=== PATIENT | female | born 1940 | race Caucasian/White ===

== ENCOUNTER → 2017-04-19 08:27 | Outpatient (CLI) | payer MEDICARE, OTHER, SELFPAY ==
--- NOTE | 2017-04-19 08:38 | US_ITS ---
US abdomen complete HISTORY: Weight loss mid abdominal mass ITS.REASON: EPIGASTRIC PAIN ORDERING PHYSICIAN: Trey Hurtado MD PATIENT AGE: 76 years COMPARISON: None FINDINGS: PANCREAS:Unremarkable. No obvious mass or abnormal fluid collection. No ductal dilatation LIVER:There is a 12 x 8 mm cyst in the right hepatic lobe. There is appropriate direction of blood flow within the portal vein is not enlarged.. Homogeneous echogenicity. No intrahepatic biliary ductal dilatation evident RIGHT KIDNEY:Unremarkable. Normal size and echogenicity. No hydronephrosis LEFT KIDNEY:Unremarkable. No hydronephrosis. Normal size and echogenicity. GALLBLADDER:Previous cholecystectomy. No ductal dilatation. AORTA:There is mild dilatation of the mid abdominal aorta measuring up to 3 cm. SPLEEN:Unremarkable. Normal size and echogenicity ASCITES:None demonstrated. Patient reports palpable mass in the upper midabdomen. This shows extensive shadowing measuring 2.6 cm transverse. Etiology of this is indeterminate. A fibrotic or calcific mass is considered. Suggest CT scan for further evaluation. IMPRESSION: 1. Palpable abdominal mass corresponds to an area of extensive shadowing and is incompletely evaluated by ultrasound. Suggest CT for further evaluation. 2. Mild dilatation of the abdominal aorta measuring up to 3 cm. 3. 12 x 8 mm cyst of the right hepatic lobe 4. Status post cholecystectomy
[2017-04-19 10:14] LABS: Basophils % 0.6 % (0.1-2.0); Eosinophils # 0.1 K/mm3 (0.0-0.4); Eosinophils % 1.1 % (0.1-12.0); Hematocrit 36.6 % (37.0-47.0); Hemoglobin 11.1 g/dL (12.2-16.2); Lymphocytes # 1.5 K/mm3 (0.7-4.5); Lymphocytes % 22.3 K/mm3 (10-50); Mean Corpuscular HGB Conc 30.3 g/dL (31.8-35.4); Mean Corpuscular Hemoglobin 29.1 pg (27.0-31.2); Mean Corpuscular Volume 96.2 fl (81-99); Mean Platelet Volume 7.2 fl (7.4-10.4); Monocytes # 0.5 K/mm3 (0.1-1.0); Monocytes % 7.2 % (1.7-9.3); Neutrophils # 4.6 K/mm3 (1.8-7.8); Neutrophils % 68.9 % (37.0-80.0); Platelet Count 433 K/mm3 (142-424); Red Cell Distribution Width 17.7 % (11.5-17.5); White Blood Count 6.6 K/mm3 (4.8-10.8)
[2017-04-19 12:31] LABS: Alanine Aminotransferase 14 U/L (12-78); Albumin Level 2.5 gm/dL (3.4-5.0); Albumin/Globulin Ratio 0.5 (1.1-1.8); Alkaline Phosphatase 186 U/L (46-116); Aspartate Amino Transferase 11 U/L (15-37); Bilirubin,Total 0.1 mg/dL (0.2-1.0); Blood Urea Nitrogen 21 mg/dL (7-18); Carbon Dioxide 23 mmol/L (21.0-32.0); Chloride 108 mmol/L (98-107); Creatinine,Serum 0.68 mg/dL (0.55-1.02); Estimated Glomerular Filt Rate 84 ml/min (>60); GFR (African American) 102 ML/MIN (>60); Globulin 5.4 gm/dl (1.3-3.2); Glucose 112 mg/dL (74-106); Sodium 142 mmol/L (136-145); Thyroid Stimulating Hormone 0.48 uIU/ml (0.358-3.740); Total Protein,Serum 7.9 gm/dL (6.4-8.2)
== END ==
PROVIDERS: Family Provider Internal Medicine Adolescent Medicine; PCP Internal Medicine Adolescent Medicine; Visit Provider Internal Medicine Adolescent Medicine
DX: R19.06 Epigastric swelling, mass or lump (principal); R63.4 Abnormal weight loss
CPT/HCPCS: 36415; 76700; 80053; 84443; 85025

== ENCOUNTER → 2017-07-23 11:43 | Outpatient (REF) | payer MEDICARE, MEDICAID, SELFPAY ==
[2017-07-23 13:35] LABS: Basophils % 0.6 % (0.1-2.0); Eosinophils # 0.2 K/mm3 (0.0-0.4); Eosinophils % 3.7 % (0.1-12.0); Hematocrit 35.3 % (37.0-47.0); Hemoglobin 10.5 g/dL (12.2-16.2); Lymphocytes # 0.7 K/mm3 (0.7-4.5); Lymphocytes % 17.3 K/mm3 (10-50); Mean Corpuscular HGB Conc 29.7 g/dL (31.8-35.4); Mean Corpuscular Hemoglobin 29.2 pg (27.0-31.2); Mean Corpuscular Volume 98.3 fl (81-99); Mean Platelet Volume 7.2 fl (7.4-10.4); Monocytes # 0.4 K/mm3 (0.1-1.0); Monocytes % 9.4 % (1.7-9.3); Neutrophils # 2.8 K/mm3 (1.8-7.8); Neutrophils % 69.1 % (37.0-80.0); Platelet Count 392 K/mm3 (142-424); Red Blood Count 3.59 M/mm3 (4.20-5.40); White Blood Count 4.1 K/mm3 (4.8-10.8)
[2017-07-23 14:24] LABS: Alanine Aminotransferase 14 U/L (12-78); Albumin Level 2.2 gm/dL (3.4-5.0); Albumin/Globulin Ratio 0.5 (1.1-1.8); Alkaline Phosphatase 173 U/L (46-116); Anion Gap 13.8 mEq/L (5-15); Aspartate Amino Transferase 19 U/L (15-37); Bilirubin,Total 0.2 mg/dL (0.2-1.0); Blood Urea Nitrogen 17 mg/dL (7-18); Calcium 7.8 mg/dL (8.5-10.1); Carbon Dioxide 25 mmol/L (21.0-32.0); Chloride 106 mmol/L (98-107); Creatinine,Serum 0.67 mg/dL (0.55-1.02); Estimated Glomerular Filt Rate 85 ml/min (>60); GFR (African American) 103 ML/MIN (>60); Globulin 4.6 gm/dl (1.3-3.2); Glucose 129 mg/dL (74-106); Potassium 3.8 mmoL/L (3.5-5.1); Sodium 141 mmol/L (136-145); Total Protein,Serum 6.8 gm/dL (6.4-8.2)
[2017-07-23 14:32] LABS: D-Dimer 2170 ng/mL (0-400)
== END ==
LOC: LAB.CARL 11:43
PROVIDERS: Visit Provider Nurse Practitioner Family
DX: R06.00 Dyspnea, unspecified (principal); J44.1 Chronic obstructive pulmonary disease with (acute) exacerbation
CPT/HCPCS: 80053; 85025; 85378

== ENCOUNTER → 2017-11-27 10:23 | Outpatient (REF) | payer MEDICARE, MEDICAID, SELFPAY ==
[2017-11-27 13:35] LABS: Basophils % 0.5 % (0.1-2.0); Eosinophils # 0.1 K/mm3 (0.0-0.4); Eosinophils % 2.1 % (0.1-12.0); Hematocrit 32.8 % (37.0-47.0); Hemoglobin 10.1 g/dL (12.2-16.2); Lymphocytes # 1.2 K/mm3 (0.7-4.5); Lymphocytes % 23.3 K/mm3 (10-50); Mean Corpuscular HGB Conc 30.9 g/dL (31.8-35.4); Mean Corpuscular Hemoglobin 30.3 pg (27.0-31.2); Mean Corpuscular Volume 98.1 fl (81-99); Mean Platelet Volume 7.6 fl (7.4-10.4); Monocytes # 0.2 K/mm3 (0.1-1.0); Monocytes % 4.4 % (1.7-9.3); Neutrophils # 3.6 K/mm3 (1.8-7.8); Neutrophils % 69.7 % (37.0-80.0); Platelet Count 294 K/mm3 (142-424); Red Blood Count 3.34 M/mm3 (4.20-5.40); Red Cell Distribution Width 18.5 % (11.5-17.5); White Blood Count 5.1 K/mm3 (4.8-10.8)
[2017-11-27 14:17] LABS: Alanine Aminotransferase 9 U/L (12-78); Albumin/Globulin Ratio 0.4 (1.1-1.8); Alkaline Phosphatase 155 U/L (46-116); Anion Gap 15.1 mEq/L (5-15); Aspartate Amino Transferase 14 U/L (15-37); Bilirubin,Total 0.2 mg/dL (0.2-1.0); Blood Urea Nitrogen 21 mg/dL (7-18); Calcium 7.8 mg/dL (8.5-10.1); Carbamazepine (Tegretol) 5.7 ug/ml (4.0-12.0); Carbon Dioxide 26 mmol/L (21.0-32.0); Chloride 104 mmol/L (98-107); Creatinine,Serum 0.75 mg/dL (0.55-1.02); Estimated Glomerular Filt Rate 75 ml/min (>60); GFR (African American) 90 ML/MIN (>60); Globulin 4.6 gm/dl (1.3-3.2); Glucose 94 mg/dL (74-106); Potassium 3.1 mmoL/L (3.5-5.1); Sodium 142 mmol/L (136-145); Total Protein,Serum 6.6 gm/dL (6.4-8.2)
== END ==
LOC: LAB.CARL 10:23
PROVIDERS: Visit Provider Internal Medicine Adolescent Medicine
DX: D64.9 Anemia, unspecified (principal)
CPT/HCPCS: 80053; 80156; 85025

== ENCOUNTER → 2018-11-26 17:36 | Outpatient (CLI) | payer MEDICARE, MEDICAID, SELFPAY ==
[2018-11-26 17:45] LABS: Basophils % 0.9 % (0.1-2.0); Eosinophils # 0.2 K/mm3 (0.0-0.4); Eosinophils % 3.5 % (0.1-12.0); Hematocrit 34.1 % (37.0-47.0); Hemoglobin 10.7 g/dL (12.2-16.2); Lymphocytes # 1.4 K/mm3 (0.7-4.5); Lymphocytes % 30.8 % (10-50); Mean Corpuscular HGB Conc 31.5 g/dL (31.8-35.4); Mean Corpuscular Hemoglobin 29.4 pg (27.0-31.2); Mean Corpuscular Volume 93.4 fl (81-99); Mean Platelet Volume 8.3 fl (7.4-10.4); Monocytes # 0.6 K/mm3 (0.1-1.0); Monocytes % 13.3 % (1.7-9.3); Neutrophils # 2.3 K/mm3 (1.8-7.8); Neutrophils % 51.4 % (37.0-80.0); Platelet Count 340 K/mm3 (142-424); Red Blood Count 3.65 M/mm3 (4.20-5.40); Red Cell Distribution Width 16.2 % (11.5-17.5); White Blood Count 4.4 K/mm3 (4.8-10.8)
== END ==
PROVIDERS: Visit Provider Internal Medicine Adolescent Medicine
DX: D64.9 Anemia, unspecified (principal)
CPT/HCPCS: 85025

== ENCOUNTER 2020-01-24 14:53 | Inpatient (IN) | payer MEDICARE, MEDICAID, SELFPAY ==
[2020-01-24] VITALS (8 sets, daily range): BP systolic 127–196; BP diastolic 88–94; PULSE 70–109; RESP 3–28; TEMP 37.6–38; O2SAT 93–98; BMI 38.0; BMI 32.8
--- NOTE | 2020-01-24 14:56 | HMH.EDGENADL ---
ED Disposition Clinical Impression: Acute and chronic respiratory failure with hypoxia, COVID-19, Pneumonia Disposition: Admitted As Inpatient Condition on Discharge: Critical - Critical Care Critical Care Time: Yes Attestation: On , the high probability of a clinically significant, sudden or life threatening deterioration of the following system(s) required my full and direct attention, intervention and personal management. The time I documented below is in addition to time spent performing reported procedures but includes the following listed in this critical care notation. Total Critical Care Time: 41 Vital system(s) involved:: Respiratory Failure My critical care processes included: Assessment & monitoring of V/S, Initial and Re-exams, Data Review/Interpretation, Coordinating Care, Medication Orders and management, Documentation Medical Decision Making - Medical Records Medical records reviewed: Yes: I reviewed the patient's medical records. - Jasmeet Inquiry Pt receiving controlled substance: No Vital Signs: 01/24/20 14:56 Temperature 100.4 F H Temperature Source Rectal Pulse Rate [Radial] 94 H Respiratory Rate 28 H Blood Pressure [Right Arm] 196/91 H Blood Pressure Mean [Right Arm] 126 Blood Pressure Source [Right Arm] Automatic Cuff Blood Pressure Position [Right Arm] Sitting 02 Sat by Pulse Oximetry 93 L Oxygen Delivery Method Non-Rebreather Oxygen Flow Rate (LPM) 10 - Lab Data Lab Results 01/24/20 14:50: WBC 6.4, RBC 4.63, Hgb 12.9, Hct 42.3, MCV 91.3, MCH 27.8, MCHC 30.5 L, RDW 17.6 H, Plt Count 310, MPV 7.8, Neut % (Auto) 77.4, Lymph % (Auto) 13.9, [place] % (Auto) 7.8, Eos % (Auto) 0.1, Baso % (Auto) 0.9, Neut # (Auto) 5.0, Lymph # (Auto) 0.9, [place] # (Auto) 0.5, Eos # (Auto) 0.0, Baso # (Auto) 0.1 01/24/20 14:50: Sodium 143, Potassium 4.7, Chloride 111 H, Carbon Dioxide 21 L, Anion Gap 15.7 H, BUN 38 H, Creatinine 1.40 H, Estimated Creat Clear 57, Estimated GFR 36 L, Est GFR ( Amer) 44 L, Glucose 216 H, Calcium 8.2 L, Total Bilirubin 0.3, AST 42 H, ALT 22, Alkaline Phosphatase 289 H, Troponin I 0.09 H, Total Protein 8.1, Albumin 3.8, Globulin 4.3 H, Albumin/Globulin Ratio 0.9 L 01/24/20 14:50: Lactate 2.9 H 01/24/20 14:50: Urine Color Yellow, Urine Appearance Sl cloudy, Urine pH 6.0, Ur Specific [place] 1.020, Urine Protein 1+, Urine Glucose (UA) Negative, Urine Ketones Negative, Urine Blood 3+, Urine Nitrate Negative, Urine Bilirubin Negative, Urine Urobilinogen 0.2, Ur Leukocyte Esterase 2+ A, Urine RBC 50-100, Urine WBC 50-100, Ur Squamous Epith Cells 5-10, Amorphous Sediment 1+, Urine Bacteria None, RBC Casts Occasional 01/24/20 15:08: Specimen Source Right radial, O2 % 70%, ABG pH 7.37, ABG pCO2 36.2, ABG pO2 110.2 H, ABG HCO3 20.4 L, ABG Total CO2 21.5 L, ABG O2 Saturation 98, ABG Base Excess -4.9 L, Zohaib Test Patient unable, Vent Rate 20, Tidal Volume bipap20/10 01/24/20 15:09: Chlamy pneumoniae PCR Not detected, Adenovirus (PCR) Not detected, B. pertussis DNA (PCR) Not detected, Coronavirus OC43 (PCR) Not detected, Coronavirus HKU1 (PCR) Not detected, Coronavirus 229E (PCR) Not detected, SARS-CoV-2 (PCR) Detected A, Coronavirus NL63 (PCR) Not detected, Human Metapneumovir PCR Not detected, Influenza A (H1) PCR Not detected, Influ A (H1N1/09) PCR Not detected, Influenza A (H3) PCR Not detected, Influenza Type A (PCR) Not detected, Influenza Type B (PCR) Not detected, M. pneumoniae (PCR) Not detected, Parainfluenza 1 (PCR) Not detected, Parainfluenza 2 (PCR) Not detected, Parainfluenza 3 (PCR) Not detected, Parainfluenza 4 (PCR) Not detected, RSV (PCR) Not detected, Entero/Rhino (PCR) Not detected Result diagrams: 01/24/20 14:50 12/19/20 14:50 Orders (Tests/Meds): ED MEDICATIONS Generic Name Dose Route Start Last Admin Trade Name Freq PRN Reason Stop Dose Admin Acetaminophen 650 mg 01/24/20 15:12 Acetaminophen 650mg Suppository RC 02/23/20 15:11 Q6HP PRN Mild pain,fever,headache
--- NOTE | 2020-01-24 14:57 | XR_ITS ---
PROCEDURE: XR CHEST PORTABLE CLINICAL HISTORY: dyspnea Covid19 positive COMPARISON: CR CXR2 XR chest AP from 07/23/2017 FINDINGS: The cardiomediastinal silhouette and pulmonary vascularity are within normal limits. There is evidence of old granulomatous disease with calcified granulomas hilar lymph nodes. There is patchy density in the right lower lobe consistent with an area of infiltrate. Upper lobes are clear . Degenerative changes of the shoulders. IMPRESSION: Patchy right lower lobe pneumonia There are chronic changes in the left lower lobe. Dictated by: Zohaib Spain MD 01/24/2020 15:50 Zohaib Spain MD in [place] 01/24/2020 15:50
[2020-01-24 15:10] LABS: Adenovirus,PCR Not Detected (NotDetected); Bordetella Pertussis Not Detected (NotDetected); Chlamydophila Pneumoniae, PCR Not Detected (NotDetected); Coronavirus 229E Not Detected (NotDetected); Coronavirus NL63 Not Detected (NotDetected); Coronavirus OC43 Not Detected (NotDetected); Coronovirus HKU1,PCR Not Detected (NotDetected); Human Metapneumovirus Not Detected (NotDetected); Influenza A, PCR Not Detected (NotDetected); Influenza AH1, 2009 Not Detected (NotDetected); Influenza AH1, PCR Not Detected (NotDetected); Influenza AH3,PCR Not Detected (NotDetected); Influenza B, PCR Not Detected (NotDetected); Mycoplasma Pneumoniae, PCR Not Detected (NotDetected); Parainfluenza 1, PCR Not Detected (NotDetected); Parainfluenza 2, PCR Not Detected (NotDetected); Parainfluenza 3, PCR Not Detected (NotDetected); Parainfluenza 4, PCR Not Detected (NotDetected); Respiratory Syncytial Virus Not Detected (NotDetected); Rhinovirus/Enterovirus Not Detected (NotDetected)
[2020-01-24 15:11] LABS: Basophils # 0.1 K/mm3 (0-0.2); Basophils % 0.9 % (0.1-2.0); Eosinophils % 0.1 % (0.1-12.0); Hematocrit 42.3 % (37.0-47.0); Hemoglobin 12.9 g/dL (12.2-16.2); Lymphocytes # 0.9 K/mm3 (0.7-4.5); Lymphocytes % 13.9 % (10-50); Mean Corpuscular HGB Conc 30.5 g/dL (31.8-35.4); Mean Corpuscular Hemoglobin 27.8 pg (27.0-31.2); Mean Corpuscular Volume 91.3 fl (81-99); Mean Platelet Volume 7.8 fl (7.4-10.4); Monocytes # 0.5 K/mm3 (0.1-1.0); Monocytes % 7.8 % (1.7-9.3); Neutrophils % 77.4 % (37.0-80.0); Platelet Count 310 K/mm3 (142-424); Red Blood Count 4.63 M/mm3 (4.20-5.40); Red Cell Distribution Width 17.6 % (11.5-17.5); White Blood Count 6.4 K/mm3 (4.8-10.8)
[2020-01-24 15:17] LABS: Chloride 111 mmol/L (98-107); Potassium 4.7 mmoL/L (3.5-5.1); Sodium 143 mmol/L (136-145)
[2020-01-24 15:20] LABS: Alanine Aminotransferase 22 U/L (12-78); Albumin Level 3.8 g/dl (3.5-5.0); Alkaline Phosphatase 289 U/L (38-126); Anion Gap 15.7 mEq/L (5-15); Aspartate Amino Transferase 42 U/L (14-36); Bilirubin,Total 0.3 mg/dl (0.2-1.3); Blood Urea Nitrogen 38 mg/dl (7-17); Calcium 8.2 mg/dl (8.4-10.2); Carbon Dioxide 21 mmol/L (22.0-30.0); Creatinine Clearance Estimated 57 mL/min (50-200); Estimated Glomerular Filt Rate 36 ml/min (>60); GFR (African American) 44 ML/MIN (>60); Glucose 216 mg/dl (74-100); Microscopic, Urine URINE MICROSCOPIC (MICROSCOPIC); Total Protein,Serum 8.1 g/dl (6.3-8.2)
[2020-01-24 15:21] LABS: Appearance,Urine SL CLOUDY (Clear); Bilirubin,Urine Negative (Negative); Blood, Urine 3+ (Negative); Color,Urine YELLOW (Yellow); Glucose,Urine (UA) Negative (Negative); Ketones,Urine Negative (Negative); Leukocyte Esterase,Urine 2+ (Negative); Nitrate,Urine Negative (Negative); Protein,Urine 1+ (Negative); Urobilinogen,Urine 0.2 EU/dl (0.2)
[2020-01-24 15:24] LABS: Lactic Acid 2.9 mmol/L (0.7-2.1)
[2020-01-24 15:26] LABS: Amorphous Sediment,Urine 1+ /lpf; RBC,Urine 50-100 #/hpf (0-3); Red Blood Cell Casts,Urine Occasional #/lpf (0); WBC,Urine 50-100 #/hpf (0-3)
[2020-01-24 15:32] LABS: Troponin I 0.09 ng/ml (0.00-0.034)
--- NOTE | 2020-01-24 15:40 | PC.NURSE ---
received call from Roseanne Soriano RN that Dr. Zapata has ordered a 500mL NS sepsis bolus NOW and then to run NS @ 100mL/hr as MIVF.
[2020-01-24 15:42] LABS: Albumin/Globulin Ratio 0.9 (1.1-1.8); Globulin 4.3 g/dL (1.3-3.2)
--- NOTE | 2020-01-24 15:46 | PC.NURSE ---
pt taken to icu per Miguel Angel Still and Dr Webster
--- NOTE | 2020-01-24 15:49 | PC.NURSE ---
dr mathew spoke with cherry gomez's daughter [phone] regarding DNR status. states she would like intubation if needed
[2020-01-24 16:07] LABS: ABG Base Excess -4.9 mmol/L (-2.4-2.3); ABG HCO3 20.4 mmhg (22.0-26.0); ABG Oxygen Saturation 98 % (90-100); ABG PCO2 36.2 mmhg (35.0-45.0); ABG PH 7.37 mmol/L (7.35-7.45); ABG PO2 110.2 mmhg (80-100); ABG TCO2 21.5 mmhg (23-27)
--- NOTE | 2020-01-24 16:08 | PC.NURSE ---
notified of Lactate acid and meeting criteria for sepsis. States to give a 500ml bolus and no other fluids needed at this time.
--- NOTE | 2020-01-24 16:11 | PC.NURSE ---
Spoke with Malick Rhodes RN in the COVID unit related to sepsis risk. Notified of 500ml bolus.
[2020-01-24 16:14] LABS: Allen's Test Patient Unable; Oxygen 70% %; Pressure Support 10; Source Right Radial; Vent Rate 20
--- NOTE | 2020-01-24 16:27 | PC.NURSE ---
Dr Webster speaking with Dr Bloom
[2020-01-24 16:32] LABS: Coronavirus 19, PCR Detected (NotDetected)
--- NOTE | 2020-01-24 17:06 | PC.NURSE ---
Medication orders do not reflect what Roseanne Soriano RN informed me over the phone. Called ED (Miguel Angel Still RN) and informed her. She reports that Dr. Hinojosa wants NS 500mL bolus and then to run NS @ 100mL/hr. Dr. Hinojosa will fix orders.
[2020-01-24 18:35] LABS: Reflex Lactic Add Lactic Reflex
[2020-01-24 18:44] LABS: Lactic Acid Follow Up (RFLX 1) 1.4 mmol/L (0.7-2.1)
[2020-01-24 18:56] LABS: Troponin I 0.09 ng/ml (0.00-0.034)
--- NOTE | 2020-01-24 19:54 | PC.NURSE ---
Pt has done well on bipap since being admitted at approx 1600. Pt is alert x 1 to self. NAD at this time and remains 98%. Meds per apr. Lungs bilat rhonchi. VSS. Abd soft and non tender. Lai hands are contracted. NSR on tele.
[2020-01-24 21:35] LABS: Troponin I 0.08 ng/ml (0.00-0.034)
[2020-01-25] VITALS (13 sets, daily range): BP systolic 107–172; BP diastolic 50–69; PULSE 50–78; RESP 20–28; TEMP 36.9–37.8; O2SAT 95–99; BMI 34.2; BMI 34.4
--- NOTE | 2020-01-25 03:29 | PC.NURSE ---
pt able to state name and birthdate. wheezes noted in lungs. pt remain on BIPAP with O2 sats 95-98%. pt denies any pain. pt has been turned Q2 and oral care administered. f/c draining yellow urine. pt has rested quietly this shift
[2020-01-25 05:16] LABS: Basophils % 0.7 % (0.1-2.0); Hematocrit 36.7 % (37.0-47.0); Lymphocytes # 1.3 K/mm3 (0.7-4.5); Lymphocytes % 26.3 % (10-50); Mean Corpuscular HGB Conc 31.2 g/dL (31.8-35.4); Mean Corpuscular Hemoglobin 28.1 pg (27.0-31.2); Mean Corpuscular Volume 90.1 fl (81-99); Mean Platelet Volume 7.9 fl (7.4-10.4); Monocytes # 0.4 K/mm3 (0.1-1.0); Monocytes % 9.1 % (1.7-9.3); Neutrophils # 3.1 K/mm3 (1.8-7.8); Neutrophils % 63.9 % (37.0-80.0); Platelet Count 256 K/mm3 (142-424); Red Blood Count 4.08 M/mm3 (4.20-5.40); Red Cell Distribution Width 17.7 % (11.5-17.5); White Blood Count 4.8 K/mm3 (4.8-10.8)
[2020-01-25 05:17] LABS: Hemoglobin 11.5 g/dL (12.2-16.2)
[2020-01-25 05:27] LABS: Chloride 114 mmol/L (98-107); Potassium 4.8 mmoL/L (3.5-5.1); Sodium 144 mmol/L (136-145)
[2020-01-25 05:29] LABS: Blood Urea Nitrogen 34 mg/dl (7-17); Creatinine Clearance Estimated 55 mL/min (50-200); Estimated Glomerular Filt Rate 48 ml/min (>60); GFR (African American) 58 ML/MIN (>60)
[2020-01-25 05:30] LABS: Alanine Aminotransferase 14 U/L (12-78); Albumin Level 3.2 g/dl (3.5-5.0); Albumin/Globulin Ratio 0.9 (1.1-1.8); Alkaline Phosphatase 236 U/L (38-126); Anion Gap 10.8 mEq/L (5-15); Aspartate Amino Transferase 35 U/L (14-36); Bilirubin,Total 0.2 mg/dl (0.2-1.3); Calcium 8.2 mg/dl (8.4-10.2); Carbon Dioxide 24 mmol/L (22.0-30.0); Globulin 3.7 g/dL (1.3-3.2); Total Protein,Serum 6.9 g/dl (6.3-8.2)
[2020-01-25 05:33] LABS: Glucose 106 mg/dl (74-100)
--- NOTE | 2020-01-25 08:09 | DIET.NUTRFU ---
Addendum entered by Aylin Schmidt 01/25/20 09:16: Per Jaison Butler pt does require full assistance feeding and has hx becoming SOB while eating. Protein supplementation changed to protein powder in food TID. She is on thin liquids there. Original Note: Initial nutritional assessment, IP/consult completed. Pt is on soft mechanical diet at [facility]. Diet given with protein shakes TID. Pt at risk inadequate energy/protein intake. Will monitor and alter nutritional care as indicated.
--- NOTE | 2020-01-25 08:16 | HMH.PHACONS ---
- Pharmacy Consult Date: 01/25/20 Time: 08:17 Referring provider: DR. SORIANO Reason for Consult:: VANCOMYCIN DOSING Allergies and ADEs:: Allergies Allergy/AdvReac Type Severity Reaction Status Date / Time No Known Allergies Allergy Unverified 01/25/20 08:09 Home Medications:: Home Medications Medication Instructions Recorded Confirmed Type Acetaminophen [Tylenol 500mg 500 mg PO BID 01/24/20 01/24/20 History tablet] Ascorbic Acid [Vitamin C] 500 mg PO DAILY 01/24/20 01/24/20 History Aspirin [Aspirin 81mg EC Tab] 81 mg PO DAILY 01/24/20 01/24/20 History Azithromycin [Zithromax 250mg 250 mg PO DIRECTED 01/24/20 01/24/20 History tab] Cefdinir [Omnicef 300mg Capsule] 300 mg PO BID 01/24/20 01/24/20 History Celecoxib [CeleBREX 100mg Capsule] 100 mg PO BID 01/24/20 01/24/20 History Cholecalciferol (Vitamin D3) 2 tab PO DAILY 01/24/20 01/24/20 History [Vitamin D3 1,000 Unit Cap] Eslicarbazepine Acetate [Aptiom] 600 mg PO DAILY 01/24/20 01/24/20 History Fluticasone/Vilanterol [Breo 1 inh IH DAILY 01/24/20 01/24/20 History Ellipta 100-25 Mcg INH] Furosemide [Furosemide 40MG tAB*] 40 mg PO DAILY 01/24/20 01/24/20 History Ipratropium/Albuterol Sulfate 3 ml IH Q4H 01/24/20 01/24/20 History [Duoneb 3mL neb] Omeprazole Magnesium [Prilosec Otc 20 mg PO DAILY 01/24/20 01/24/20 History 20mg Tab] Tramadol HCl [Tramadol 50mg 50 mg PO Q6HP PRN 01/24/20 01/24/20 History Tab] Zinc Gluconate [Zinc] 50 mg PO BID 01/24/20 01/24/20 History dexAMETHasone [Dexamethasone] 4 mg PO BID 01/24/20 01/24/20 History Height: 1.57 m Weight: 85 kg Laboratory Results:: Laboratory Results - last 24 hr 01/24/20 14:50: WBC 6.4, RBC 4.63, Hgb 12.9, Hct 42.3, MCV 91.3, MCH 27.8, MCHC 30.5 L, RDW 17.6 H, Plt Count 310, MPV 7.8, Neut % (Auto) 77.4, Lymph % (Auto) 13.9, [place] % (Auto) 7.8, Eos % (Auto) 0.1, Baso % (Auto) 0.9, Neut # (Auto) 5.0, Lymph # (Auto) 0.9, [place] # (Auto) 0.5, Eos # (Auto) 0.0, Baso # (Auto) 0.1 01/24/20 14:50: Sodium 143, Potassium 4.7, Chloride 111 H, Carbon Dioxide 21 L, Anion Gap 15.7 H, BUN 38 H, Creatinine 1.40 H, Estimated Creat Clear 57, Estimated GFR 36 L, Est GFR ( Amer) 44 L, Glucose 216 H, Calcium 8.2 L, Total Bilirubin 0.3, AST 42 H, ALT 22, Alkaline Phosphatase 289 H, Troponin I 0.09 H, Total Protein 8.1, Albumin 3.8, Globulin 4.3 H, Albumin/Globulin Ratio 0.9 L 01/24/20 14:50: Lactate 2.9 H 01/24/20 14:50: Urine Color Yellow, Urine Appearance Sl cloudy, Urine pH 6.0, Ur Specific [place] 1.020, Urine Protein 1+, Urine Glucose (UA) Negative, Urine Ketones Negative, Urine Blood 3+, Urine Nitrate Negative, Urine Bilirubin Negative, Urine Urobilinogen 0.2, Ur Leukocyte Esterase 2+ A, Urine RBC 50-100, Urine WBC 50-100, Ur Squamous Epith Cells 5-10, Amorphous Sediment 1+, Urine Bacteria None, RBC Casts Occasional 01/24/20 15:08: Specimen Source Right radial, O2 % 70%, ABG pH 7.37, ABG pCO2 36.2, ABG pO2 110.2 H, ABG HCO3 20.4 L, ABG Total CO2 21.5 L, ABG O2 Saturation 98, ABG Base Excess -4.9 L, Zohaib Test Patient unable, Vent Rate 20, Tidal Volume bipap20/10 01/24/20 15:09: Chlamy pneumoniae PCR Not detected, Adenovirus (PCR) Not detected, B. pertussis DNA (PCR) Not detected, Coronavirus OC43 (PCR) Not detected, Coronavirus HKU1 (PCR) Not detected, Coronavirus 229E (PCR) Not detected, SARS-CoV-2 (PCR) Detected A, Coronavirus NL63 (PCR) Not detected, Human Metapneumovir PCR Not detected, Influenza A (H1) PCR Not detected, Influ A (H1N1/) PCR Not detected, Influenza A (H3) PCR Not detected, Influenza Type A (PCR) Not detected, Influenza Type B (PCR) Not detected, M. pneumoniae (PCR) Not detected, Parainfluenza 1 (PCR) Not detected, Parainfluenza 2 (PCR) Not detected, Parainfluenza 3 (PCR) Not detected, Parainfluenza 4 (PCR) Not detected, RSV (PCR) Not detected, Entero/Rhino (PCR) Not detected 01/24/20 18:30: Troponin I 0.09 H 01/24/20 18:30: Lactate 1.4 01/24/20 21:00: Troponin I 0.08 H
--- NOTE | 2020-01-25 08:28 | HMH.HP ---
*Admission Date: 01/24/20 *Chief complaint: Acute on chronic respiratory failure secondary to COVID-19 virus *History of present illness: Patient is an 79-year-old female presenting with shortness of air with Covid positive status. On arrival, patient does have acute respiratory distress. On nonrebreather at 10 L her saturations are in the mid 90s she does have tachypnea, accessory muscle use. I am concerned that she may need noninvasive positive pressure ventilation or even intubation. No negative pressure rooms available in the emergency department so arrangements for patient to be taken to the ICU while still under ER care made. Patient taken to room 263 and placed on BiPAP. X-ray was obtained on her arrival she was hypertensive to ensure no overt pulmonary edema. No overt currently edema but there does appear to be a right lung infiltrate that could be a superimposed bacterial infection. Sepsis bundle initiated immediately on arrival as infectious source is leading suspicion. Vancomycin and cefepime given for hospital acquired pneumonia. 2 sets of blood cultures obtained prior to this with lactic acid with reflex pending. She is an 79-year-old female I believe 30 cc/kg bolus of crystalloid solution would be more harmful than beneficial. A 500 cc KG bolus given initially. Fluid status/perfusion status will be monitored closely. Other lab work will also be obtained. I did reach out to family, daughter Jenn, and discussed patient's care in detail. Currently, patient is a full code and daughter would like patient to be resuscitated accordingly. She is the guardian. After several minutes on BiPAP patient has had drastic improvement on recheck. ABG demonstrates no hypercapnia or hypoxia. She is resting comfortably in exam bed with resolution of tachycardia and more normotensive at this time. Covid cocktail has been ordered. Per emergency department physician. Patient is a patient at local assisted. Diagnosed with COVID-19 several days ago, not a candidate for antibody therapy infusion because of increasing oxygen requirement, treated with supportive care at the assisted but became more tenuous and was transferred to ER as noted above. Events of yesterday noted. Patient now in special care unit on BiPAP. Much more stable through the night. [facility] History I have reviewed the patient's past medical history: Yes Medical History: Reports:: Congestive Heart Failure (Systolic and diastolic dysfunction), Chronic Obstructive Pulmonary Disease (COPD), Home Oxygen, Hyperlipidemia, Hypertension, Renal Disease, Renal Insufficiency (Stage III chronic kidney disease) Denies:: Diabetes Mellitus Type 1, Diabetes Mellitus Type 2 *Have you ever received a pneumonia vaccine?: Yes *Have you received a flu vaccine this season?: Yes Other Medical History: Reports: Anemia, Arthritis (Rheumatoid arthritis. Currently not active, significant joint damage) - *Social History Last grade of school completed: High school graduate Smoking Status: Former smoker Alcohol Intake: never *Occupational Status:: retired Housing: assisted Household Members: other *Travel in the last 8 weeks: None Family Hx:: Non-contributory Review of Systems - Review of Systems Review of systems:: pertinent systems reviewed and negative unless documented below Meds Home Medications Medication Instructions Recorded Confirmed Type Acetaminophen [Tylenol 500mg 500 mg PO BID 01/24/20 01/24/20 History tablet] Ascorbic Acid [Vitamin C] 500 mg PO DAILY 01/24/20 01/24/20 History Aspirin [Aspirin 81mg EC Tab] 81 mg PO DAILY 01/24/20 01/24/20 History Azithromycin [Zithromax 250mg 250 mg PO DIRECTED 01/24/20 01/24/20 History tab] Cefdinir [Omnicef 300mg Capsule] 300 mg PO BID 01/24/20 01/24/20 History Celecoxib [CeleBREX 100mg Capsule] 100 mg PO BID 01/24/20 01/24/20 History Cholecalciferol (Vitamin D3) 2 tab PO DAILY 01/24/20 01/24/20 History [Vitamin D3
--- NOTE | 2020-01-25 11:05 | HMH.PHAVTE ---
[facility] Pharmacy VTE Monitoring - Patient Demographics Admission date: 01/25/20 Report Date: 01/25/20 Time: 11:05 Allergies/Adverse Reactions: Patient Allergies No Known Allergies Allergy (Unverified 01/25/20 08:09) Height: 1.57 m Weight: 85 kg Patient Problems: Current Active Problems Acute exacerbation of chronic obstructive airways disease (Acute) Acute and chronic respiratory failure with hypoxia (Acute) COVID-19 (Acute) Pneumonia (Acute) - VTE Risk Labs: VTE Related Lab Results Hgb 11.5 g/dL (12.2-16.2) L D 01/25/20 04:36 Hct 36.7 % (37.0-47.0) L 01/25/20 04:36 Plt Count 256 K/mm3 (142-424) 01/25/20 04:36 BUN 34 mg/dl (7-17) H 01/25/20 04:36 Creatinine 1.10 mg/dl (0.52-1.04) H D 01/25/20 04:36 Estimated Creat Clear 55 mL/min (50-200) 01/25/20 04:36 Was VTE Risk Assessment Performed: Yes VTE Score: 8 VTE Risk Level: Moderate Risk - Prophylaxis Types of VTE Prophylaxis: Pharmacological Location of Applied Device: Not Applicable Pharmacologic Type: Enoxaparin (LOVENOX STARTED.)
--- NOTE | 2020-01-25 11:05 | HMH.PHAINT ---
MED REC-COMPARED MED REC WITH RETIREMENT MAR. CORRECTIONS MADE. CONTACTED DR. SORIANO ABOUT ANTI SEIZURE MED APTIOM. CONVERTING TO EQUIVALENT DOSE OF OXCARBAZEPINE.
--- NOTE | 2020-01-25 13:59 | PC.NURSE ---
ATTEMPTED TO REMOVE BIPAP FROM PT DURING LUNCH SO THAT PT COULD EAT AND TAKE MEDICATIONS, PT DESATED RAPIDLY INTO MID 80'S WHILE ON 5LNC, BIPAP WAS THEN REAPPLIED, PT BEGAN TO REFUSE BIPAP, SHE WAS EDUCATED ON THE BENEFITS OF BIPAP FOR O2 SUPPORT, SHE CONTINUED TO BECOME MORE AGITATED, MD ARNETT WAS CONTACTED FOR RECOMMENDATIONS, NO NEW ORDERS OBTAINED, PT EVENTUALLY CALMED DOWN WITH ASSISTANCE FROM STAFF AT BEDSIDE. VSS AT THIS TIME, BIPAP AT 50% FIO2, WILL CONTINUE TO MONITOR.
--- NOTE | 2020-01-25 14:03 | PC.NURSE ---
1045 OXCARBAZEPINE AND 1300 ASCORBIC ACID HELD R/T TO PT INABILITY TO TOLERATE REMOVAL OF BIPAP.
--- NOTE | 2020-01-25 16:30 | PC.NURSE ---
SHE IS ABLE TO STATE HER NAME AND BIRTHDAY, SHE IS ABLE TO MAKE NEEDS KNOWN TO STAFF, HAS SOME EPISODES OF CONFUSION T/O THE DAY, CONTRACTURES NOTED TO BUE FROM THE WRIST DOWN, SHE HAS SLEPT AT INTERVALS THIS SHIFT, HER VEGA CATH IS DRAINING CLEAR YELLOW URINE, SHE HAS HAD MINIMAL ORAL INTAKE THIS SHIFT R/T TO HER INABILITY TO TOLERATE REMOVAL OF THE BIPAP, HER FIO2 WAS TITRATED TO 50% THIS AM BY RT AND SHE HAS MANTAINED O2 SATS >93%. RT ATTEMPTED TO PLACE PT ON NC BUT SHE WAS UNABLE TO MAINTAIN O2 >88%. PT HAS NOT C/O PAIN THIS SHIFT, PT DID REQUIRE COACHING WHEN BIPAP WAS REPLACED: SHE WAS REFUSING AT FIRST BUT WAS EDUCATED ON BENEFITS, SHE STATES NO NEEDS AT THIS TIME, WILL CONTINUE TO MONITOR.
--- NOTE | 2020-01-25 23:48 | PC.NURSE ---
Pt found having urine leaking surrounding segal cath. Partial bath and total linen changed at this time. Segal was assessed and found to be in good position, balloon still intact and draining urine. Segal cath care completed at this time as well.
[2020-01-26] VITALS (12 sets, daily range): BP systolic 108–142; BP diastolic 59–86; PULSE 50–100; RESP 16–33; TEMP 36.6–38.3; O2SAT 91–100; BMI 34.2
--- NOTE | 2020-01-26 06:31 | PC.NURSE ---
Pt is A&O to person and has been turned q2 this shift, tolerated well. Pt denies any pain or SOA. Pt has called out several times saying Help me and repeats this until she is satisfied, without giving directions to what her needs are. Rhonchi and diminished lungs sounds on auscultation. Tolerated the bipap well, SaO2 >94% on the bipap Pt had 1 small, soft BM this shift. Segal cath in place draining clear, straw urine and a total output of 550ml and 1 episode of incontinence over the segal. Foot pillows in place to bilat heels. LR infusing at 125ml/hr to PIV. Oral care given 3x this shift. Water offered but pt refused, requesting Pepsi and drank 1 can this shift. NSR & Sinus Morgan on tele.
--- NOTE | 2020-01-26 07:01 | XR_ITS ---
PROCEDURE: XR CHEST PORTABLE CLINICAL HISTORY: f/u exam Follow-up pneumonia, Covid19 COMPARISON: CR CXR2 XR chest AP from 07/23/2017 CR XR CHEST PORTABLE from 01/24/2020 FINDINGS: The cardiomediastinal silhouette and pulmonary vascularity are within normal limits. There is bilateral lower lobe pneumonia right worse than left. The pneumonia is worse than when compared to the previous exam on both sides. Upper lobes are clear. No obvious effusion . Severe degenerative changes are present in the shoulders IMPRESSION: Worsening bilateral lower lobe pneumonia right more extensive than left Dictated by: Zohaib Spain MD 01/26/2020 07:52 Zohaib Spain MD in [place] 01/26/2020 07:52
--- NOTE | 2020-01-26 08:00 | CA_ITS ---
APPROVED REPORT EXAM: Limited 2D Echocardiogram Inserting Machine Operator: Luzma Johnston RVT Ht: 5 ft 1 in Wt: 186lbs BSA: 1.83 BP: 127/86 mmHg Indications: SOA,COVID,PNEUMONIA,RESP FAILURE,CHG,CKD,EX SMOKER,COPD TDS-NO MEASUREMENTS OR DOPPLERS COULD BE OBTAINED PT VERY SOA, TACHY AND ANXIOUS Left Ventricle Technically difficult study because of the patient factors and poor acoustic windows. Left atrium is mildly enlarged, left ventricle is normal size, mild concentric left ventricular hypertrophy, visually estimated ejection fraction 55% with no regional wall motion abnormality, diastolic parameters are inconclusive. Right Ventricle Right atrium and right ventricle are mildly enlarged with normal contractility. Aortic Valve Aortic valve is minimally thickened and fibrosed, there is no aortic stenosis or aortic insufficiency. Mitral Valve Mitral valve is grossly normal, there is mild mitral regurgitation. Tricuspid Valve Tricuspid valve is grossly normal, there is mild tricuspid regurgitation, tricuspid regurgitation jet velocity is inadequate for calculation of the right ventricular systolic pressure. Pulmonic Valve Pulmonic valve is not well visualized. Great Vessels Aortic root is normal size. Pericardium Trivial pericardial effusion and anterior echo-free space seen. Conclusion 1. Technically difficult study because of the patient factors and poor acoustic windows. 2. Mild biatrial enlargement, normal left ventricular size, mild concentric left ventricular hypertrophy, visually estimated ejection fraction 55% with no regional wall motion abnormality, diastolic parameters are inconclusive. 3. Mildly enlarged right ventricle with normal contractility. 4. Trivial pericardial effusion and anterior echo-free space seen. Electronically signed by : Saulo Briceño, 01/27/2020 06:06:57
--- NOTE | 2020-01-26 08:16 | HMH.ACPN2 ---
Internal Medicine - PN: Subj *Date: 01/26/20 *Time: 08:16 Interval history: ICU progress note: Patient remains on BiPAP, remains conversant, alert, has eaten somewhat but is difficult to feed because she becomes tachycardic when taken off the BiPAP support. Exam Vital signs and Labs for Last 24 Hours: Temp Pulse Resp BP Pulse Ox 99.1 F 57 L 24 108/59 L 96 01/26/20 04:00 01/26/20 04:00 01/26/20 04:00 01/26/20 04:00 01/26/20 04:00 I & O for Last 24 hours: Intake & Output 01/23/20 01/24/20 01/25/20 01/26/20 11:59 11:59 11:59 11:59 Intake Total 1974 / 2214 1160 / 1160 Output Total 400 / 400 1150 / 1150 Balance 1574 / 1814 Weight 187 lb 6.287 oz 186 lb Microbiology Reports for the Last 24 Hours: Microbiology 01/24/20 14:50 Urine,Catheterized Urine Culture - Preliminary NO GROWTH AFTER 24 HOURS Narrative: Patient is alert. Oriented x2. Lungs have rhonchi but fairly symmetric air entry. Heart rate regular in the upper 60s, sinus rhythm on BiPAP settings. O2 saturations 98%. No extremity edema or clubbing. 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 Abdomen soft. Globally weak but moves all extremities. No detectable cranial nerve deficits. No rash or vasculitis noted Assessment and Plan (1) Acute and chronic respiratory failure with hypoxia Status: Acute Category: Medical Code(s): J96.21 - Acute and chronic respiratory failure with hypoxia (2) COVID-19 Status: Acute Category: Medical Code(s): U07.1 - COVID-19 (3) Pneumonia Status: Acute Category: Medical Code(s): J18.9 - Pneumonia, unspecified organism (4) Acute exacerbation of chronic obstructive airways disease Status: Acute Category: Medical Code(s): J44.1 - Chronic obstructive pulmonary disease with (acute) exacerbation - Assessment and plan all Dx Assessment and Plan for all problems:: Significant oxygen impairment remains. Continue BiPAP. We will try to enhance nutrition as best we can with protein shakes and protein powder added to food. Continue current broad-spectrum antibiotic therapy. Urine culture is negative, blood cultures pending. Chest x-ray this morning looks somewhat improved. Nebs as needed. Remains on DVT and stress ulcer prophylaxis. Please note 1 hour critical care time including record review.
--- NOTE | 2020-01-26 09:39 | SW/DCPLANNER ---
Addendum entered by Kaylene Escalante 02/05/20 10:51: SET UPDATES ON THIS PATIENT TO [facility]... STILL NO DISCHARGE DATE YET....PATIENT APPEARS TO BE IMPROVING... Addendum entered by Kaylene Escalante 02/03/20 07:00: PATIENT REMAINS IN THE COVID UNIT AND CONVERSATION HAS BEEN WITH DAUGHTER REGARDING NOURISHMENT... DAUGHTER WANTS TUBE FEEDINGS FOR HER MOTHER...DR SORIANO DID HAVE CONVERSATION WITH DAUGHTER AND WAS GOING TO PUT IN A SURGERY CONSULT.. WAITING TO SEE WHAT HAPPENS... Addendum entered by Krupa Thurston 01/29/20 09:39: Updated patient information has been faxed to Catalina at [facility]. Catalina has stated that patient can discharge back to [facility] whenever she is medically stable for discharge. Addendum entered by Krupa Thurston 01/28/20 10:33: I have updated Catalina with [facility] regarding this patient. Original Note: MS GALLEGOS IS A RESIDENT OF [facility] IN [place] AND IS ON A MEDCAID BEDHOLD...SHE ADMITTED WITH A DIAGNOSIS OF COVID..SHE IS CURRENTLY IN OUR COVID UNIT AND IS ON BIPAP.. ONCE SHE IS MEDICALLY STABLE SHE WILL RETURN BACK TO HER [facility] BED, DISPOSITION UNCERTAIN...
--- NOTE | 2020-01-26 10:29 | PC.NURSE ---
Addendum entered by Diana Amador RN 01/26/20 11:31: Ativan ordered was 0.25mg Original Note: Patient became very agitated while taking medications this morning. She took her medications with applesauce crushed, as per her normal, and drank an orange juice. Patient began to vomit. Used yaunkeur to suction patient. Respirations reached 33 per minute, heart rate sustained a max heart rate of 115 bpm. Patient remained in this condition for several minutes. Once nausea had passed patient was placed back on the bipap. was notified. Order given for zofran and 0.5mg of ativan IV tid prn for anxiety. Patient is now resting comfortably with respirations of 22.
--- NOTE | 2020-01-26 12:02 | DIET.NUTRFU ---
Pt with minimal PO intake dt becoming SOB/tachycardiac when off BiPAP. Of note pt has hx at [facility] of becoming SOB while eating as well. She has had minimal oral fluid intake as well, fluid needs are being met through IVF. TID protein shakes added to diet order in addition to TID protein fortification in meals. This amount of protein is appropriate given pt's level of stress and unlikeliness to consume 100%. Weight gain of 6# since admit.
--- NOTE | 2020-01-26 17:33 | PC.NURSE ---
Addendum entered by Diana Amador RN 01/26/20 18:24: Oral care completed q2 hours prn for patient comfort. 2 iv's were discontinued. New 20g IV started in her left forearm. Original Note: Patient is resting comfortably in bed. Neurologically patient is oriented to name only. Will answer some questions with short answers but is unable to carry conversations. Pupils are equal. Cardiac alcantar patient has ranged from sinus tachycardia to sinus bradycardia and normal sinus throughout the day. While resting her heartrate ranges in the 50's. When agitated earlier in the shift patients heartrate was in the 110's. Respiratory alcantar patient is currently resting on the bipap. She has done well with the nasal cannula today and has been on 5l for several hours throughout the day. She will use the IS with steady instructions if the nurse holds the IS in front of her. Urine output is adequate. Skin issues include a stage 2 on her coccyx. New mepelix placed. Q2 hour turns. GI- patient did vomit this morning after taking her am medicines. IV zofran given prophylactically this afternoon prior to medication and lunch to prevent nausea with the bipap. Per md orders we will allow patient to rest on the bipap tonight and will reassess the oxygenation in am. Will continue to monitor.
[2020-01-27] VITALS (13 sets, daily range): BP systolic 117–176; BP diastolic 68–88; PULSE 59–116; RESP 19–32; TEMP 36.1–37.8; O2SAT 85–98; BMI 34.2
--- NOTE | 2020-01-27 05:01 | PC.NURSE ---
Pt has been pleasant and somewhat cooperative this shift. Pt has mostly wanted to be left alone and doesn't like to be turned/repositioned or given oral care. Pt is alert to person only. Pt has been using the BiPap for the entire shift thus far, with O2 sats. >90%. Lung sounds reveal inspiratory and expiratory rhonchi. Generalized, non-pitting edema noted to BUE. Reddened area noted to coccyx/buttocks and covered with Allevyn dressing. No BM this shift. F/C patent and draining clear, yellow urine at bedside to gravity. 20 G peripheral IV in the LT AC is patent and infusing LR @ 125 ML/HR. VSS. Call light within reach. Will continue to monitor.
[2020-01-27 05:34] LABS: Basophils # 0.1 K/mm3 (0-0.2); Eosinophils % 0.1 % (0.1-12.0); Hematocrit 36.9 % (37.0-47.0); Hemoglobin 10.7 g/dL (12.2-16.2); Lymphocytes # 2.5 K/mm3 (0.7-4.5); Lymphocytes % 41.1 % (10-50); Mean Corpuscular HGB Conc 29.1 g/dL (31.8-35.4); Mean Corpuscular Hemoglobin 26.8 pg (27.0-31.2); Mean Platelet Volume 7.8 fl (7.4-10.4); Monocytes # 0.6 K/mm3 (0.1-1.0); Monocytes % 10.3 % (1.7-9.3); Neutrophils # 2.9 K/mm3 (1.8-7.8); Neutrophils % 47.4 % (37.0-80.0); Platelet Count 254 K/mm3 (142-424); Red Blood Count 4.01 M/mm3 (4.20-5.40); Red Cell Distribution Width 17.4 % (11.5-17.5)
[2020-01-27 05:38] LABS: Chloride 116 mmol/L (98-107); Sodium 145 mmol/L (136-145)
[2020-01-27 05:40] LABS: Blood Urea Nitrogen 29 mg/dl (7-17); Creatinine Clearance Estimated 60 mL/min (50-200); Estimated Glomerular Filt Rate 60 ml/min (>60); GFR (African American) 73 ML/MIN (>60)
[2020-01-27 05:41] LABS: Alanine Aminotransferase 21 U/L (12-78); Albumin Level 3.1 g/dl (3.5-5.0); Albumin/Globulin Ratio 0.9 (1.1-1.8); Alkaline Phosphatase 202 U/L (38-126); Aspartate Amino Transferase 47 U/L (14-36); Bilirubin,Total 0.3 mg/dl (0.2-1.3); Carbon Dioxide 25 mmol/L (22.0-30.0); Globulin 3.6 g/dL (1.3-3.2); Glucose 97 mg/dl (74-100); Total Protein,Serum 6.7 g/dl (6.3-8.2)
[2020-01-27 05:42] LABS: Calcium 8.2 mg/dl (8.4-10.2)
--- NOTE | 2020-01-27 07:03 | XR_ITS ---
PROCEDURE: XR CHEST PORTABLE CLINICAL HISTORY: f/u icu exam Pneumonia follow-up COMPARISON: CR CXR2 XR chest AP from 07/23/2017 CR XR CHEST PORTABLE from 01/24/2020 CR XR CHEST PORTABLE from 01/26/2020 FINDINGS: Unremarkable heart size. Persistent consolidation is present in the right lower lobe consistent with pneumonia probably unchanged. Patchy atelectasis or infiltrate also noted in the left lower lobe unchanged. No acute bony abnormalities. IMPRESSION: No change right lower lobe pneumonia and left lower lobe pneumonia or atelectatic change Dictated by: Zohaib Spain MD 01/27/2020 07:07 Zohaib Spain MD in OV 01/27/2020 07:07
--- NOTE | 2020-01-27 08:08 | HMH.ACPN2 ---
Internal Medicine - PN: Subj *Date: 01/27/20 *Time: 09:02 Interval history: ICU progress note: Patient remains on BiPAP overnight. Tolerated nasal cannula oxygen yesterday for several hours. Remains conversant, alert. Doing better with p.o. intake, tolerating small amounts. Reviewed labs this morning, improvement in kidney dysfunction and electrolytes. Denies chest pain, nausea, confusion, abdominal pain. Exam Vital signs and Labs for Last 24 Hours: Temp Pulse Resp BP Pulse Ox 99.6 F 59 L 20 153/81 H 94 L 01/27/20 07:55 01/27/20 07:55 01/27/20 07:55 01/27/20 07:55 01/27/20 07:55 Laboratory Results - last 24 hr 01/27/20 04:30: Sodium 145, Potassium 4.0, Chloride 116 H, Carbon Dioxide 25, Anion Gap 8.0, BUN 29 H, Creatinine 0.90, Estimated Creat Clear 60, Estimated GFR 60, Est GFR ( Amer) 73 D, Glucose 97, Calcium 8.2 L, Total Bilirubin 0.3, AST 47 H D, ALT 21 D, Alkaline Phosphatase 202 H, Total Protein 6.7, Albumin 3.1 L, Globulin 3.6 H, Albumin/Globulin Ratio 0.9 L 01/27/20 04:30: Vancomycin Trough 9.0 01/27/20 04:30: WBC 6.0, RBC 4.01 L, Hgb 10.7 L, Hct 36.9 L, MCV 92.0, MCH 26.8 L, MCHC 29.1 L, RDW 17.4, Plt Count 254, MPV 7.8, Neut % (Auto) 47.4, Lymph % (Auto) 41.1, [place] % (Auto) 10.3 H, Eos % (Auto) 0.1, Baso % (Auto) 1.0, Neut # (Auto) 2.9, Lymph # (Auto) 2.5, [place] # (Auto) 0.6, Eos # (Auto) 0.0, Baso # (Auto) 0.1 I & O for Last 24 hours: Intake & Output 01/24/20 01/25/20 01/26/20 01/27/20 23:59 23:59 23:59 23:59 Intake Total 3134 / 3134 360 / 360 1233 / 1233 Output Total 100 / 100 1150 / 1150 800 / 800 250 / 250 Balance -100 / -100 1983 / 1983 -440 / -440 983 / 983 Weight 81.448 kg 85 kg 84.368 kg 84.482 kg Microbiology Reports for the Last 24 Hours: Microbiology 01/24/20 14:50 Urine,Catheterized Urine Culture - Final NO GROWTH AFTER 48 HOURS 01/24/20 14:50 Blood Blood Culture - Preliminary NO GROWTH AFTER 48 HOURS 01/24/20 14:50 Blood Blood Culture - Preliminary NO GROWTH AFTER 48 HOURS - Constitutional mild distress, obese - *Routine HEENT Exam Head: Present: normocephalic Eye: Present: EOMI, PERRL ENT: Present: mucous membranes moist - *Routine Neck Exam Present: supple. Absent: lymphadenopathy - *Routine Respiratory Exam Present: decreased breath sounds, crackles, distant breath sounds - *Routine Cardiovascular Exam Present: RRR (Bilateral bases) - *Routine Abdominal Exam Present: soft, normoactive bowel sounds. Absent: tenderness Assessment and Plan (1) Acute and chronic respiratory failure with hypoxia Status: Acute Category: Medical Code(s): J96.21 - Acute and chronic respiratory failure with hypoxia (2) COVID-19 Status: Acute Category: Medical Code(s): U07.1 - COVID-19 (3) Pneumonia Status: Acute Category: Medical Code(s): J18.9 - Pneumonia, unspecified organism (4) Acute exacerbation of chronic obstructive airways disease Status: Acute Category: Medical Code(s): J44.1 - Chronic obstructive pulmonary disease with (acute) exacerbation (5) Acute kidney injury Status: Acute Category: Medical Code(s): N17.9 - Acute kidney failure, unspecified Presented with creatinine greater than 1.4. Improving during admission with fluid resuscitation. Continue to monitor daily. Creatinine is normalized today, caution with nephrotoxic's. (6) Obesity (BMI 30.0-34.9) Status: Chronic Category: Medical Code(s): E66.9 - Obesity, unspecified Complicates all aspects of her care (7) Functional quadriplegia Status: Chronic Category: Medical Code(s): R53.2 - Functional quadriplegia Secondary to RA - Assessment and plan all Dx Assessment and Plan for all problems:: Significant oxygen impairment remains. Continue BiPAP. We will try to enhance nutrition as best we can with protein shakes and protein powder adde
--- NOTE | 2020-01-27 09:10 | HMH.PHACONS ---
- Pharmacy Consult Date: 01/27/20 Time: 09:10 Referring provider: DR. SORIANO Reason for Consult:: VANCOMYCIN TROUGH LEVEL Allergies and ADEs:: Allergies Allergy/AdvReac Type Severity Reaction Status Date / Time No Known Allergies Allergy Unverified 01/25/20 08:09 Home Medications:: Home Medications Medication Instructions Recorded Confirmed Type Acetaminophen [Tylenol 500mg 500 mg PO BID 01/24/20 01/24/20 History tablet] Ascorbic Acid [Vitamin C] 500 mg PO DAILY 01/24/20 01/24/20 History Aspirin [Aspirin 81mg EC Tab] 81 mg PO DAILY 01/24/20 01/24/20 History Azithromycin [Zithromax 250mg 250 mg PO DIRECTED 01/24/20 01/24/20 History tab] Cefdinir [Omnicef 300mg Capsule] 300 mg PO BID 01/24/20 01/24/20 History Celecoxib [CeleBREX 100mg Capsule] 100 mg PO BID 01/24/20 01/24/20 History Cholecalciferol (Vitamin D3) 2 tab PO DAILY 01/24/20 01/24/20 History [Vitamin D3 1,000 Unit Cap] Eslicarbazepine Acetate [Aptiom] 600 mg PO DAILY 01/24/20 01/24/20 History Fluticasone/Vilanterol [Breo 1 inh IH DAILY 01/24/20 01/24/20 History Ellipta 100-25 Mcg INH] Furosemide [Furosemide 40MG tAB*] 40 mg PO DAILY 01/24/20 01/24/20 History Ipratropium/Albuterol Sulfate 3 ml IH Q4H 01/24/20 01/24/20 History [Duoneb 3mL neb] Omeprazole Magnesium [Prilosec Otc 20 mg PO HS 01/24/20 01/25/20 History 20mg Tab] Tramadol HCl [Tramadol 50mg 50 mg PO Q6HP PRN 01/24/20 01/24/20 History Tab] Zinc Gluconate [Zinc] 50 mg PO BID 01/24/20 01/24/20 History dexAMETHasone [Dexamethasone] 4 mg PO BID 01/24/20 01/24/20 History Acetaminophen 500 mg PO Q6HP PRN 01/25/20 01/25/20 History Albuterol Sulfate [Albuterol 2 puffs IH QID 01/25/20 01/25/20 History Sulfate Hfa] Fluoxetine HCl 10 mg PO Q48H 01/25/20 01/25/20 History Height: 1.57 m Weight: 84.482 kg Laboratory Results:: Laboratory Results - last 24 hr 01/27/20 04:30: Sodium 145, Potassium 4.0, Chloride 116 H, Carbon Dioxide 25, Anion Gap 8.0, BUN 29 H, Creatinine 0.90, Estimated Creat Clear 60, Estimated GFR 60, Est GFR ( Amer) 73 D, Glucose 97, Calcium 8.2 L, Total Bilirubin 0.3, AST 47 H D, ALT 21 D, Alkaline Phosphatase 202 H, Total Protein 6.7, Albumin 3.1 L, Globulin 3.6 H, Albumin/Globulin Ratio 0.9 L 01/27/20 04:30: Vancomycin Trough 9.0 01/27/20 04:30: WBC 6.0, RBC 4.01 L, Hgb 10.7 L, Hct 36.9 L, MCV 92.0, MCH 26.8 L, MCHC 29.1 L, RDW 17.4, Plt Count 254, MPV 7.8, Neut % (Auto) 47.4, Lymph % (Auto) 41.1, [place] % (Auto) 10.3 H, Eos % (Auto) 0.1, Baso % (Auto) 1.0, Neut # (Auto) 2.9, Lymph # (Auto) 2.5, [place] # (Auto) 0.6, Eos # (Auto) 0.0, Baso # (Auto) 0.1 Medical History: Reports:: Congestive Heart Failure (Systolic and diastolic dysfunction), Chronic Obstructive Pulmonary Disease (COPD), Home Oxygen, Hyperlipidemia, Hypertension, Renal Disease, Renal Insufficiency (Stage III chronic kidney disease) Denies:: Diabetes Mellitus Type 1, Diabetes Mellitus Type 2 Assessment and Plan (1) Acute and chronic respiratory failure with hypoxia Status: Acute Category: Medical Code(s): J96.21 - Acute and chronic respiratory failure with hypoxia (2) COVID-19 Status: Acute Category: Medical Code(s): U07.1 - COVID-19 (3) Pneumonia Status: Acute Category: Medical Code(s): J18.9 - Pneumonia, unspecified organism (4) Acute exacerbation of chronic obstructive airways disease Status: Acute Category: Medical Code(s): J44.1 - Chronic obstructive pulmonary disease with (acute) exacerbation (5) Acute kidney injury Status: Acute Category: Medical Code(s): N17.9 - Acute kidney failure, unspecified (6) Obesity (BMI 30.0-34.9) Status: Chronic Category: Medical Code(s): E66.9 - Obesity, unspecified (7) Functional quadriplegia Status: Chronic Category: Medical Code(s): R53.2 - Functional quadriplegia - Assessment and plan all Dx Assessment and Plan for all problems:: BASED ON PATIENT FACTORS AND VANCOMYCIN
--- NOTE | 2020-01-27 10:10 | PC.NURSE ---
MAURICE collected Sputum on Patient. Sample carried to lab, handed specimen handed to
--- NOTE | 2020-01-27 10:15 | PC.NURSE ---
RT placed pt on bipap due to pt desat
[2020-01-27 11:53] LABS: ABG HCO3 21.2 mmhg (22.0-26.0); ABG Oxygen Saturation 92 % (90-100); ABG PCO2 42.7 mmhg (35.0-45.0); ABG PH 7.31 mmol/L (7.35-7.45); ABG PO2 64.8 mmhg (80-100); ABG TCO2 22.5 mmhg (23-27)
[2020-01-27 11:54] LABS: Allen's Test Patient Unable; Oxygen 100 %; Source Left Radial
--- NOTE | 2020-01-27 12:42 | P.PN_ITS ---
Internal Medicine - PN: Subj *Date: 01/27/20 *Time: 12:42 Exam Vital signs and Labs for Last 24 Hours: Temp Pulse Resp BP Pulse Ox 100.1 F H 116 H 22 138/68 85 L 01/27/20 11:43 01/27/20 11:43 01/27/20 11:43 01/27/20 11:43 01/27/20 11:43 Laboratory Results - last 24 hr 01/27/20 04:30: Sodium 145, Potassium 4.0, Chloride 116 H, Carbon Dioxide 25, Anion Gap 8.0, BUN 29 H, Creatinine 0.90, Estimated Creat Clear 60, Estimated GFR 60, Est GFR ( Amer) 73 D, Glucose 97, Calcium 8.2 L, Total Bilirubin 0.3, AST 47 H D, ALT 21 D, Alkaline Phosphatase 202 H, Total Protein 6.7, Albumin 3.1 L, Globulin 3.6 H, Albumin/Globulin Ratio 0.9 L 01/27/20 04:30: Vancomycin Trough 9.0 01/27/20 04:30: WBC 6.0, RBC 4.01 L, Hgb 10.7 L, Hct 36.9 L, MCV 92.0, MCH 26.8 L, MCHC 29.1 L, RDW 17.4, Plt Count 254, MPV 7.8, Neut % (Auto) 47.4, Lymph % (Auto) 41.1, [place] % (Auto) 10.3 H, Eos % (Auto) 0.1, Baso % (Auto) 1.0, Neut # (Auto) 2.9, Lymph # (Auto) 2.5, [place] # (Auto) 0.6, Eos # (Auto) 0.0, Baso # (Auto) 0.1 01/27/20 11:45: Specimen Source Left radial, O2 % 100, ABG pH 7.31 L, ABG pCO2 42.7, ABG pO2 64.8 L, ABG HCO3 21.2 L, ABG Total CO2 22.5 L, ABG O2 Saturation 92, ABG Base Excess -5.0 L, Zohaib Test Patient unable I & O for Last 24 hours: Intake & Output 01/24/20 01/25/20 01/26/20 01/27/20 23:59 23:59 23:59 23:59 Intake Total 3134 / 3134 360 / 360 1473 / 1473 Output Total 100 / 100 1150 / 1150 800 / 800 250 / 250 Balance -100 / -100 1983 -440 / -440 1223 / 1223 Weight 81.448 kg 85 kg 84.368 kg 84.482 kg Microbiology Reports for the Last 24 Hours: Microbiology 01/27/20 10:10 Sputum - Expectorated Sputum Gram Stain - Final 01/24/20 14:50 Urine,Catheterized Urine Culture - Final NO GROWTH AFTER 48 HOURS 01/24/20 14:50 Blood Blood Culture - Preliminary NO GROWTH AFTER 48 HOURS 01/24/20 14:50 Blood Blood Culture - Preliminary NO GROWTH AFTER 48 HOURS Assessment and Plan (1) Acute and chronic respiratory failure with hypoxia Status: Acute Category: Medical Code(s): J96.21 - Acute and chronic respiratory failure with hypoxia (2) COVID-19 Status: Acute Category: Medical Code(s): U07.1 - COVID-19 (3) Pneumonia Status: Acute Category: Medical Code(s): J18.9 - Pneumonia, unspecified organism (4) Acute exacerbation of chronic obstructive airways disease Status: Acute Category: Medical Code(s): J44.1 - Chronic obstructive pulmonary disease with (acute) exacerbation (5) Acute kidney injury Status: Acute Category: Medical Code(s): N17.9 - Acute kidney failure, unspecified (6) Obesity (BMI 30.0-34.9) Status: Chronic Category: Medical Code(s): E66.9 - Obesity, unspecified (7) Functional quadriplegia Status: Chronic Category: Medical Code(s): R53.2 - Functional quadriplegia The patient's infection will respond to the chosen ABx?: Yes Is the patient receiving the right drug, dose, and route?: Yes Could a more targeted ABx be ordered?: No (AWAITING CULTURES)
--- NOTE | 2020-01-27 13:16 | PC.NURSE ---
DR. ANTHONY WAS CALLED BY NIKUNJ STOKES, RN TO COME EXAMINE PATIENT. THIS RN WAS GIVEN A MESSAGE FROM RICARDO BERMUDEZ THAT MICHAEL HAD PHONED FROM MD OFFICE, PER DR. ANTHONY, PLACE PATIENT ON BIPAP AND IF PATIENT BEGINS TO DESAT, CALL A RAPID. NO OTHER CONCERNS AT THIS TIME.
--- NOTE | 2020-01-27 16:02 | PC.NURSE ---
PATIENT HAD 1,000ML OUTPUT FROM [facility]. PATIENT IS LETHARGIC, THIS RN NOTIFIED MD, ABG ORDERED. UNABLE TO ADMINISTER PO MEDICATIONS AT THIS TIME. ABG RESULTS REPORTED TO MD. NO NEW ORDERS. LUNG SOUNDS: DIMINISHED THROUGHOUT, PULSES EQUAL, NON PITTING +1 EDEMA NOTE ON BLE. NO NEW CONCERNS AT THIS TIME.
[2020-01-27 16:09] LABS: ABG Base Excess -4.1 mmol/L (-2.4-2.3); ABG HCO3 21.5 mmhg (22.0-26.0); ABG Oxygen Saturation 97 % (90-100); ABG PCO2 39.5 mmhg (35.0-45.0); ABG PH 7.35 mmol/L (7.35-7.45); ABG TCO2 22.7 mmhg (23-27); Oxygen 100 %; Source Left Radial
[2020-01-27 16:10] LABS: Allen's Test Patient Unable
--- NOTE | 2020-01-27 20:09 | PC.NURSE ---
She is alert to self. Pocketing noted of night meds. Meds were then crushed and given. She continues in seizure precautions and contact and airborne precautions. She is a total assist with turning and repositioning. Oral care provided. Redness noted to right side of nose and DSG is in place on the bridge of her nose and coccyx. Mouth is reddened and dry. Oral care provided. F/c patent and drainage yellow, cloudy urine.
[2020-01-28] VITALS (17 sets, daily range): BP systolic 130–200; BP diastolic 70–100; PULSE 58–115; RESP 20–26; TEMP 36.3–38.1; O2SAT 93–97; BMI 34.2
--- NOTE | 2020-01-28 04:03 | PC.NURSE ---
Increasing work of breathing noted and her face is reddened. HOB elevated. Respiratory paged and she is being given a PRN breathing tx and placed farrah on bipap. She had previously been weaned to 50% venti and her O2 sats remained in mid to higher 90s until now. Her sats are between 88-90%. Large thick, white sputum suctioned orally.
[2020-01-28 05:24] LABS: Chloride 116 mmol/L (98-107)
[2020-01-28 05:25] LABS: Potassium 3.7 mmoL/L (3.5-5.1); Sodium 147 mmol/L (136-145)
[2020-01-28 05:27] LABS: Alanine Aminotransferase 31 U/L (12-78); Alkaline Phosphatase 217 U/L (38-126); Aspartate Amino Transferase 52 U/L (14-36); Bilirubin,Total 0.4 mg/dl (0.2-1.3); Blood Urea Nitrogen 28 mg/dl (7-17); Creatinine Clearance Estimated 60 mL/min (50-200); Estimated Glomerular Filt Rate 53 ml/min (>60); GFR (African American) 65 ML/MIN (>60)
[2020-01-28 05:28] LABS: Albumin Level 3.2 g/dl (3.5-5.0); Albumin/Globulin Ratio 0.8 (1.1-1.8); Anion Gap 11.7 mEq/L (5-15); Calcium 8.3 mg/dl (8.4-10.2); Carbon Dioxide 23 mmol/L (22.0-30.0); Globulin 3.8 g/dL (1.3-3.2); Glucose 145 mg/dl (74-100); Magnesium 1.8 mg/dl (1.6-2.3)
[2020-01-28 05:50] LABS: Basophils % 0.7 % (0.1-2.0); Eosinophils % 0.1 % (0.1-12.0); Hematocrit 36.5 % (37.0-47.0); Hemoglobin 11.4 g/dL (12.2-16.2); Lymphocytes # 2.2 K/mm3 (0.7-4.5); Lymphocytes % 38.3 % (10-50); Mean Corpuscular HGB Conc 31.2 g/dL (31.8-35.4); Mean Corpuscular Hemoglobin 28.3 pg (27.0-31.2); Mean Corpuscular Volume 90.9 fl (81-99); Mean Platelet Volume 8.9 fl (7.4-10.4); Monocytes # 0.6 K/mm3 (0.1-1.0); Monocytes % 11.1 % (1.7-9.3); Neutrophils # 2.8 K/mm3 (1.8-7.8); Neutrophils % 49.9 % (37.0-80.0); Platelet Count 321 K/mm3 (142-424); Red Blood Count 4.01 M/mm3 (4.20-5.40); Red Cell Distribution Width 17.9 % (11.5-17.5); White Blood Count 5.7 K/mm3 (4.8-10.8)
--- NOTE | 2020-01-28 08:34 | HMH.ACPN2 ---
Internal Medicine - PN: Subj *Date: 01/28/20 *Time: 08:34 Interval history: Overnight patient had some problems pocketing some food, now n.p.o. with speech therapy consult pending. Remains on BiPAP in the intensive care unit. Exam Vital signs and Labs for Last 24 Hours: Temp Pulse Resp BP Pulse Ox 98.8 F 65 26 H 185/70 H 97 01/28/20 04:00 01/28/20 06:27 01/28/20 04:00 01/28/20 04:00 01/28/20 04:00 Laboratory Results - last 24 hr 01/27/20 11:45: Specimen Source Left radial, O2 % 100, ABG pH 7.31 L, ABG pCO2 42.7, ABG pO2 64.8 L, ABG HCO3 21.2 L, ABG Total CO2 22.5 L, ABG O2 Saturation 92, ABG Base Excess -5.0 L, Zohaib Test Patient unable 01/27/20 15:59: Specimen Source Left radial, O2 % 100, ABG pH 7.35, ABG pCO2 39.5, ABG pO2 93.0, ABG HCO3 21.5 L, ABG Total CO2 22.7 L, ABG O2 Saturation 97, ABG Base Excess -4.1 L, Zohaib Test Patient unable 01/28/20 04:30: Sodium 147 H, Potassium 3.7, Chloride 116 H, Carbon Dioxide 23, Anion Gap 11.7, BUN 28 H, Creatinine 1.00, Estimated Creat Clear 60, Estimated GFR 53 L, Est GFR ( Amer) 65, Glucose 145 H D, Calcium 8.3 L, Total Bilirubin 0.4, AST 52 H, ALT 31 D, Alkaline Phosphatase 217 H, Total Protein 7.0, Albumin 3.2 L, Globulin 3.8 H, Albumin/Globulin Ratio 0.8 L 01/28/20 04:30: WBC 5.7, RBC 4.01 L, Hgb 11.4 L, Hct 36.5 L, MCV 90.9, MCH 28.3, MCHC 31.2 L, RDW 17.9 H, Plt Count 321 D, MPV 8.9, Neut % (Auto) 49.9, Lymph % (Auto) 38.3, [place] % (Auto) 11.1 H, Eos % (Auto) 0.1, Baso % (Auto) 0.7, Neut # (Auto) 2.8, Lymph # (Auto) 2.2, [place] # (Auto) 0.6, Eos # (Auto) 0.0, Baso # (Auto) 0.0 01/28/20 04:30: Magnesium 1.8 I & O for Last 24 hours: Intake & Output 01/25/20 01/26/20 01/27/20 01/28/20 11:59 11:59 11:59 11:59 Intake Total 1974 / 2214 1220 / 1220 1773 / 1773 180 / 180 Output Total 400 / 400 1150 / 1150 750 / 750 1900 / 1900 Balance 1574 / 1814 70 / 70 1023 / 1023 -1720 / -1720 Weight 187 lb 6.287 oz 186 lb 186 lb 4 oz 186 lb 5 oz Microbiology Reports for the Last 24 Hours: Microbiology 01/27/20 10:10 Sputum - Expectorated Sputum Gram Stain - Final Narrative: Blood pressure elevation noted. Awakens fairly easily, is responsive to commands and verbal stimuli, able to answer questions. Some tremors in her hands. At baseline for her previous preadmission status. Lots of rhonchi and crackles in both lung bustos but fairly good air excursion. Heart rate regular. Abdomen soft. No changes in extremity exam. ENT exam is unchanged Assessment and Plan (1) Acute and chronic respiratory failure with hypoxia Status: Acute Category: Medical Code(s): J96.21 - Acute and chronic respiratory failure with hypoxia (2) COVID-19 Status: Acute Category: Medical Code(s): U07.1 - COVID-19 (3) Pneumonia Status: Acute Category: Medical Code(s): J18.9 - Pneumonia, unspecified organism (4) Acute exacerbation of chronic obstructive airways disease Status: Acute Category: Medical Code(s): J44.1 - Chronic obstructive pulmonary disease with (acute) exacerbation (5) Acute kidney injury Status: Acute Category: Medical Code(s): N17.9 - Acute kidney failure, unspecified (6) Obesity (BMI 30.0-34.9) Status: Chronic Category: Medical Code(s): E66.9 - Obesity, unspecified (7) Functional quadriplegia Status: Chronic Category: Medical Code(s): R53.2 - Functional quadriplegia - Assessment and plan all Dx Assessment and Plan for all problems:: Continue BiPAP support. Amlodipine for high blood pressure. If unable to swallow we will do intravenous labetalol. Echocardiogram reviewed, chest x-ray reviewed. Labs reviewed showing stability/improvement in kidney issues. Continue oxygen and BiPAP support. 1 hour critical care time including record and image review
--- NOTE | 2020-01-28 09:09 | PC.NURSE ---
attempted patient po medications crushed in applesauce. patient coughed when given the medications, and spit them out . lots of mucus in mouth requiring suctioning, oral care provided. would not swallow applesauce.
--- NOTE | 2020-01-28 10:56 | PC.NURSE ---
speech here to assess patient swallowing. removed patient from bipap to 50% venti mask and is sating 93-94% will monitor
--- NOTE | 2020-01-28 11:13 | PC.NURSE ---
recheck of bp was just over a systolic of 160 whic is down from previous check.... will do another recheck and if systolic remains high will give a dose of labetalol
--- NOTE | 2020-01-28 11:32 | HMH.SLDYSPHA ---
Speech & Language Evaluation Speech/Language Dysphagia Evaluation Start: 01/28/20 11:16 Freq: ONCE Status: Active Protocol: Document 01/28/20 11:16 JOON (Rec: 01/28/20 11:32 JOON [id number]) Dysphagia Assess/Goals/Plan Assessment Date of Evaluation: 01/28/20 Evaluation Type Initial Certification Assessment/Problems Dysphagia Does Patient Qualify for Service No Qualify/Failure Comment Patient cannot withstand therapy at this time due to decrease respiratory status. Recommendations PHYSICIAN CERTIFICATION: The specified therapy services are required, authorized, and reviewed every 30 days. Diet Recommendations Pureed Liquid Type Recommendations [place] Consistency SL Swallow Guidelines Assist w/all meals,High aspiration risk,Crush meds as allowed*,Liquids given* Crush Meds Crush all meds Dysphagia Swallow Precautions/Strategies Liquids from Straw,Small Bites and Sips,Alternate Liquids/ Solids Plan Pt/Guardian verbally ack understanding No: RN and CM notified of dx/prognosis/goals G -code Required No General Information General Current Food Consistancy NPO Dentition Edentulous Oxygen Status Venturi Mask Facial Symmetry Symmetrical Patient Orientation Person Ability to Follow Directions Fair Communication Ability Mild Impairment Dysphagia:Food Presentation Evaluation Food Type Pureed,Liquid,Pudding Normal/Thin Liquid Response Coughing after swallow,Wet voice Dysphagia Evaluation Mechanical Soft Pushed out of mouth Food Behavior Response Dysphagia Evaluation Summary Ms. Brown was given the following consistencies: thins via straw, nectar via straw, pudding, pureed, and mechanical soft. Ms. Brown experienced wet vocal quality and cough after swallow with thin liquids. She pushed out mechanical soft consistency and refused to attempt to try it. At this time, it is recommended that she be placed on pureed diet with nectar thick liquids. She will be monitored for possible diet upgrades as respiratory status and alertness/
--- NOTE | 2020-01-28 12:21 | PC.NURSE ---
RN aware of elevated respirations, BP and temp.
--- NOTE | 2020-01-28 14:36 | DIET.NUTRFU ---
Pt with poor intakes (0-25%) and pocketing food. Diet altered to puree consistency with nectar thick liquids per speech. Protein supplementation altered to include 2 protein fortified foods plus Breeze energy/protein supplements all meals. Breeze offers same protein/energy with less sodium and may be more palatable as nectar thick than shakes. No Na restriction at this time dt low intakes, continuing to monitor and alter as indicated. 7# weight gain since admit.
--- NOTE | 2020-01-28 18:47 | PC.NURSE ---
Addendum entered by Alphonso Brooks RN 01/28/20 19:04: remains Original Note: Since taking care at 1300 approx pt has been alert to self. Fluids infusing per mar without problems. CB in reach. NAD, remains on bipap at this time, have had to adjust several times.Pt is total care. Dsg remians cdi on coccyx and bridge of nose. Logan in place, pt did spit out vit c when attempted to give po in chocolate pudding earlier this shift. Remains safe with seizure pads in place. Last bp 130/90 manually.
[2020-01-29] VITALS (23 sets, daily range): BP systolic 102–191; BP diastolic 52–97; PULSE 52–95; RESP 20–30; TEMP 36.7–37.6; O2SAT 90–95; BMI 34.4
--- NOTE | 2020-01-29 05:40 | PC.NURSE ---
Pt is A&O x1 to person and slept well most of the night. Pt has been turned q2 throughout the shift and tolerated well. Pt would not swallow meds that were crushed and put into pudding after several attempts. Upon auscultation lungs were diminished with crackles present in the lower lobes. Pt had expiratory wheezing for which a duoneb was administered, per APR, and improved wheezing. AT the start of shift pt was on bipap and switch over to venti mask at 15L. Sats have been 90-92 throughout shift, pt WOB was equal to that on bipap. Pt noted to have a persistent wet cough. Abd soft, nontender with bowel sounds in all 4 quadrants, +1 nonpitting edema noted to BLE. Logan cath has had adequate output. Pt was hypertensive at 0000 vitals and was administered labetalol per mar. VSS, call light in reach, no concerns at this time.
[2020-01-29 06:34] LABS: Chloride 119 mmol/L (98-107); Potassium 3.6 mmoL/L (3.5-5.1)
[2020-01-29 06:37] LABS: Anion Gap 12.6 mEq/L (5-15); Blood Urea Nitrogen 32 mg/dl (7-17); Calcium 8.3 mg/dl (8.4-10.2); Carbon Dioxide 22 mmol/L (22.0-30.0); Creatinine Clearance Estimated 60 mL/min (50-200); Estimated Glomerular Filt Rate 60 ml/min (>60); GFR (African American) 73 ML/MIN (>60); Glucose 104 mg/dl (74-100)
[2020-01-29 06:39] LABS: Sodium 150 mmol/L (136-145)
[2020-01-29 06:48] LABS: Basophils # 0.1 K/mm3 (0-0.2); Basophils % 0.8 % (0.1-2.0); Eosinophils % 0.3 % (0.1-12.0); Hematocrit 36.8 % (37.0-47.0); Hemoglobin 11.2 g/dL (12.2-16.2); Lymphocytes # 1.3 K/mm3 (0.7-4.5); Lymphocytes % 21.9 % (10-50); Mean Corpuscular HGB Conc 30.4 g/dL (31.8-35.4); Mean Corpuscular Hemoglobin 27.8 pg (27.0-31.2); Mean Corpuscular Volume 91.5 fl (81-99); Monocytes # 0.6 K/mm3 (0.1-1.0); Monocytes % 10.2 % (1.7-9.3); Neutrophils % 66.8 % (37.0-80.0); Platelet Count 328 K/mm3 (142-424); Red Blood Count 4.02 M/mm3 (4.20-5.40); Red Cell Distribution Width 17.8 % (11.5-17.5)
[2020-01-29 07:36] LABS: Vancomycin,Trough 16.6 ug/mL (5.0-10.0)
--- NOTE | 2020-01-29 07:52 | PC.NURSE ---
Critical Sodium of [address] Krishna, no new orders at this time.
--- NOTE | 2020-01-29 08:21 | HMH.ACPN2 ---
Internal Medicine - PN: Subj *Date: 01/29/20 *Time: 08:21 Interval history: Patient with elevated systolic blood pressure yesterday, labetalol was started because patient has been spitting out her pills because of some anxiety issues and disorientation. However, patient's oxygenation status has slightly improved, has been able to tolerate Ventimask overnight instead of BiPAP. This morning she is awake and recognizes me. Exam Vital signs and Labs for Last 24 Hours: Temp Pulse Resp BP Pulse Ox 99.0 F 69 30 H 177/97 H 93 L 01/29/20 04:00 01/29/20 04:00 01/29/20 04:00 01/29/20 04:40 01/29/20 04:00 Laboratory Results - last 24 hr 01/29/20 05:20: Vancomycin Trough 16.6 H 01/29/20 05:20: WBC 6.0, RBC 4.02 L, Hgb 11.2 L, Hct 36.8 L, MCV 91.5, MCH 27.8, MCHC 30.4 L, RDW 17.8 H, Plt Count 328, MPV 9.0, Neut % (Auto) 66.8, Lymph % (Auto) 21.9, [place] % (Auto) 10.2 H, Eos % (Auto) 0.3, Baso % (Auto) 0.8, Neut # (Auto) 4.0, Lymph # (Auto) 1.3, [place] # (Auto) 0.6, Eos # (Auto) 0.0, Baso # (Auto) 0.1 01/29/20 05:20: Sodium 150 H, Potassium 3.6, Chloride 119 H, Carbon Dioxide 22, Anion Gap 12.6, BUN 32 H, Creatinine 0.90, Estimated Creat Clear 60, Estimated GFR 60, Est GFR ( Amer) 73, Glucose 104 H, Calcium 8.3 L I & O for Last 24 hours: Intake & Output 01/26/20 01/27/20 01/28/20 01/29/20 11:59 11:59 11:59 11:59 Intake Total 1220 / 1220 1773 / 1773 180 / 180 0 / 0 Output Total 1150 / 1150 750 / 750 1900 / 1900 525 / 525 Balance 70 / 70 1023 / 1023 -1720 / -1720 -525 / -525 Weight 186 lb 186 lb 4 oz 186 lb 5 oz 187 lb 3.2 oz Microbiology Reports for the Last 24 Hours: Microbiology 01/27/20 10:10 Sputum - Expectorated Sputum Gram Stain - Final 01/27/20 10:10 Sputum - Expectorated Sputum Sputum Culture - Preliminary Narrative: Patient is sleeping. O2 saturations 94% on high flow oxygen mask. Oropharynx clear. No JVD, neck supple. Lungs have rhonchi bilaterally but symmetric air entry. Abdomen soft and nontender. Heart rate regular. Distal pulses well-perfused. Neurologic exam unchanged. No skin rash. No changes in deformity joints. Assessment and Plan (1) Acute and chronic respiratory failure with hypoxia Status: Acute Category: Medical Code(s): J96.21 - Acute and chronic respiratory failure with hypoxia (2) COVID-19 Status: Acute Category: Medical Code(s): U07.1 - COVID-19 (3) Pneumonia Status: Acute Category: Medical Code(s): J18.9 - Pneumonia, unspecified organism (4) Acute exacerbation of chronic obstructive airways disease Status: Acute Category: Medical Code(s): J44.1 - Chronic obstructive pulmonary disease with (acute) exacerbation (5) Acute kidney injury Status: Acute Category: Medical Code(s): N17.9 - Acute kidney failure, unspecified (6) Obesity (BMI 30.0-34.9) Status: Chronic Category: Medical Code(s): E66.9 - Obesity, unspecified (7) Functional quadriplegia Status: Chronic Category: Medical Code(s): R53.2 - Functional quadriplegia - Assessment and plan all Dx Assessment and Plan for all problems:: Slightly improved. Sodium levels increased. We will initiate low-dose IV fluids and follow this tomorrow. Recheck chest x-ray tomorrow morning. Continue oxygen support, hopefully she can wean down off of BiPAP support. Please note 1 hour critical care time
--- NOTE | 2020-01-29 08:30 | HMH.PHACONS ---
- Pharmacy Consult Date: 01/29/20 Time: 08:30 Referring provider: DR. SORIANO Reason for Consult:: VANCOMYCIN LEVEL Allergies and ADEs:: Allergies Allergy/AdvReac Type Severity Reaction Status Date / Time No Known Allergies Allergy Unverified 01/25/20 08:09 Home Medications:: Home Medications Medication Instructions Recorded Confirmed Type Acetaminophen [Tylenol 500mg 500 mg PO BID 01/24/20 01/24/20 History tablet] Ascorbic Acid [Vitamin C] 500 mg PO DAILY 01/24/20 01/24/20 History Aspirin [Aspirin 81mg EC Tab] 81 mg PO DAILY 01/24/20 01/24/20 History Azithromycin [Zithromax 250mg 250 mg PO DIRECTED 01/24/20 01/24/20 History tab] Cefdinir [Omnicef 300mg Capsule] 300 mg PO BID 01/24/20 01/24/20 History Celecoxib [CeleBREX 100mg Capsule] 100 mg PO BID 01/24/20 01/24/20 History Cholecalciferol (Vitamin D3) 2 tab PO DAILY 01/24/20 01/24/20 History [Vitamin D3 1,000 Unit Cap] Eslicarbazepine Acetate [Aptiom] 600 mg PO DAILY 01/24/20 01/24/20 History Fluticasone/Vilanterol [Breo 1 inh IH DAILY 01/24/20 01/24/20 History Ellipta 100-25 Mcg INH] Furosemide [Furosemide 40MG tAB*] 40 mg PO DAILY 01/24/20 01/24/20 History Ipratropium/Albuterol Sulfate 3 ml IH Q4H 01/24/20 01/24/20 History [Duoneb 3mL neb] Omeprazole Magnesium [Prilosec Otc 20 mg PO HS 01/24/20 01/25/20 History 20mg Tab] Tramadol HCl [Tramadol 50mg 50 mg PO Q6HP PRN 01/24/20 01/24/20 History Tab] Zinc Gluconate [Zinc] 50 mg PO BID 01/24/20 01/24/20 History dexAMETHasone [Dexamethasone] 4 mg PO BID 01/24/20 01/24/20 History Acetaminophen 500 mg PO Q6HP PRN 01/25/20 01/25/20 History Albuterol Sulfate [Albuterol 2 puffs IH QID 01/25/20 01/25/20 History Sulfate Hfa] Fluoxetine HCl 10 mg PO Q48H 01/25/20 01/25/20 History Height: 1.57 m Weight: 84.912 kg Laboratory Results:: Laboratory Results - last 24 hr 01/29/20 05:20: Vancomycin Trough 16.6 H 01/29/20 05:20: WBC 6.0, RBC 4.02 L, Hgb 11.2 L, Hct 36.8 L, MCV 91.5, MCH 27.8, MCHC 30.4 L, RDW 17.8 H, Plt Count 328, MPV 9.0, Neut % (Auto) 66.8, Lymph % (Auto) 21.9, [place] % (Auto) 10.2 H, Eos % (Auto) 0.3, Baso % (Auto) 0.8, Neut # (Auto) 4.0, Lymph # (Auto) 1.3, [place] # (Auto) 0.6, Eos # (Auto) 0.0, Baso # (Auto) 0.1 01/29/20 05:20: Sodium 150 H, Potassium 3.6, Chloride 119 H, Carbon Dioxide 22, Anion Gap 12.6, BUN 32 H, Creatinine 0.90, Estimated Creat Clear 60, Estimated GFR 60, Est GFR ( Amer) 73, Glucose 104 H, Calcium 8.3 L Medical History: Reports:: Congestive Heart Failure (Systolic and diastolic dysfunction), Chronic Obstructive Pulmonary Disease (COPD), Home Oxygen, Hyperlipidemia, Hypertension, Renal Disease, Renal Insufficiency (Stage III chronic kidney disease) Denies:: Diabetes Mellitus Type 1, Diabetes Mellitus Type 2 Assessment and Plan (1) Acute and chronic respiratory failure with hypoxia Status: Acute Category: Medical Code(s): J96.21 - Acute and chronic respiratory failure with hypoxia (2) COVID-19 Status: Acute Category: Medical Code(s): U07.1 - COVID-19 (3) Pneumonia Status: Acute Category: Medical Code(s): J18.9 - Pneumonia, unspecified organism (4) Acute exacerbation of chronic obstructive airways disease Status: Acute Category: Medical Code(s): J44.1 - Chronic obstructive pulmonary disease with (acute) exacerbation (5) Acute kidney injury Status: Acute Category: Medical Code(s): N17.9 - Acute kidney failure, unspecified (6) Obesity (BMI 30.0-34.9) Status: Chronic Category: Medical Code(s): E66.9 - Obesity, unspecified (7) Functional quadriplegia Status: Chronic Category: Medical Code(s): R53.2 - Functional quadriplegia - Assessment and plan all Dx Assessment and Plan for all problems:: PATIENT'S VANCOMYCIN TROUGH WAS 16.9 MCG/ML THIS AM. RECOMMEND CONTINUING WITH VANCOMYCIN 1750 MG Q24H AT THIS TIME. PHARMACY WILL FOLLOW DAILY AND ADJUST APPROPRIATE.
--- NOTE | 2020-01-29 15:27 | PC.NURSE ---
PATIENT BEGAN SCREAMING FROM HER ROOM, THIS RN AND SRNA WENT INTO ROOM. PATIENT WAS CONTINUING TO YELL, COME ON. THIS RN ASKED PATIENT WHAT SHE WAS TALKING ABOUT, PATIENT CONTINUED TO YELL COME ON. PATIENT'S BREATHING BECAME MORE LABORED AND PATIENT WAS BEGINNING TO SHAKE. THIS RN ADMINISTERED THE ORDERED 0.5ML OF ATIVAN IV. PATIENT CONTINUED WITH SYMPTOMS. THIS RN PHONED DR. SORIANO AND REPORTED BEHAVIOR. MD ORDERED 1MG IV ATIVAN 1X ONLY. PATIENT'S BLOOD PRESSURE MEASURED 190/90 MANUAL, THIS RN ADMINISTERED ORDER LABETALOL, RECHECKED BP EVERY HOUR, BP HAS BEEN WNL. PATIENT WAS ABLE TO DRINK SOME OF HER MORNING SHAKE WITH HER PILLS CRUSHED. PATIENT REFUSED HER AFTERNOON MEAL AND SHAKE. PATIENT HAS HAD 1200 ML OF CLEAR STRAW COLOR URINE OUT SINCE ADMINISTRATION OF LASIX. NO OTHER CONCERNS AT THIS TIME.
--- NOTE | 2020-01-29 17:18 | PC.NURSE ---
PATIENT'S BP WAS 188/96. THIS RN ADMINISTERED ORDERED LABETALOL. PATIENT BEGAN YELLING OKAY AGAIN, THIS RN ATTEMPTED TO FEED PATIENT ALONG WITH HER CRUSHED MEDS. PATIENT WOULD NOT SWALLOW HER MEDICATIONS OR THE FOOD PROVIDED. THIS RN WILL CONTINUE TO MONITOR. NO OTHER CONCERNS AT THIS TIME.
[2020-01-30] VITALS (12 sets, daily range): BP systolic 98–170; BP diastolic 56–85; PULSE 50–77; RESP 20–25; TEMP 36.6–37.1; O2SAT 92–98; BMI 33.2
--- NOTE | 2020-01-30 01:39 | PC.NURSE ---
Pt placed on Bipap due to increased work of breathing and use of accessory muscles. Rate has increased since beginning of shift. MD notified. Settings are as follows :20/09, 60%, R 20.
--- NOTE | 2020-01-30 01:49 | PC.NURSE ---
Pts work of breathing getting worse so placed on Bipap S/T 16/8, RR20, and 60%.
--- NOTE | 2020-01-30 03:22 | PC.NURSE ---
Pt is currently resting. She remains on Bipap 60%. Respirations have improved. Less work of breathing noted. Respirations are 20. O2 sat 94%. Lungs noted to have rhonchi t/o. BP is stable. Has been hypertensive x1 this shift during episode when pt was anxious around 0. was notified at that time. One time order of Ativan 0.5 mg IV was ordered and administered. BP returned to baseline. BP is currently 136/80. HR 53. Pt has been afebrile. No other concerns at this time. Will continue to monitor.
--- NOTE | 2020-01-30 05:35 | PC.NURSE ---
Pt catheter was noted to have leaked. F/C adjusted and balloon deflated and reinflated. Pt's lower extremities adjusted along with a pillow placed between extremities. While adjusting catheter, a sufficient amount of urine was noted in tubing. Will continue to monitor.
[2020-01-30 05:49] LABS: Basophils % 0.5 % (0.1-2.0); Eosinophils # 0.1 K/mm3 (0.0-0.4); Eosinophils % 1.1 % (0.1-12.0); Hematocrit 36.2 % (37.0-47.0); Hemoglobin 11.1 g/dL (12.2-16.2); Lymphocytes # 1.5 K/mm3 (0.7-4.5); Lymphocytes % 20.9 % (10-50); Mean Corpuscular HGB Conc 30.7 g/dL (31.8-35.4); Mean Corpuscular Hemoglobin 27.4 pg (27.0-31.2); Mean Corpuscular Volume 89.1 fl (81-99); Monocytes # 0.5 K/mm3 (0.1-1.0); Monocytes % 6.7 % (1.7-9.3); Neutrophils # 4.9 K/mm3 (1.8-7.8); Neutrophils % 70.8 % (37.0-80.0); Platelet Count 377 K/mm3 (142-424); Red Blood Count 4.06 M/mm3 (4.20-5.40); Red Cell Distribution Width 18.1 % (11.5-17.5); White Blood Count 6.9 K/mm3 (4.8-10.8)
[2020-01-30 05:52] LABS: Chloride 119 mmol/L (98-107)
[2020-01-30 05:53] LABS: Potassium 3.3 mmoL/L (3.5-5.1)
[2020-01-30 05:56] LABS: Anion Gap 12.3 mEq/L (5-15); Blood Urea Nitrogen 34 mg/dl (7-17); Calcium 8.6 mg/dl (8.4-10.2); Carbon Dioxide 23 mmol/L (22.0-30.0); Creatinine Clearance Estimated 58 mL/min (50-200); Estimated Glomerular Filt Rate 53 ml/min (>60); GFR (African American) 65 ML/MIN (>60); Glucose 93 mg/dl (74-100)
[2020-01-30 06:02] LABS: Sodium 151 mmol/L (136-145)
--- NOTE | 2020-01-30 06:05 | PC.NURSE ---
IV in (L) hand #22 infiltrated. New IV placement in (L) thumb #22. Critical lab result sodium 151 reported to space systems operations superintendent MD. Awaiting new orders.
--- NOTE | 2020-01-30 08:23 | XR_ITS ---
PROCEDURE: XR CHEST PORTABLE CLINICAL HISTORY: f/u icu exam Follow-up pneumonia COMPARISON: CR XR CHEST PORTABLE from 01/24/2020 CR XR CHEST PORTABLE from 01/26/2020 CR XR CHEST PORTABLE from 01/27/2020 FINDINGS: Unremarkable cardiovascular structures. Multiple calcified granulomas calcified hilar lymph nodes are present. Right lower lobe pneumonia once again noted probably unchanged considering the difference in inspiration. Probable chronic change left lung base accentuated by poor inspiration. Severe degenerative changes are present in the shoulders. IMPRESSION: Overall probably no significant change in the right lower lobe pneumonia with chronic change in the left lung base versus developing pneumonia with poor inspiration Dictated by: Zohaib Spain MD 01/30/2020 08:09 Zohaib Spain MD in OV 01/30/2020 08:09
--- NOTE | 2020-01-30 08:50 | HMH.ACPN2 ---
Internal Medicine - PN: Subj *Date: 01/30/20 *Time: 08:50 Interval history: Overnight patient did fairly well except for one episode of agitation. Required going back on BiPAP, blood pressure and heart rate responded very nicely. She remains significantly anxious and has been refusing food and medicines from the nursing staff and is now been somewhat deliberately noncommunicative. Possible mood disorder exacerbation? Exam Vital signs and Labs for Last 24 Hours: Temp Pulse Resp BP Pulse Ox 97.8 F 65 25 H 144/74 H 95 01/30/20 08:00 01/30/20 08:00 01/30/20 08:00 01/30/20 08:00 01/30/20 08:00 Laboratory Results - last 24 hr 01/30/20 05:35: WBC 6.9, RBC 4.06 L, Hgb 11.1 L, Hct 36.2 L, MCV 89.1, MCH 27.4, MCHC 30.7 L, RDW 18.1 H, Plt Count 377, MPV 8.0, Neut % (Auto) 70.8, Lymph % (Auto) 20.9, [place] % (Auto) 6.7, Eos % (Auto) 1.1, Baso % (Auto) 0.5, Neut # (Auto) 4.9, Lymph # (Auto) 1.5, [place] # (Auto) 0.5, Eos # (Auto) 0.1, Baso # (Auto) 0.0 01/30/20 05:35: Sodium 151 H*, Potassium 3.3 L, Chloride 119 H, Carbon Dioxide 23, Anion Gap 12.3, BUN 34 H, Creatinine 1.00, Estimated Creat Clear 58, Estimated GFR 53 L, Est GFR ( Amer) 65, Glucose 93, Calcium 8.6 I & O for Last 24 hours: Intake & Output 01/27/20 01/28/20 01/29/20 01/30/20 11:59 11:59 11:59 11:59 Intake Total 1773 / 1773 180 / 180 0 / 0 340 / 340 Output Total 750 / 750 1900 / 1900 825 / 825 2074 / 207 Balance 1023 / 1023 -1720 / -1720 -825 / -825 -1735 / -1735 Weight 186 lb 4 oz 186 lb 5 oz 187 lb 3.2 oz 180 lb 9 oz Microbiology Reports for the Last 24 Hours: Microbiology 01/24/20 14:50 Blood Blood Culture - Final NO GROWTH AFTER 5 DAYS 01/24/20 14:50 Blood Blood Culture - Final NO GROWTH AFTER 5 DAYS 01/27/20 10:10 Sputum - Expectorated Sputum Gram Stain - Final 01/27/20 10:10 Sputum - Expectorated Sputum Sputum Culture - Preliminary Narrative: On BiPAP, vital signs normal. O2 saturation 96% on current settings with normal pulse rate and blood pressure. Oropharynx clear, edentulous. Lungs have fairly symmetric air entry, some rhonchorous sounds but no crackles. No abdominal tenderness or distention. Heart rate regular. Extremities warm and well-perfused. Neurologic exam compromised because of recent Ativan administration. Assessment and Plan (1) Acute and chronic respiratory failure with hypoxia Status: Acute Category: Medical Code(s): J96.21 - Acute and chronic respiratory failure with hypoxia (2) COVID-19 Status: Acute Category: Medical Code(s): U07.1 - COVID-19 (3) Pneumonia Status: Acute Category: Medical Code(s): J18.9 - Pneumonia, unspecified organism (4) Acute exacerbation of chronic obstructive airways disease Status: Acute Category: Medical Code(s): J44.1 - Chronic obstructive pulmonary disease with (acute) exacerbation (5) Acute kidney injury Status: Acute Category: Medical Code(s): N17.9 - Acute kidney failure, unspecified (6) Obesity (BMI 30.0-34.9) Status: Chronic Category: Medical Code(s): E66.9 - Obesity, unspecified (7) Functional quadriplegia Status: Chronic Category: Medical Code(s): R53.2 - Functional quadriplegia - Assessment and plan all Dx Assessment and Plan for all problems:: ICU care continues: Continue BiPAP support. BiPAP seems to be doing very well for ventilation and oxygenation. Chest x-ray this morning looks improved. Continue broad-spectrum antibiotics. Continue ICU stress ulcer and DVT prophylaxis. In regards to patient's refusal of food or fluids we will try atypical antipsychotic parenterally with low-dose Zyprexa twice daily and see if this helps her mood somewhat. She has a long history of mood disorder and anxiety. Please note 1 hour ICU care including record review, x-ray review, ventilation management.
--- NOTE | 2020-01-30 09:29 | PC.NURSE ---
INCREASED WORK OF BREATHING, PT PLACED BACK ON BIPAP AT 0810
--- NOTE | 2020-01-30 11:07 | P.PN_ITS ---
Internal Medicine - PN: Subj *Date: 01/30/20 *Time: 11:07 Exam Vital signs and Labs for Last 24 Hours: Temp Pulse Resp BP Pulse Ox 97.8 F 65 25 H 144/74 H 92 L 01/30/20 08:00 01/30/20 08:00 01/30/20 08:00 01/30/20 08:00 01/30/20 08:00 Laboratory Results - last 24 hr 01/30/20 05:35: WBC 6.9, RBC 4.06 L, Hgb 11.1 L, Hct 36.2 L, MCV 89.1, MCH 27.4, MCHC 30.7 L, RDW 18.1 H, Plt Count 377, MPV 8.0, Neut % (Auto) 70.8, Lymph % (Auto) 20.9, [place] % (Auto) 6.7, Eos % (Auto) 1.1, Baso % (Auto) 0.5, Neut # (Aut o) 4.9, Lymph # (Auto) 1.5, [place] # (Auto) 0.5, Eos # (Auto) 0.1, Baso # (Auto) 0.0 01/30/20 05:35: Sodium 151 H*, Potassium 3.3 L, Chloride 119 H, Carbon Dioxide 23, Anion Gap 12.3, BUN 34 H, Creatinine 1.00, Estimated Creat Clear 58, Estimated GFR 53 L, Est GFR ( Amer) 65, Glucose 93, Calcium 8.6 I & O for Last 24 hours: Intake & Output 01/27/20 01/28/20 01/29/20 01/30/20 23:59 23:59 23:59 23:59 Intake Total 1653 / 1653 0 / 0 340 / 340 0 / 0 Output Total 1450 / 1450 1100 / 1225 2150 / 2150 350 / 350 Balance 203 / 203 -1100 / -1225 -1810 / -1810 -350 / -350 Weight 84.482 kg 84.51 kg 84.912 kg 81.902 kg Microbiology Reports for the Last 24 Hours: Microbiology 01/27/20 10:10 Sputum - Expectorated Sputum Gram Stain - Final 01/27/20 10:10 Sputum - Expectorated Sputum Sputum Culture - Final Normal Respiratory Mar 01/24/20 14:50 Blood Blood Culture - Final NO GROWTH AFTER 5 DAYS 01/24/20 14:50 Blood Blood Culture - Final NO GROWTH AFTER 5 DAYS Assessment and Plan (1) Acute and chronic respiratory failure with hypoxia Status: Acute Category: Medical Code(s): J96.21 - Acute and chronic respiratory failure with hypoxia (2) COVID-19 Status: Acute Category: Medical Code(s): U07.1 - COVID-19 (3) Pneumonia Status: Acute Category: Medical Code(s): J18.9 - Pneumonia, unspecified organism (4) Acute exacerbation of chronic obstructive airways disease Status: Acute Category: Medical Code(s): J44.1 - Chronic obstructive pulmonary disease with (acute) exacerbation (5) Acute kidney injury Status: Acute Category: Medical Code(s): N17.9 - Acute kidney failure, unspecified (6) Obesity (BMI 30.0-34.9) Status: Chronic Category: Medical Code(s): E66.9 - Obesity, unspecified (7) Functional quadriplegia Status: Chronic Category: Medical Code(s): R53.2 - Functional quadriplegia The patient's infection will respond to the chosen ABx?: Yes Is the patient receiving the right drug, dose, and route?: Yes Could a more targeted ABx be ordered?: No
--- NOTE | 2020-01-30 18:11 | DIET.NUTRFU ---
Pt has refused all nutrition since Sunday, MD and care team aware. Psych medication regimen started today may benefit. 6# weight loss. Pt at risk malnutrition, encouragement appreciated. If pt continues to refuse PO intake 48 hours, nutritional support may be indicated. Continuing to monitor.
--- NOTE | 2020-01-30 18:24 | PC.NURSE ---
Patient is resting in bed. Patient has been slightly more agitated today. Does not answer any questions. Will not follow any commands. Patient was given her medication in applesauce but refused to swallow or drink. IV medication ordered for mood. Responds well to ativan as well. Respiratory: Patient has alternated during shift between the ventimask at 50% and the bipap. Current oxygen saturation is 99% on the bipap. Respiratory rate has been slightly elevated during shift. When agitated she will breathe 26 times per minute (maximum noted), while resting her rr averages roughly 22. Cardiac: Patients blood pressure elevates with agitation. Responds well to ativan which slows her respirations and lowers her blood pressure. Heartrate is currently 58 bpm, sb noted throughout shift. GI: Patient has refused all meals today. Will not swallow or show any interest in food or drinking. No bm today. : F/C in place. Urine output during shift was 225cc. Concentrated urine. Skin: No dti noted on patients coccyx. Mepilex in place. Stage 1 noted on patients face next to her nose. Mepilex applied to prevent further breakdown. Oral care provided q2 hours using oral care kit with chlorahexadine mouth rinse hooked to suction. Spoke with daughter today. Informed her that would like to speak with her tomorrow. IV in place, fluids running, 1/2 ns with 20 potassium at 50 ml per hour. Will continue to monitor patient.
--- NOTE | 2020-01-30 22:00 | PC.NURSE ---
Pt unable to swallow safely at this time d/t lethargy.
[2020-01-31] VITALS (12 sets, daily range): BP systolic 107–171; BP diastolic 54–95; PULSE 49–77; RESP 0–28; TEMP 36.7–37.1; O2SAT 96–100; BMI 33.2
--- NOTE | 2020-01-31 05:04 | PC.NURSE ---
Pt has been lethargic and unable to answer questions or follow commands. At the beginning of shift pt was difficult to arouse and only responded to pain. After repeated stimulation, pt opened eyes for several seconds but gave no other purposeful physical or verbal responses. Pt was on bipap throughout the night with sats in the mid 90s, lung sounds were diminished with rhonchi scattered throughout. Pt was not able to swallow meds crushed, and has not had any oral intake this shift. UOP has been adequate. Skin on coccyx reddened but blanchable. Pt has been turned q2 throughout shift. +1 nonpitting edema noted to BLE. Bowel sounds were positive x4. Small BM today. VSS, call light in reach. no concerns at this time.
--- NOTE | 2020-01-31 06:39 | PC.NURSE ---
Pt care has been supervised by Primary RN, Kandi Chacon.
[2020-01-31 07:26] LABS: Chloride 123 mmol/L (98-107)
[2020-01-31 07:29] LABS: Blood Urea Nitrogen 38 mg/dl (7-17); Carbon Dioxide 22 mmol/L (22.0-30.0); Creatinine Clearance Estimated 58 mL/min (50-200); Estimated Glomerular Filt Rate 53 ml/min (>60); GFR (African American) 65 ML/MIN (>60)
[2020-01-31 07:30] LABS: Calcium 8.7 mg/dl (8.4-10.2); Glucose 95 mg/dl (74-100); Sodium 154 mmol/L (136-145)
--- NOTE | 2020-01-31 09:50 | HMH.ACPN2 ---
Internal Medicine - PN: Subj *Date: 01/31/20 *Time: 09:50 Interval history: Patient was on BiPAP most of the night yesterday, and has an issue with refusing food and fluids and medication, when she is placed on mask. She has increasing heart rates and anxiety and blood pressure. Fairly well controlled with labetalol. Exam Vital signs and Labs for Last 24 Hours: Temp Pulse Resp BP Pulse Ox 98.8 F 67 18 169/85 H 99 01/31/20 08:00 01/31/20 08:00 01/31/20 08:00 01/31/20 08:00 01/31/20 08:00 Laboratory Results - last 24 hr 01/31/20 06:48: Sodium 154 H*, Potassium 4.0 D, Chloride 123 H, Carbon Dioxide 22, Anion Gap 13.0, BUN 38 H, Creatinine 1.00, Estimated Creat Clear 58, Estimated GFR 53 L, Est GFR ( Amer) 65, Glucose 95, Calcium 8.7 I & O for Last 24 hours: Intake & Output 01/28/20 01/29/20 01/30/20 01/31/20 11:59 11:59 11:59 11:59 Intake Total 180 / 180 0 / 0 340 / 340 0 / 0 Output Total 1900 / 1900 825 / 825 2075 / 2075 225 / 225 Balance -1720 / -1720 -825 / -825 -1735 / -1735 -225 / -225 Weight 186 lb 5 oz 187 lb 3.2 oz 180 lb 9 oz 180 lb 8 oz Microbiology Reports for the Last 24 Hours: Microbiology 01/27/20 10:10 Sputum - Expectorated Sputum Gram Stain - Final 01/27/20 10:10 Sputum - Expectorated Sputum Sputum Culture - Final Normal Respiratory Mar Narrative: Exam is really unchanged, symmetric air entry with rhonchi and crackles. Heart rate remains regular. Abdomen soft, distal perfusion is good. Arthritic changes as previous. Neurologic exam with disorientation, she does respond verbally to questions and minimally responsive to commands. No skin breakdown or rash. Assessment and Plan (1) Acute and chronic respiratory failure with hypoxia Status: Acute Category: Medical Code(s): J96.21 - Acute and chronic respiratory failure with hypoxia (2) COVID-19 Status: Acute Category: Medical Code(s): U07.1 - COVID-19 (3) Pneumonia Status: Acute Category: Medical Code(s): J18.9 - Pneumonia, unspecified organism (4) Acute exacerbation of chronic obstructive airways disease Status: Acute Category: Medical Code(s): J44.1 - Chronic obstructive pulmonary disease with (acute) exacerbation (5) Acute kidney injury Status: Acute Category: Medical Code(s): N17.9 - Acute kidney failure, unspecified (6) Obesity (BMI 30.0-34.9) Status: Chronic Category: Medical Code(s): E66.9 - Obesity, unspecified (7) Functional quadriplegia Status: Chronic Category: Medical Code(s): R53.2 - Functional quadriplegia - Assessment and plan all Dx Assessment and Plan for all problems:: Ongoing significant hypoxia issues complicated by her severe anxiety when she feels breathless. Continue BiPAP support. Nutrition is becoming an issue. I had a long discussion with her daughter this morning about her overall extremely poor prognosis and CODE STATUS. I will discuss again with her in 48 hours. I discussed with her the overwhelming likelihood of mortality if she does end up on a ventilator or if CPR has to be done. We will try to obtain better IV access today. Currently continue present management Hour critical care time including record review, x-ray review and family discussion
--- NOTE | 2020-01-31 15:53 | PC.NURSE ---
PT IS RESTING IN BED. NO COMPLAINTS OF DISCOMFORT BUT PT HAS HAS SOME PERIODS OF RESTLESSNESS T/O THE SHIFT. TURNED AND REPOSITIONED FREQUENTLY. ATTEMPTED TO GIVE PT AN ASORBIC ACID CRUSHED IN PUDDING THIS SHIFT BUT PT WAS UNABLE TO SWALLOW. PT WAS SUCTIONED AND ORAL CARE WAS PROVIDED. PT WILL RESPOND TO NAME BUT SPEECH IS VERY MUMBLED WHICH MAKES IT DIFFICULT TO COMMUNICATE. 1+ EDEMA NOTED TO BLE/BUE. IV ACCESS TO THE LEFT HAND STARTED TO LEAK THIS AFTERNOON. PCP WAS NOTIFIED ABOUT SOMEONE BEING AVAILABLE LATE TONIGHT OR IN THE MORNING TO ATTEMPT PICC INSERTION B/C PT HAS HAD SEVERAL DIFFERENT IV'S AND IT IS BECOMING MORE DIFFICULT TO GET LAB DRAWS. ED STAFF WAS NOTIFIED AND ABLE TO OBTAIN IV ACCESS TO THE LAC. LUNG SOUNDS HAVE SCATTERED RHONCHI. ABDOMEN SOFT WITH ACTIVE BOWEL SOUNDS. HEEL PROTECTORS IN PLACE. BLE ELEVATED ON A PILLOW. PT'S BP RESPONDED WELL TO THE IV LABETALOL (DOSE WAS DECREASED TO 10 MG) O2 SATURATION HAS MAINTAINED 92-96% ON BIPAP. PT IS STILL NOT EATING OR DRINKING. PCP STATED IF PICC WAS UNSUCCESSFUL THEN TO CONSULT GENERAL SURGERY FOR CENTRAL LINE PLACEMENT.
[2020-02-01] VITALS (19 sets, daily range): BP systolic 127–208; BP diastolic 54–103; PULSE 68–83; RESP 20–28; TEMP 36.4–37.5; O2SAT 91–100; BMI 33.7
--- NOTE | 2020-02-01 03:49 | PC.NURSE ---
Pt has slept most of this shift. Pt has had very brief moments of agitation, but would quickly reorient and fall back asleep. 2100 PO meds held due to pt not being alert enough to swallow. Pt was turned q2h this shift and oral care has been provided. Bipap remains in place. o2 sats have maintained mid to upper 90's this shift. Inspiratory and expiratory rhonchi heard t/o per auscultation. Pt has had no episodes of HTN this shift. Logan catheter remains patent and is draining cloudy, dark yellow urine with no odor. No other acute changes or complaints at this time. Will continue to monitor.
--- NOTE | 2020-02-01 05:39 | PC.NURSE ---
Had trouble getting access for AM labs. Lab called, but was backed up due to lab draws on floor. Sales Order Administrator in room at this time attempting lab draw.
--- NOTE | 2020-02-01 06:00 | XR_ITS ---
PROCEDURE: XR CHEST PORTABLE PICC PLAC Referring Doctor: Trey Hurtado Patient Age:79Y CLINICAL HISTORY: Confirm PICC line placement . Follow-up pneumonia COMPARISON: CR XR CHEST PORTABLE from 01/26/2020 CR XR CHEST PORTABLE from 01/27/2020 CR XR CHEST PORTABLE from 01/30/2020 FINDINGS: AP portable semi-erect chest performed today New PICC line is been placed.-It enters from the left arm transversing left subclavian vein with tip at the brachycephalic just at its its junction with SVC. This should be adequate position. The airspace disease at right infrahilar region right lung base is again noted and appears basically stable since 01/29-perhaps incremental better expansion today. . We again see some crowding markings with minimal atelectasis in scant airspace disease at the left lung base partially obscuring the dome left hemidiaphragm. I favor this most likely reflects atelectasis and chronic change with appearance similar to recent January chest films-however difficult to totally exclude a subtle associated infiltrate here at left lung base but tend 2 favor scarring and atelectasis Upper normal markings left infrahilar region also observed. The upper lung bustos appear clear and stable bilateral. The cardiomediastinal silhouette and pulmon is gregorio vascularity are within normal limits. Calcified hilar and mediastinal nodes reflect old granulomatous disease. No acute bony abnormalities IMPRESSION: PICC line enters from the left. Tip of the PICC line at the brachycephalic vein just at its junction with SVC. Overall adequate position Airspace disease right lung base again evident similar to yesterday's study with perhaps slight incremental improved aeration. (. Compared back to January 26 CXR there does appear to be more convincing improvement here.) Scant airspace disease at inferior left lung base most likely reflecting atelectasis and scarring the Dictated by: Mio Ramirze MD 02/01/2020 10:59 Mio Ramirez MD in [facility] 02/01/2020 10:59
[2020-02-01 06:10] LABS: Basophils # 0.1 K/mm3 (0-0.2); Eosinophils # 0.1 K/mm3 (0.0-0.4); Eosinophils % 1.8 % (0.1-12.0); Hematocrit 37.9 % (37.0-47.0); Hemoglobin 11.2 g/dL (12.2-16.2); Lymphocytes # 1.4 K/mm3 (0.7-4.5); Lymphocytes % 21.2 % (10-50); Mean Corpuscular HGB Conc 29.6 g/dL (31.8-35.4); Mean Corpuscular Hemoglobin 27.7 pg (27.0-31.2); Mean Corpuscular Volume 93.6 fl (81-99); Mean Platelet Volume 8.3 fl (7.4-10.4); Monocytes # 0.4 K/mm3 (0.1-1.0); Monocytes % 6.5 % (1.7-9.3); Neutrophils # 4.5 K/mm3 (1.8-7.8); Neutrophils % 69.6 % (37.0-80.0); Platelet Count 347 K/mm3 (142-424); Red Blood Count 4.04 M/mm3 (4.20-5.40); Red Cell Distribution Width 18.2 % (11.5-17.5); White Blood Count 6.5 K/mm3 (4.8-10.8)
[2020-02-01 06:22] LABS: Anion Gap 14.7 mEq/L (5-15); Blood Urea Nitrogen 36 mg/dl (7-17); Calcium 8.6 mg/dl (8.4-10.2); Carbon Dioxide 18 mmol/L (22.0-30.0); Creatinine Clearance Estimated 59 mL/min (50-200); Estimated Glomerular Filt Rate 53 ml/min (>60); GFR (African American) 65 ML/MIN (>60); Glucose 87 mg/dl (74-100); Potassium 3.7 mmoL/L (3.5-5.1)
[2020-02-01 06:29] LABS: Chloride 125 mmol/L (98-107); Sodium 154 mmol/L (136-145); Vancomycin,Trough 27.4 ug/mL (5.0-10.0)
--- NOTE | 2020-02-01 08:52 | HMH.ACPN2 ---
Internal Medicine - PN: Subj *Date: 02/01/20 *Time: 08:52 Interval history: Nursing staff has successfully replaced IV access which is much less tenuous than yesterday. Patient remains on BiPAP support, if the BiPAP mask is moved patient becomes very anxious, hypoxic and tachycardic along with elevated blood pressure. Exam Vital signs and Labs for Last 24 Hours: Temp Pulse Resp BP Pulse Ox 97.6 F 76 28 H 174/96 H 95 02/01/20 08:00 02/01/20 08:00 02/01/20 08:00 02/01/20 08:25 02/01/20 08:00 Laboratory Results - last 24 hr 02/01/20 06:00: WBC 6.5, RBC 4.04 L, Hgb 11.2 L, Hct 37.9, MCV 93.6, MCH 27.7, MCHC 29.6 L, RDW 18.2 H, Plt Count 347, MPV 8.3, Neut % (Auto) 69.6, Lymph % (Auto) 21.2, [place] % (Auto) 6.5, Eos % (Auto) 1.8, Baso % (Auto) 1.0, Neut # (Auto) 4.5, Lymph # (Auto) 1.4, [place] # (Auto) 0.4, Eos # (Auto) 0.1, Baso # (Auto) 0.1 02/01/20 06:00: Sodium 154 H*, Potassium 3.7, Chloride 125 H, Carbon Dioxide 18 L, Anion Gap 14.7, BUN 36 H, Creatinine 1.00, Estimated Creat Clear 59, Estimated GFR 53 L, Est GFR ( Amer) 65, Glucose 87, Calcium 8.6 02/01/20 06:00: Vancomycin Trough 27.4 H I & O for Last 24 hours: Intake & Output 01/29/20 01/30/20 01/31/20 02/01/20 11:59 11:59 11:59 11:59 Intake Total 0 / 0 340 / 340 0 / 0 851 / 851 Output Total 825 / 825 5 / 2075 225 / 225 825 / 825 Balance -825 / -825 -1735 / -1735 -225 / -225 Weight 187 lb 3.2 oz 180 lb 9 oz 180 lb 8 oz 183 lb 9 oz Narrative: Patient remains on BiPAP, today she is much less responsive verbally to conversation. Air movement however seems to be improved, and her oxygenation and vital signs on fairly significant BiPAP support with 100% FiO2 are stable. Abdomen soft and nontender. Logan catheter draining clear yellow urine. ENT exam otherwise clear. Neurologic exam unreliable because of her current obtundation. Assessment and Plan (1) Acute and chronic respiratory failure with hypoxia Status: Acute Category: Medical Code(s): J96.21 - Acute and chronic respiratory failure with hypoxia (2) COVID-19 Status: Acute Category: Medical Code(s): U07.1 - COVID-19 (3) Pneumonia Status: Acute Category: Medical Code(s): J18.9 - Pneumonia, unspecified organism (4) Acute exacerbation of chronic obstructive airways disease Status: Acute Category: Medical Code(s): J44.1 - Chronic obstructive pulmonary disease with (acute) exacerbation (5) Acute kidney injury Status: Acute Category: Medical Code(s): N17.9 - Acute kidney failure, unspecified (6) Obesity (BMI 30.0-34.9) Status: Chronic Category: Medical Code(s): E66.9 - Obesity, unspecified (7) Functional quadriplegia Status: Chronic Category: Medical Code(s): R53.2 - Functional quadriplegia - Assessment and plan all Dx Assessment and Plan for all problems:: Patient remains hypernatremic. It however has plateaued, we will continue low-dose infusions of half-normal saline. Follow labs tomorrow. Acute kidney injury has also improved. Respiratory status is unchanged and is poor. I had a long discussion with her [id number] is her healthcare surrogate yesterday. I plan to discuss the case again with her tomorrow. My conviction is that intubation for this patient would be futile, and that if things do not improve in the next 24 to 48 hours we should consider palliative care and converting her CODE STATUS. She has multiple health problems that put her at significant risk for mortality related to COVID-19, most impressive is her age and her significant immobility. Please note 1 hour of critical care time including record review.
--- NOTE | 2020-02-01 11:03 | HMH.PHACONS ---
- Pharmacy Consult Date: 02/01/20 Time: 11:03 Referring provider: DR. SORIANO Reason for Consult:: VANCOMYCIN TROUGH LEVEL Allergies and ADEs:: Allergies Allergy/AdvReac Type Severity Reaction Status Date / Time No Known Allergies Allergy Unverified 01/25/20 08:09 Home Medications:: Home Medications Medication Instructions Recorded Confirmed Type Acetaminophen [Tylenol 500mg 500 mg PO BID 01/24/20 01/24/20 History tablet] Ascorbic Acid [Vitamin C] 500 mg PO DAILY 01/24/20 01/24/20 History Aspirin [Aspirin 81mg EC Tab] 81 mg PO DAILY 01/24/20 01/24/20 History Azithromycin [Zithromax 250mg 250 mg PO DIRECTED 01/24/20 01/24/20 History tab] Cefdinir [Omnicef 300mg Capsule] 300 mg PO BID 01/24/20 01/24/20 History Celecoxib [CeleBREX 100mg Capsule] 100 mg PO BID 01/24/20 01/24/20 History Cholecalciferol (Vitamin D3) 2 tab PO DAILY 01/24/20 01/24/20 History [Vitamin D3 1,000 Unit Cap] Eslicarbazepine Acetate [Aptiom] 600 mg PO DAILY 01/24/20 01/24/20 History Fluticasone/Vilanterol [Breo 1 inh IH DAILY 01/24/20 01/24/20 History Ellipta 100-25 Mcg INH] Furosemide [Furosemide 40MG tAB*] 40 mg PO DAILY 01/24/20 01/24/20 History Ipratropium/Albuterol Sulfate 3 ml IH Q4H 01/24/20 01/24/20 History [Duoneb 3mL neb] Omeprazole Magnesium [Prilosec Otc 20 mg PO HS 01/24/20 01/25/20 History 20mg Tab] Tramadol HCl [Tramadol 50mg 50 mg PO Q6HP PRN 01/24/20 01/24/20 History Tab] Zinc Gluconate [Zinc] 50 mg PO BID 01/24/20 01/24/20 History dexAMETHasone [Dexamethasone] 4 mg PO BID 01/24/20 01/24/20 History Acetaminophen 500 mg PO Q6HP PRN 01/25/20 01/25/20 History Albuterol Sulfate [Albuterol 2 puffs IH QID 01/25/20 01/25/20 History Sulfate Hfa] Fluoxetine HCl 10 mg PO Q48H 01/25/20 01/25/20 History Height: 1.57 m Weight: 83.263 kg Laboratory Results:: Laboratory Results - last 24 hr 02/01/20 06:00: WBC 6.5, RBC 4.04 L, Hgb 11.2 L, Hct 37.9, MCV 93.6, MCH 27.7, MCHC 29.6 L, RDW 18.2 H, Plt Count 347, MPV 8.3, Neut % (Auto) 69.6, Lymph % (Auto) 21.2, [place] % (Auto) 6.5, Eos % (Auto) 1.8, Baso % (Auto) 1.0, Neut # (Auto) 4.5, Lymph # (Auto) 1.4, [place] # (Auto) 0.4, Eos # (Auto) 0.1, Baso # (Auto) 0.1 02/01/20 06:00: Sodium 154 H*, Potassium 3.7, Chloride 125 H, Carbon Dioxide 18 L, Anion Gap 14.7, BUN 36 H, Creatinine 1.00, Estimated Creat Clear 59, Estimated GFR 53 L, Est GFR ( Amer) 65, Glucose 87, Calcium 8.6 02/01/20 06:00: Vancomycin Trough 27.4 H Medical History: Reports:: Congestive Heart Failure (Systolic and diastolic dysfunction), Chronic Obstructive Pulmonary Disease (COPD), Home Oxygen, Hyperlipidemia, Hypertension, Renal Disease, Renal Insufficiency (Stage III chronic kidney disease) Denies:: Diabetes Mellitus Type 1, Diabetes Mellitus Type 2 Assessment and Plan (1) Acute and chronic respiratory failure with hypoxia Status: Acute Category: Medical Code(s): J96.21 - Acute and chronic respiratory failure with hypoxia (2) COVID-19 Status: Acute Category: Medical Code(s): U07.1 - COVID-19 (3) Pneumonia Status: Acute Category: Medical Code(s): J18.9 - Pneumonia, unspecified organism (4) Acute exacerbation of chronic obstructive airways disease Status: Acute Category: Medical Code(s): J44.1 - Chronic obstructive pulmonary disease with (acute) exacerbation (5) Acute kidney injury Status: Acute Category: Medical Code(s): N17.9 - Acute kidney failure, unspecified (6) Obesity (BMI 30.0-34.9) Status: Chronic Category: Medical Code(s): E66.9 - Obesity, unspecified (7) Functional quadriplegia Status: Chronic Category: Medical Code(s): R53.2 - Functional quadriplegia - Assessment and plan all Dx Assessment and Plan for all problems:: VANCOMYCIN TROUGH LEVEL WAS 27.4 THIS MORNING. VANCOMYCIN DOSE WAS HELD AND ORDER WAS CHANGED TO VANCOMYCIN 1500 MG IV Q36H. VANCOMYCIN WILL BE DISCONTINUED AFTER SPEAKING WITH .
--- NOTE | 2020-02-01 16:13 | PC.NURSE ---
PT IS RESTING IN BED. PT WAS REMOVED FROM BIPAP THIS AFTERNOON AND PUT ON A 50% VENTI MASK. PT MAINTAINED AN O2 SATURATION 94-97% WITH THE VENTI MASK. ORAL CARE HAS BEEN PROVIDED FREQUENTLY THIS SHIFT. PT IS STILL UNABLE TO EAT OR DRINK. AND HAS BEEN LESS RESPONSIVE THIS SHIFT. TURNED AND REPOSITIONED Q2H. PT NOW HAS PICC ACCESS TO THE [place]. PT STILL HAS A 20G IN THE LAC SL. LUNG SOUNDS DIMINISHED WITH SCATTERED RHONCHI/CRACKLES. ABDOMEN SOFT/NON TENDER WITH ACTIVE BOWEL SOUNDS. PT DID HAVE A BOWEL MOVEMENT THIS SHIFT. WILL CONTINUE TO MONITOR.
--- NOTE | 2020-02-01 20:41 | PC.NURSE ---
She is total care. Unable to state name or answer any questions. She continues in contact and airborne precautions. She also is a left limb alert r/t PICC in [facility]. Continues in seizure precautions. Oral care provided. Bunny boots in place on bilateral feet. Attempted to give her nighttime medications. She did not swallow and her mouth had to be suctioned and cleaned out. Intermittent, non-productive cough present.
[2020-02-02] VITALS (10 sets, daily range): BP systolic 125–181; BP diastolic 67–98; PULSE 60–95; RESP 20–28; TEMP 36.3–37.2; O2SAT 94–98; BMI 33.1
[2020-02-02 05:42] LABS: Basophils # 0.1 K/mm3 (0-0.2); Eosinophils # 0.2 K/mm3 (0.0-0.4); Eosinophils % 2.1 % (0.1-12.0); Hematocrit 35.4 % (37.0-47.0); Hemoglobin 10.6 g/dL (12.2-16.2); Lymphocytes # 1.6 K/mm3 (0.7-4.5); Lymphocytes % 22.4 % (10-50); Mean Corpuscular HGB Conc 30.1 g/dL (31.8-35.4); Mean Corpuscular Hemoglobin 27.6 pg (27.0-31.2); Mean Corpuscular Volume 91.7 fl (81-99); Mean Platelet Volume 8.2 fl (7.4-10.4); Monocytes # 0.5 K/mm3 (0.1-1.0); Neutrophils # 4.8 K/mm3 (1.8-7.8); Neutrophils % 67.5 % (37.0-80.0); Platelet Count 339 K/mm3 (142-424); Red Blood Count 3.86 M/mm3 (4.20-5.40); Red Cell Distribution Width 18.4 % (11.5-17.5)
[2020-02-02 06:09] LABS: Potassium 3.6 mmoL/L (3.5-5.1)
[2020-02-02 06:12] LABS: Anion Gap 11.6 mEq/L (5-15); Blood Urea Nitrogen 32 mg/dl (7-17); Calcium 8.5 mg/dl (8.4-10.2); Carbon Dioxide 20 mmol/L (22.0-30.0); Creatinine Clearance Estimated 58 mL/min (50-200); Estimated Glomerular Filt Rate 53 ml/min (>60); GFR (African American) 65 ML/MIN (>60); Glucose 90 mg/dl (74-100)
[2020-02-02 06:51] LABS: Chloride 126 mmol/L (98-107); Sodium 154 mmol/L (136-145)
--- NOTE | 2020-02-02 08:38 | P.PN_ITS ---
Internal Medicine - PN: Subj *Date: 02/02/20 *Time: 08:38 Interval history: High flow oxygen mask but has been able to be off BiPAP overnight since 2 PM yesterday. Diuresis seem to help yesterday. Chest x-ray yesterday for PICC line placement showed small but definite improvement in her lung pattern. Exam Vital signs and Labs for Last 24 Hours: Temp Pulse Resp BP Pulse Ox 98.2 F 79 24 163/91 H 97 02/02/20 08:00 02/02/20 08:00 02/02/20 08:00 02/02/20 08:00 02/02/20 08:00 Laboratory Results - last 24 hr 02/02/20 05:15: WBC 7.0, RBC 3.86 L, Hgb 10.6 L, Hct 35.4 L, MCV 91.7, MCH 27.6, MCHC 30.1 L, RDW 18.4 H, Plt Count 339, MPV 8.2, Neut % (Auto) 67.5, Lymph % (Auto) 22.4, [place] % (Auto) 7.0, Eos % (Auto) 2.1, Baso % (Auto) 1.0, Neut # (Auto) 4.8, Lymph # (Auto) 1.6, [place] # (Auto) 0.5, Eos # (Auto) 0.2, Baso # (Auto) 0.1 02/02/20 05:15: Sodium 154 H*, Potassium 3.6, Chloride 126 H, Carbon Dioxide 20 L, Anion Gap 11.6, BUN 32 H, Creatinine 1.00, Estimated Creat Clear 58, Estimated GFR 53 L, Est GFR ( Amer) 65, Glucose 90, Calcium 8.5 I & O for Last 24 hours: Intake & Output 01/30/20 01/31/20 02/01/20 02/02/20 11:59 11:59 11:59 11:59 Intake Total 340 / 340 0 / 0 851 / 851 2618 / 2618 Output Total 5 / 2075 225 / 225 825 / 825 1075 / 1075 Balance -1735 / -1735 -225 / -225 1543 / 1543 Weight 180 lb 9 oz 180 lb 8 oz 183 lb 9 oz 180 lb Narrative: Patient remains responsive, somewhat talkative but garbled speech. On oxygen mask with reasonable oxygenation. Oropharynx clear, no JVD. Lots of rhonchi and crackles throughout but fairly good and symmetric aeration. Heart rate regular. Abdomen soft. Extremities unchanged. Neurologic exam nonfocal. Assessment and Plan (1) Acute and chronic respiratory failure with hypoxia Status: Acute Category: Medical Code(s): J96.21 - Acute and chronic respiratory failure with hypoxia (2) COVID-19 Status: Acute Category: Medical Code(s): U07.1 - COVID-19 (3) Pneumonia Status: Acute Category: Medical Code(s): J18.9 - Pneumonia, unspecified organism (4) Acute exacerbation of chronic obstructive airways disease Status: Acute Category: Medical Code(s): J44.1 - Chronic obstructive pulmonary disease with (acute) exacerbation (5) Acute kidney injury Status: Acute Category: Medical Code(s): N17.9 - Acute kidney failure, unspecified (6) Obesity (BMI 30.0-34.9) Status: Chronic Category: Medical Code(s): E66.9 - Obesity, unspecified (7) Functional quadriplegia Status: Chronic Category: Medical Code(s): R53.2 - Functional quadriplegia - Assessment and plan all Dx Assessment and Plan for all problems:: Minimal improvement but patient still with significant comorbidities. We will reach out to family today to discuss wishes for tube feedings/CODE ST ATUS continuation. Vancomycin stopped after 9 days. Bacterial cultures all negative. Continue supportive care, ICU stress ulcer and DVT prophylaxis. Continue to wean oxygen as possible. Please note 1 hour critical care time
--- NOTE | 2020-02-02 16:35 | DIET.NUTRFU ---
Addendum entered by Aylin Schmidt 02/02/20 17:17: Pt to have NG tube placed per nursing. Recommend initiating continuous tube feeding regimen of Pulmocare 1.5 at 20ml/hr and increase by 10ml/hr q 8hrs as tolerated to goal rate of 56ml/hr. Pt is meeting fluid needs through IVF, recommend water flushes of 60-120ml for irrigation. This regimen provides 1848kcal, 77g protein, 115g fat, 130g carbohydrate, and 967ml free water. Refeeding syndrome is a possibility. Will monitor closely. Original Note: Pt on day 10 with severely minimal nutrition. She actually was able to eat 25% of breakfast this morning, other than that she has had 0-minimal intake with meds. However, she would not swallow her meds in pudding last night and had to be suctioned. She has been less responsive per nursing. Weight down 3# rt diuresis, back to weight at admit. She has had 2 BM t/o stay, last one past 24hr. Critical Na of 154 this am. BG WNL. Awaiting MD/family decision regarding nutritional support or palliative care, continuing to monitor.
--- NOTE | 2020-02-02 18:28 | HMH.GSCON ---
*Admission Date: 01/25/20 *Reason for consult:: possible PEG *History of present illness: 79yo F seen in consultation from the service of Dr. Hurtado for possible PEG. She has been diagnosed with COVID-19 and pneumonia. Her PO intake is negligible and her respiratory status is tenuous. Review of Systems - Review of Systems Review of systems:: unable to obtain [facility] History Medical History: Reports:: Congestive Heart Failure (Systolic and diastolic dysfunction), Chronic Obstructive Pulmonary Disease (COPD), Home Oxygen, Hyperlipidemia, Hypertension, Renal Disease, Renal Insufficiency (Stage III chronic kidney disease) Denies:: Diabetes Mellitus Type 1, Diabetes Mellitus Type 2 *Have you ever received a pneumonia vaccine?: Yes *Have you received a flu vaccine this season?: Yes Other Medical History: Reports: Anemia, Arthritis (Rheumatoid arthritis. Currently not active, significant joint damage) - *Social History Last grade of school completed: High school graduate Smoking Status: Former smoker Alcohol Intake: never *Occupational Status:: retired Housing: [facility] Household Members: other *Travel in the last 8 weeks: None Family Hx:: Non-contributory Meds Home Medications Medication Instructions Recorded Confirmed Type Acetaminophen [Tylenol 500mg 500 mg PO BID 01/24/20 01/24/20 History tablet] Ascorbic Acid [Vitamin C] 500 mg PO DAILY 01/24/20 01/24/20 History Aspirin [Aspirin 81mg EC Tab] 81 mg PO DAILY 01/24/20 01/24/20 History Azithromycin [Zithromax 250mg 250 mg PO DIRECTED 01/24/20 01/24/20 History tab] Cefdinir [Omnicef 300mg Capsule] 300 mg PO BID 01/24/20 01/24/20 History Celecoxib [CeleBREX 100mg Capsule] 100 mg PO BID 01/24/20 01/24/20 History Cholecalciferol (Vitamin D3) 2 tab PO DAILY 01/24/20 01/24/20 History [Vitamin D3 1,000 Unit Cap] Eslicarbazepine Acetate [Aptiom] 600 mg PO DAILY 01/24/20 01/24/20 History Fluticasone/Vilanterol [Breo 1 inh IH DAILY 01/24/20 01/24/20 History Ellipta 100-25 Mcg INH] Furosemide [Furosemide 40MG tAB*] 40 mg PO DAILY 01/24/20 01/24/20 History Ipratropium/Albuterol Sulfate 3 ml IH Q4H 01/24/20 01/24/20 History [Duoneb 3mL neb] Omeprazole Magnesium [Prilosec Otc 20 mg PO HS 01/24/20 01/25/20 History 20mg Tab] Tramadol HCl [Tramadol 50mg 50 mg PO Q6HP PRN 01/24/20 01/24/20 History Tab] Zinc Gluconate [Zinc] 50 mg PO BID 01/24/20 01/24/20 History dexAMETHasone [Dexamethasone] 4 mg PO BID 01/24/20 01/24/20 History Acetaminophen 500 mg PO Q6HP PRN 01/25/20 01/25/20 History Albuterol Sulfate [Albuterol 2 puffs IH QID 01/25/20 01/25/20 History Sulfate Hfa] Fluoxetine HCl 10 mg PO Q48H 01/25/20 01/25/20 History Allergies Allergy/AdvReac Type Severity Reaction Status Date / Time No Known Allergies Allergy Unverified 01/25/20 08:09 Exam Vital signs and Labs for Last 24 Hours: Temp Pulse Resp BP Pulse Ox 97.3 F L 72 24 125/67 98 02/02/20 15:54 02/02/20 17:10 02/02/20 15:54 02/02/20 15:54 02/02/20 17:10 Laboratory Results - last 24 hr 02/02/20 05:15: WBC 7.0, RBC 3.86 L, Hgb 10.6 L, Hct 35.4 L, MCV 91.7, MCH 27.6, MCHC 30.1 L, RDW 18.4 H, Plt Count 339, MPV 8.2, Neut % (Auto) 67.5, Lymph % (Auto) 22.4, [place] % (Auto) 7.0, Eos % (Auto) 2.1, Baso % (Auto) 1.0, Neut # (Auto) 4.8, Lymph # (Auto) 1.6, [place] # (Auto) 0.5, Eos # (Auto) 0.2, Baso # (Auto) 0.1 02/02/20 05:15: Sodium 154 H*, Potassium 3.6, Chloride 126 H, Carbon Dioxide 20 L, Anion Gap 11.6, BUN 32 H, Creatinine 1.00, Estimated Creat Clear 58, Estimated GFR 53 L, Est GFR ( Amer) 65, Glucose 90, Calcium 8.5 I & O for Last 24 hours: Intake & Output 01/31/20 02/01/20 02/02/20 02/03/20 11:59 11:59 11:59 11:59 Intake Total 0 / 0 851 / 851 2618 / 2618 0 / 0 Output Total 225 / 225 825 / 825 1075 / 1075 825 / 825 Balance -225 / -225 1543 / 1543 -825 / -825 Weight 180 lb 8 oz 183 lb 9 oz 180 lb - Constitutional Comments:
--- NOTE | 2020-02-02 18:49 | PC.NURSE ---
PT IS RESTING IN BED WITH BIPAP ON AT THIS TIME. PT WAS ON 50% VENTI MASK SINCE YESTERDAY AT 1400. O2 SATURATION MAINTAINED 92-96%. WHEN IT WAS DECIDED THAT PT WOULD NEED AN NG TUBE FOR NUTRITION PURPOSES PT'S DAUGHTER WAS NOTIFIED TO ASK IF SHE WOULD BE OKAY WITH IT AND SHE STATED SHE FELT IT WAS NECESSARY FOR HER MOTHER AT THIS TIME TO HAVE ONE SO SHE COULD GET SOME KIND OF NOURISHMENT. PT RECEIVED A DOSE OF ATIVAN BEFORE ATTEMPTING NG INSERTION. CIRCULATION WORKER WAS CALLED FOR FEEDING RECOMMENDATIONS. DURING INSERTION PT'S O2 SATURATION DROPPED TO THE 40'S, PT WAS BLUE IN COLOR AND WAS UNABLE TO RESPOND TO A STERNAL RUB. O2 SATURATION WAS NOT IMPROVING WITH 50% VENTI. RT WAS NOTIFIED AND ARRIVED TO PT'S ROOM STAT TO PUT PT BACK ON BIPAP AND WITHIN SECONDS O2 SATURATION INCREASED. PT IS NOW ON BIPAP 40% WITH AN O2 SATURATION AT 93%. BP 113/71. HR 59. NOTIFIED PCP AND EVENTS THAT HAPPENED WHILE INSERTING THE TUBE AND HE STATED TO NOTIFY PT'S DAUGHTER TO LET HER KNOW. PT HAS BEEN TURNED AND REPOSITIONED T/O THE SHIFT. HEELS ARE FLOATED ON PILLOWS. ORAL CARE PROVIDED FREQUENTLY. BATH AND BED CHANGE THIS SHIFT. PICC TO THE SAMARA DRESSING CHANGED THIS SHIFT. WILL CONTINUE TO MONITOR.
[2020-02-03] VITALS (13 sets, daily range): BP systolic 133–171; BP diastolic 52–100; PULSE 24–94; RESP 20–26; TEMP 35.7–37.3; O2SAT 90–97; BMI 34.9
--- NOTE | 2020-02-03 04:40 | PC.NURSE ---
pt has done well this shift. pt talkative but has garbled speech so its hard to understand. pt has been turned q2hr, and oral care given q2hr. pt received a bath this shift. pt cont. on bipap at 40%, o2 sat low to mid 90's. vss. will cont. to monitor.
[2020-02-03 05:26] LABS: Chloride 125 mmol/L (98-107)
[2020-02-03 05:27] LABS: Potassium 3.7 mmoL/L (3.5-5.1)
[2020-02-03 05:29] LABS: Blood Urea Nitrogen 27 mg/dl (7-17); Creatinine Clearance Estimated 61 mL/min (50-200); Estimated Glomerular Filt Rate 60 ml/min (>60); GFR (African American) 73 ML/MIN (>60)
[2020-02-03 05:30] LABS: Anion Gap 9.7 mEq/L (5-15); Calcium 8.4 mg/dl (8.4-10.2); Carbon Dioxide 20 mmol/L (22.0-30.0); Glucose 86 mg/dl (74-100)
[2020-02-03 05:35] LABS: Basophils # 0.1 K/mm3 (0-0.2); Eosinophils # 0.1 K/mm3 (0.0-0.4); Eosinophils % 1.6 % (0.1-12.0); Hematocrit 33.4 % (37.0-47.0); Hemoglobin 10.5 g/dL (12.2-16.2); Lymphocytes # 1.4 K/mm3 (0.7-4.5); Lymphocytes % 17.9 % (10-50); Mean Corpuscular HGB Conc 31.5 g/dL (31.8-35.4); Mean Corpuscular Hemoglobin 29.6 pg (27.0-31.2); Mean Platelet Volume 8.5 fl (7.4-10.4); Monocytes # 0.5 K/mm3 (0.1-1.0); Monocytes % 6.7 % (1.7-9.3); Neutrophils # 5.8 K/mm3 (1.8-7.8); Neutrophils % 72.9 % (37.0-80.0); Platelet Count 301 K/mm3 (142-424); Red Blood Count 3.56 M/mm3 (4.20-5.40); Red Cell Distribution Width 18.8 % (11.5-17.5)
[2020-02-03 05:45] LABS: Sodium 151 mmol/L (136-145)
--- NOTE | 2020-02-03 06:27 | PC.NURSE ---
critical sodium reported to dr. arrieta.
--- NOTE | 2020-02-03 07:17 | HMH.ACPN2 ---
Internal Medicine - PN: Subj *Date: 02/03/20 *Time: 09:15 Interval history: Patient remains hemodynamically stable, afebrile overnight. Tolerating Ventimask 50% overnight without complication. Saturations in the low 90s. Intolerant of attempted placement of NG tube. Has not been able to get any enteral nutrition. Remains hypernatremic this morning. Patient's condition remains serious in the setting of 50% oxygen requirement and intolerance of oral intake. Exam Vital signs and Labs for Last 24 Hours: Temp Pulse Resp BP Pulse Ox 98.8 F 89 24 141/81 H 91 L 02/03/20 03:30 02/03/20 03:30 02/03/20 03:30 02/03/20 03:30 02/03/20 03:30 Laboratory Results - last 24 hr 02/03/20 05:00: WBC 8.0, RBC 3.56 L, Hgb 10.5 L, Hct 33.4 L, MCV 94.0, MCH 29.6, MCHC 31.5 L, RDW 18.8 H, Plt Count 301, MPV 8.5, Neut % (Auto) 72.9, Lymph % (Auto) 17.9, [place] % (Auto) 6.7, Eos % (Auto) 1.6, Baso % (Auto) 1.0, Neut # (Auto) 5.8, Lymph # (Auto) 1.4, [place] # (Auto) 0.5, Eos # (Auto) 0.1, Baso # (Auto) 0.1 02/03/20 05:00: Sodium 151 H*, Potassium 3.7, Chloride 125 H, Carbon Dioxide 20 L, Anion Gap 9.7, BUN 27 H, Creatinine 0.90, Estimated Creat Clear 61, Estimated GFR 60, Est GFR ( Amer) 73, Glucose 86, Calcium 8.4 I & O for Last 24 hours: Intake & Output 01/31/20 02/01/20 02/02/20 02/03/20 23:59 23:59 23:59 23:59 Intake Total 851 / 851 2258 / 2258 360 / 360 2418 / 2418 Output Total 600 / 600 725 / 725 1400 / 1675 600 / 600 Balance 251 / 251 1533 / 1533 -1040 / -1315 1818 / 1818 Weight 81.873 kg 83.263 kg 81.647 kg 85.956 kg Narrative: Patient remains responsive, somewhat talkative but garbled speech. On oxygen mask with reasonable oxygenation. Oropharynx clear, no JVD. Lots of rhonchi and crackles throughout but fairly good and symmetric aeration. Heart rate regular. Abdomen soft. Extremities unchanged. Neurologic exam nonfocal. Assessment and Plan (1) Acute and chronic respiratory failure with hypoxia Status: Acute Category: Medical Code(s): J96.21 - Acute and chronic respiratory failure with hypoxia (2) COVID-19 Status: Acute Category: Medical Code(s): U07.1 - COVID-19 (3) Pneumonia Status: Acute Category: Medical Code(s): J18.9 - Pneumonia, unspecified organism (4) Acute exacerbation of chronic obstructive airways disease Status: Acute Category: Medical Code(s): J44.1 - Chronic obstructive pulmonary disease with (acute) exacerbation (5) Acute kidney injury Status: Acute Category: Medical Code(s): N17.9 - Acute kidney failure, unspecified (6) Obesity (BMI 30.0-34.9) Status: Chronic Category: Medical Code(s): E66.9 - Obesity, unspecified (7) Functional quadriplegia Status: Chronic Category: Medical Code(s): R53.2 - Functional quadriplegia (8) Malnutrition Status: Acute Category: Medical Code(s): E46 - Unspecified protein-calorie malnutrition (9) Hypernatremia Status: Acute Category: Medical Code(s): E87.0 - Hyperosmolality and hypernatremia - Assessment and plan all Dx Assessment and Plan for all problems:: No improvement in past 24 hours. patient still with significant comorbidities. Unable to proceed with enteral nutrition as she was intolerant of NG tube. G-tube would be contraindicated given her comorbidities, severe debility, lack of evidence to show improvement in quality of life. We will reach out to family to discuss wishes for tube feedings/CODE STATUS continuation. Initiate D5 half-normal saline at a rate of 100 to address free water deficit and hypernatremia. Will monitor with repeat labs this afternoon. Continue supportive care, ICU stress ulcer and DVT prophylaxis. Continue to wean oxygen as possible. Please note 1 hour critical care time
--- NOTE | 2020-02-03 11:58 | PC.NURSE ---
spoke with pharmacy d5 1/2 ns is compatible with cefipime
--- NOTE | 2020-02-03 15:20 | XR_ITS ---
PROCEDURE: XR CHEST PORTABLE Referring Doctor: Marshall Roy Patient Age:79Y CLINICAL HISTORY: NG tube placement. Pneumonia. Respiratory difficulty COMPARISON: CR XR CHEST PORTABLE from 01/27/2020 CR XR CHEST PORTABLE from 01/30/2020 CR XR CHEST PORTABLE PICC PLAC from 02/01/2020 FINDINGS: The NG tube loops within the patient's neck and does not pass into the esophagus. I understand from our technologist Gustavo; that it was subsequently removed and will be again inserted with follow-up image to be be performed if it is again inserted PICC line enters from the left with tip at the junction of brachycephalic vein and SVC but satisfactory position but stable. . The patchy area of infiltrate at right lung base now obscures the right hemidiaphragm on today's study. This may be in part due to the less optimal inspiration today. Also suggestion of a subtle small patchy area of infiltrate towards right mid lung.. Minimal streaky infiltrate left infrahilar region towards left base of again evident.. There is suggestion of a subtle diffuse interstitial coarsening reflecting interstitial pneumonitis versus of mild vascular congestion. IMPRESSION: 1..NG tube loops at the patient's neck. Understand it was removed and will be reinserted 2..less optimal inspiration today accentuates the basilar infiltrates. 3..Right basilar infiltrate persist and obscures the right hemidiaphragm on today's study but question small additional patchy infiltrate right mid lung. Streaky infiltrate left infrahilar region slightly more evident. Suggestion of subtle background of additional diffuse interstitial infiltrate bilaterally particularly towards the lower lobes. Dictated by: Mio Ramirez MD 02/03/2020 16:16 Mio Ramirez MD in [facility] 02/03/2020 16:16
--- NOTE | 2020-02-03 17:23 | XR_ITS ---
PROCEDURE: XR CHEST PORTABLE Referring Doctor: Trey Hurtado Patient Age:79Y CLINICAL HISTORY: EVALUATE OG TUBE PLACEMENT Multiple previous chest films for comparison include CXR earlier today and and January 31 COMPARISON: No exams were available for comparison FINDINGS: AP portable CXR History states checking NG-tube placement but I do not see the NG tube on this exam. Please correlate clinically. PICC line enters from the left with tip at the junction of brachiocephalic vein and SVC.-satisfactory position We again see the infiltrate at the right lower lobe most pronounced at the right base partially obscuring the right hemidiaphragm-this is similar to previous exam... There is better inspiration today and with this I do not see the patchy infiltrate at the right mid lung question on previous study Left chest but minimal patchy infiltrate/atelectasis left base retrocardiac region. IMPRESSION: 1.. No NG tube evident but correlation clinically but PICC line remains stable position 2..Right lower lobe pneumonia persists similar to earlier studies. If anything slight better expansion right midlung on this study 3. Minimal atelectasis with questionable minimal infiltrate medial left base Dictated by: Mio Ramirez MD 02/03/2020 18:15 Mio Ramirez MD in [facility] 02/03/2020 18:15
--- NOTE | 2020-02-03 18:12 | PC.NURSE ---
pt has been on venti 50% with o2 sat around 95%. ng tube attempted twice this shift with no success per md request. daughter was notified that attempts were made and results. bp was elevated at one point and prn med given with effect. picc line patent and infusing per order. segal in place and draining clear yellow urine. vss at this time. call light reach. oral care given throughout shift. mucus plug removed from back of throat with respiratory. will continue to monitor.
[2020-02-03 19:40] LABS: Chloride 122 mmol/L (98-107); Potassium 3.6 mmoL/L (3.5-5.1); Sodium 149 mmol/L (136-145)
[2020-02-03 19:43] LABS: Anion Gap 8.6 mEq/L (5-15); Blood Urea Nitrogen 22 mg/dl (7-17); Carbon Dioxide 22 mmol/L (22.0-30.0); Creatinine Clearance Estimated 61 mL/min (50-200); Estimated Glomerular Filt Rate 60 ml/min (>60); GFR (African American) 73 ML/MIN (>60)
[2020-02-03 19:44] LABS: Calcium 8.1 mg/dl (8.4-10.2); Glucose 160 mg/dl (74-100)
[2020-02-04] VITALS (13 sets, daily range): BP systolic 126–174; BP diastolic 64–88; PULSE 62–82; RESP 22–26; TEMP 36.1–36.8; O2SAT 92–97; BMI 33.7
--- NOTE | 2020-02-04 04:06 | PC.NURSE ---
pt has been more alert this shift. still unable to understand words. pt has been on 50% venti mas t/o shift. pt has tolerated well with sats above 90%. pt was provided oral care q2hr and as needed. pt turned/repositioned q2hr. pt has had two bowel movements this shift. Logan catheter in place, patent, draining clear yellow urine. PICC to LUE is patent with good blood return. vss. will cont. to monitor.
--- NOTE | 2020-02-04 04:52 | PC.NURSE ---
Patient placed back on bipap at roughly 0445. Was resting well and began to desat while on the ventimask to the mid 80's. Placed on bipap at 40%, currently sating at 97%. Will continue to monitor.
[2020-02-04 06:30] LABS: Basophils # 0.1 K/mm3 (0-0.2); Basophils % 0.8 % (0.1-2.0); Eosinophils # 0.1 K/mm3 (0.0-0.4); Eosinophils % 1.9 % (0.1-12.0); Hemoglobin 9.7 g/dL (12.2-16.2); Lymphocytes # 1.4 K/mm3 (0.7-4.5); Lymphocytes % 23.5 % (10-50); Mean Corpuscular HGB Conc 29.4 g/dL (31.8-35.4); Mean Corpuscular Hemoglobin 27.5 pg (27.0-31.2); Mean Corpuscular Volume 93.6 fl (81-99); Mean Platelet Volume 8.4 fl (7.4-10.4); Monocytes # 0.4 K/mm3 (0.1-1.0); Monocytes % 6.1 % (1.7-9.3); Neutrophils # 4.1 K/mm3 (1.8-7.8); Neutrophils % 67.7 % (37.0-80.0); Platelet Count 273 K/mm3 (142-424); Red Blood Count 3.53 M/mm3 (4.20-5.40); Red Cell Distribution Width 18.4 % (11.5-17.5); White Blood Count 6.1 K/mm3 (4.8-10.8)
[2020-02-04 06:34] LABS: Chloride 121 mmol/L (98-107); Potassium 3.1 mmoL/L (3.5-5.1); Sodium 149 mmol/L (136-145)
[2020-02-04 06:36] LABS: Blood Urea Nitrogen 19 mg/dl (7-17); Creatinine Clearance Estimated 59 mL/min (50-200); Estimated Glomerular Filt Rate 69 ml/min (>60); GFR (African American) 84 ML/MIN (>60)
[2020-02-04 06:37] LABS: Alanine Aminotransferase 18 U/L (12-78); Albumin Level 2.8 g/dl (3.5-5.0); Albumin/Globulin Ratio 0.8 (1.1-1.8); Alkaline Phosphatase 146 U/L (38-126); Anion Gap 7.1 mEq/L (5-15); Aspartate Amino Transferase 26 U/L (14-36); Bilirubin,Total 0.5 mg/dl (0.2-1.3); Calcium 8.2 mg/dl (8.4-10.2); Carbon Dioxide 24 mmol/L (22.0-30.0); Globulin 3.3 g/dL (1.3-3.2); Glucose 111 mg/dl (74-100); Magnesium 1.7 mg/dl (1.6-2.3); Total Protein,Serum 6.1 g/dl (6.3-8.2)
--- NOTE | 2020-02-04 08:31 | HMH.ACPN2 ---
Internal Medicine - PN: Subj *Date: 02/04/20 *Time: 08:31 Interval history: Patient has improved over the past 24 hours, has been able to be on Venturi facemask instead of BiPAP and seems to be doing better with this. She is able to be more verbal and is much more talkative this morning. X-rays from yesterday reviewed and are improving. Exam Vital signs and Labs for Last 24 Hours: Temp Pulse Resp BP Pulse Ox 97.9 F 71 22 146/68 H 97 02/04/20 07:55 02/04/20 07:55 02/04/20 07:55 02/04/20 07:55 02/04/20 07:55 Laboratory Results - last 24 hr 02/03/20 19:00: Sodium 149 H, Potassium 3.6, Chloride 122 H, Carbon Dioxide 22, Anion Gap 8.6, BUN 22 H, Creatinine 0.90, Estimated Creat Clear 61, Estimated GFR 60, Est GFR ( Amer) 73, Glucose 160 H D, Calcium 8.1 L 02/04/20 06:00: WBC 6.1, RBC 3.53 L, Hgb 9.7 L, Hct 33.0 L, MCV 93.6, MCH 27.5, MCHC 29.4 L, RDW 18.4 H, Plt Count 273, MPV 8.4, Neut % (Auto) 67.7, Lymph % (Auto) 23.5, [place] % (Auto) 6.1, Eos % (Auto) 1.9, Baso % (Auto) 0.8, Neut # (Auto) 4.1, Lymph # (Auto) 1.4, [place] # (Auto) 0.4, Eos # (Auto) 0.1, Baso # (Auto) 0.1 02/04/20 06:00: Sodium 149 H, Potassium 3.1 L, Chloride 121 H, Carbon Dioxide 24, Anion Gap 7.1, BUN 19 H, Creatinine 0.80, Estimated Creat Clear 59, Estimated GFR 69, Est GFR ( Amer) 84, Glucose 111 H D, Calcium 8.2 L, Magnesium 1.7, Total Bilirubin 0.5, AST 26, ALT 18, Alkaline Phosphatase 146 H, Total Protein 6.1 L, Albumin 2.8 L, Globulin 3.3 H, Albumin/Globulin Ratio 0.8 L I & O for Last 24 hours: Intake & Output 02/01/20 02/02/20 02/03/20 02/04/20 11:59 11:59 11:59 11:59 Intake Total 851 / 851 2618 / 2618 2418 / 2418 1010 / 1010 Output Total 825 / 825 1075 / 1075 1425 / 1425 225 / 225 Balance 1543 / 1543 993 / 993 785 / 785 Weight 183 lb 9 oz 180 lb 189 lb 8 oz 183 lb 7 oz Narrative: Patient is alert, responsive, able to talk in 2-3 word sentences. No visible breathlessness. Lungs have better air movement. Lots of rhonchi but symmetric. Heart rate regular. Abdomen soft, perfusion is good. Neurologic exam nonfocal. Extremity changes from arthritis are noted. Assessment and Plan (1) Acute and chronic respiratory failure with hypoxia Status: Acute Category: Medical Code(s): J96.21 - Acute and chronic respiratory failure with hypoxia (2) COVID-19 Status: Acute Category: Medical Code(s): U07.1 - COVID-19 (3) Pneumonia Status: Acute Category: Medical Code(s): J18.9 - Pneumonia, unspecified organism (4) Acute exacerbation of chronic obstructive airways disease Status: Acute Category: Medical Code(s): J44.1 - Chronic obstructive pulmonary disease with (acute) exacerbation (5) Acute kidney injury Status: Acute Category: Medical Code(s): N17.9 - Acute kidney failure, unspecified (6) Obesity (BMI 30.0-34.9) Status: Chronic Category: Medical Code(s): E66.9 - Obesity, unspecified (7) Functional quadriplegia Status: Chronic Category: Medical Code(s): R53.2 - Functional quadriplegia (8) Malnutrition Status: Acute Category: Medical Code(s): E46 - Unspecified protein-calorie malnutrition - Assessment and plan all Dx Assessment and Plan for all problems:: Overall improving. Chest x-ray is improving, labs stable. Off antibiotics. Continue steroids, ICU support, DVT and stress ulcer prophylaxis, trial of oral feeding today cautiously. I encourage patient to try to get food and fluids and since NG/OG tube seems to not be an option at this point. Our critical care time including record and image review
--- NOTE | 2020-02-04 16:56 | DIET.NUTRFU ---
Pt continues with minimal intakes and unfortunately could not have NG placed successfully. Pt without diet order but is able to have pureed foods and nectar thick liquids. RN continued cueing/encouragement to best ability appreciated. Please continue to offer supplements, nourishments t/o shift. Dietary will send as requested.
--- NOTE | 2020-02-04 18:33 | PC.NURSE ---
PT IS RESTING IN BED. PT HAS BEEN MORE ALERT THIS SHIFT. PT ATTEMPTS TO ANSWER SIMPLE QUESTIONS BUT SPEECH IS VERY MUMBLED WHICH MAKES IT DIFFICULT TO UNDERSTAND. O2 SATURATION HAS MAINTAINED 95-99% ON 50% VENTI MASK T/O MOST OF THE SHIFT. WHEN SPEECH CAME TO EVALUATE PT AT 1645 SHE WAS SWITCHED OVER TO NC AT 4 L AND PT HAS MAINTAINED AN O2 SATURATION 92-96%. PT COOPERATED WITH SPEECH FAIRLY WELL AND SEVERAL ATTEMPTS WAS MADE BUT PT WAS UNABLE TO SWALLOW. PT POCKETED EVERY CONSISTENCY IN HER RT CHEEK EXCEPTION FOR THE CHOCOLATE PUDDING WHICH PT STATED SHE DID NOT LIKE AND SPIT OUT. PCP WAS NOTIFIED AND STATED TO INCREASE IVF RATE TO 150ML'S/HR. FAMILY TALKED ABOUT TPN AND PCP STATED THAT TPN WOULD NOT BE SAFE FOR PT. PT REQUIRED A PRN DOSE OF LABETALOL THIS SHIFT. TURNED AND REPOSITIONED IN BED. ORAL CARE PROVIDED FREQUENTLY. WILL CONTINUE TO MONITOR.
[2020-02-05] VITALS (9 sets, daily range): BP systolic 134–186; BP diastolic 62–91; PULSE 62–77; RESP 20–24; TEMP 35.9–37; O2SAT 90–96; BMI 35.2
[2020-02-05 05:32] LABS: Chloride 116 mmol/L (98-107); Sodium 145 mmol/L (136-145)
[2020-02-05 05:35] LABS: Blood Urea Nitrogen 15 mg/dl (7-17); Creatinine Clearance Estimated 59 mL/min (50-200); Estimated Glomerular Filt Rate 81 ml/min (>60); GFR (African American) 97 ML/MIN (>60)
[2020-02-05 05:36] LABS: Anion Gap 5.9 mEq/L (5-15); Calcium 7.5 mg/dl (8.4-10.2); Carbon Dioxide 26 mmol/L (22.0-30.0); Glucose 103 mg/dl (74-100)
[2020-02-05 05:41] LABS: Potassium 2.9 mmoL/L (3.5-5.1)
[2020-02-05 05:44] LABS: Basophils % 0.6 % (0.1-2.0); Eosinophils # 0.1 K/mm3 (0.0-0.4); Eosinophils % 1.5 % (0.1-12.0); Hematocrit 33.3 % (37.0-47.0); Hemoglobin 10.5 g/dL (12.2-16.2); Lymphocytes # 1.6 K/mm3 (0.7-4.5); Lymphocytes % 26.7 % (10-50); Mean Corpuscular HGB Conc 31.5 g/dL (31.8-35.4); Mean Corpuscular Hemoglobin 28.8 pg (27.0-31.2); Mean Corpuscular Volume 91.6 fl (81-99); Mean Platelet Volume 9.4 fl (7.4-10.4); Monocytes # 0.5 K/mm3 (0.1-1.0); Monocytes % 8.1 % (1.7-9.3); Neutrophils # 3.8 K/mm3 (1.8-7.8); Neutrophils % 63.1 % (37.0-80.0); Platelet Count 257 K/mm3 (142-424); Red Blood Count 3.64 M/mm3 (4.20-5.40); Red Cell Distribution Width 18.8 % (11.5-17.5); White Blood Count 6.1 K/mm3 (4.8-10.8)
--- NOTE | 2020-02-05 06:07 | PC.NURSE ---
Pt has rested well this shift. +1 pitting edema noted to bilat lower extremities.Scattered coarse crackles heard t/o all lung bases. No cough noted this shift, pt continues to tolerate 4L NC appropriately. Humidification added to o2 this shift. Oral care has been provided t/o this shift. Pt has been turned q2h this shift. Pt continues to not tolerate PO meds. No other acute changes or complaints at this time.
--- NOTE | 2020-02-05 08:49 | PC.NURSE ---
RN aware of elevated bp.
--- NOTE | 2020-02-05 11:32 | HMH.ACPN2 ---
Internal Medicine - PN: Subj *Date: 02/05/20 *Time: 11:32 Interval history: On the positive side her oxygen requirement continues to be stable/improved and she has been able to tolerate peers of nasal cannula which is vastly improved over the past couple of days. On the negative side nutrition has been a problem. She is pocketing all of her food on multiple trials and another NG trial today that I witnessed with really good and intense effort from the nursing staff was a failure with 1 intubation of her trachea and another coiling of the tube in her left nostril. The right nostril is simply impossible to pass a tube down. Exam Vital signs and Labs for Last 24 Hours: Temp Pulse Resp BP Pulse Ox 97.6 F 77 22 171/83 H 96 02/05/20 08:00 02/05/20 08:00 02/05/20 08:00 02/05/20 08:00 02/05/20 08:00 Laboratory Results - last 24 hr 02/05/20 04:21: WBC 6.1, RBC 3.64 L, Hgb 10.5 L, Hct 33.3 L, MCV 91.6, MCH 28.8, MCHC 31.5 L, RDW 18.8 H, Plt Count 257, MPV 9.4, Neut % (Auto) 63.1, Lymph % (Auto) 26.7, [place] % (Auto) 8.1, Eos % (Auto) 1.5, Baso % (Auto) 0.6, Neut # (Auto) 3.8, Lymph # (Auto) 1.6, [place] # (Auto) 0.5, Eos # (Auto) 0.1, Baso # (Auto) 0.0 02/05/20 04:21: Sodium 145, Potassium 2.9 L*, Chloride 116 H, Carbon Dioxide 26, Anion Gap 5.9, BUN 15, Creatinine 0.70, Estimated Creat Clear 59, Estimated GFR 81, Est GFR ( Amer) 97, Glucose 103 H, Calcium 7.5 L I & O for Last 24 hours: Intake & Output 02/02/20 02/03/20 02/04/20 02/05/20 11:59 11:59 11:59 11:59 Intake Total 2618 / 2618 2418 / 2418 1010 / 1010 3622 / 3622 Output Total 1075 / 1075 1425 / 1425 225 / 225 450 / 450 Balance 1543 / 1543 993 / 993 785 / 785 3172 / 3172 Weight 180 lb 189 lb 8 oz 183 lb 7 oz 191 lb 9 oz Narrative: Patient is much more alert, responsive, verbal, recognizes me. Is minimally cooperative to nursing interventions. Heart rate regular, blood pressure acceptable. Lungs with rhonchorous air movement but symmetric and well-expanded. Abdomen soft, no rash, neurologic exam is improving. No perfusion deficit of extremities, old arthritic changes noted. Assessment and Plan (1) Acute and chronic respiratory failure with hypoxia Status: Acute Category: Medical Code(s): J96.21 - Acute and chronic respiratory failure with hypoxia (2) COVID-19 Status: Acute Category: Medical Code(s): U07.1 - COVID-19 (3) Pneumonia Status: Acute Category: Medical Code(s): J18.9 - Pneumonia, unspecified organism (4) Acute exacerbation of chronic obstructive airways disease Status: Acute Category: Medical Code(s): J44.1 - Chronic obstructive pulmonary disease with (acute) exacerbation (5) Acute kidney injury Status: Acute Category: Medical Code(s): N17.9 - Acute kidney failure, unspecified (6) Obesity (BMI 30.0-34.9) Status: Chronic Category: Medical Code(s): E66.9 - Obesity, unspecified (7) Functional quadriplegia Status: Chronic Category: Medical Code(s): R53.2 - Functional quadriplegia (8) Malnutrition Status: Acute Category: Medical Code(s): E46 - Unspecified protein-calorie malnutrition - Assessment and plan all Dx Assessment and Plan for all problems:: Overall patient is improving. Nutrition is her main obstacle. If she is unable to swallow food tomorrow we will reconsult surgery for PEG tube placement as I think she would be able to tolerate anesthesia much better now that her lung status has improved. Continue supportive care in the intensive care unit environment with stress ulcer and DVT prophylaxis. Please note 1 hour critical care time and direct patient contact.
--- NOTE | 2020-02-05 17:44 | PC.NURSE ---
Took over care at 1400, pt has done well. Remains on 4 L NC- 95% at this time. Alert to self. Did have mod sz loose bm.. PICC to SAMARA with fluids infusing per mar. PICC dsg changed and site looks good. RR even-unlabored currently. Remains safe, seizure pads in place. VSS. Last pressure 139/70. Will cont to mx.
[2020-02-06] VITALS (14 sets, daily range): BP systolic 116–186; BP diastolic 67–94; PULSE 65–74; RESP 19–22; TEMP 36.3–36.8; O2SAT 92–94; BMI 34.6
--- NOTE | 2020-02-06 02:30 | PC.NURSE ---
No acute changes. Pt is alert to self and interacting with staff. She remains on 4L O2 NC with O2 sats in mid 90s. Has tolerated well. Rhonchi noted to lung bustos with scattered wheezing. F/C draining to bedside with cloudy, yellow urine. Pt had small incontinent BM this shift. Bed bath and linens changed. Pt turned and repositioned. VSS. Will continue to monitor.
--- NOTE | 2020-02-06 02:58 | PC.NURSE ---
O2 NC titrated to 3L.
--- NOTE | 2020-02-06 05:29 | PC.NURSE ---
Pt's BP was hypertensive this AM. Labetalol 10 mg IV administered. Current BP is 138/67, HR 60, SpO2 92% 3L O2 NC.
[2020-02-06 06:10] LABS: Basophils % 0.6 % (0.1-2.0); Eosinophils # 0.1 K/mm3 (0.0-0.4); Eosinophils % 1.8 % (0.1-12.0); Hematocrit 35.7 % (37.0-47.0); Hemoglobin 11.2 g/dL (12.2-16.2); Lymphocytes # 1.5 K/mm3 (0.7-4.5); Lymphocytes % 23.4 % (10-50); Mean Corpuscular HGB Conc 31.3 g/dL (31.8-35.4); Mean Corpuscular Hemoglobin 28.5 pg (27.0-31.2); Mean Platelet Volume 9.2 fl (7.4-10.4); Monocytes # 0.5 K/mm3 (0.1-1.0); Neutrophils # 4.1 K/mm3 (1.8-7.8); Neutrophils % 66.2 % (37.0-80.0); Platelet Count 250 K/mm3 (142-424); Red Blood Count 3.92 M/mm3 (4.20-5.40); Red Cell Distribution Width 19.2 % (11.5-17.5); White Blood Count 6.2 K/mm3 (4.8-10.8)
[2020-02-06 06:18] LABS: Chloride 116 mmol/L (98-107); Sodium 142 mmol/L (136-145)
[2020-02-06 06:19] LABS: Potassium 3.3 mmoL/L (3.5-5.1)
[2020-02-06 06:22] LABS: Anion Gap 4.3 mEq/L (5-15); Blood Urea Nitrogen 11 mg/dl (7-17); Calcium 7.3 mg/dl (8.4-10.2); Carbon Dioxide 25 mmol/L (22.0-30.0); Creatinine Clearance Estimated 60 mL/min (50-200); Estimated Glomerular Filt Rate 96 ml/min (>60); GFR (African American) 116 ML/MIN (>60); Glucose 112 mg/dl (74-100)
--- NOTE | 2020-02-06 10:37 | HMH.ACPN2 ---
Internal Medicine - PN: Subj *Date: 02/06/20 *Time: 10:37 Interval history: Weaned down to 3 L nasal cannula, O2 saturations 93%, blood pressure acceptable, pulse rate 68. Patient is talkative. Continues to have trouble swallowing food and pockets food. NG trial placement unsuccessful yesterday. Exam Vital signs and Labs for Last 24 Hours: Temp Pulse Resp BP Pulse Ox 98.3 F 66 22 137/83 94 L 02/06/20 07:41 02/06/20 07:41 02/06/20 07:41 02/06/20 07:41 02/06/20 07:41 Laboratory Results - last 24 hr 02/06/20 05:25: WBC 6.2, RBC 3.92 L, Hgb 11.2 L, Hct 35.7 L, MCV 91.0, MCH 28.5, MCHC 31.3 L, RDW 19.2 H, Plt Count 250, MPV 9.2, Neut % (Auto) 66.2, Lymph % (Auto) 23.4, [place] % (Auto) 8.0, Eos % (Auto) 1.8, Baso % (Auto) 0.6, Neut # (Auto) 4.1, Lymph # (Auto) 1.5, [place] # (Auto) 0.5, Eos # (Auto) 0.1, Baso # (Auto) 0.0 02/06/20 05:25: Sodium 142, Potassium 3.3 L, Chloride 116 H, Carbon Dioxide 25, Anion Gap 4.3 L, BUN 11 D, Creatinine 0.60, Estimated Creat Clear 60, Estimated GFR 96, Est GFR ( Amer) 116, Glucose 112 H, Calcium 7.3 L I & O for Last 24 hours: Intake & Output 02/03/20 02/04/20 02/05/20 02/06/20 11:59 11:59 11:59 11:59 Intake Total 2418 / 2418 1010 / 1010 3622 / 3622 1000 / 1000 Output Total 1425 / 1425 225 / 225 450 / 450 1100 / 1100 Balance 993 / 993 785 / 785 3172 / 3172 -100 / -100 Weight 189 lb 8 oz 183 lb 7 oz 191 lb 9 oz 188 lb 3 oz Narrative: Patient is pleasant and alert, lungs have good air movement, heart rate regular. Abdomen soft, extremities without perfusion problems. Reviewed labs and discussed case with nursing staff. Assessment and Plan (1) Acute and chronic respiratory failure with hypoxia Status: Acute Category: Medical Code(s): J96.21 - Acute and chronic respiratory failure with hypoxia (2) COVID-19 Status: Acute Category: Medical Code(s): U07.1 - COVID-19 (3) Pneumonia Status: Acute Category: Medical Code(s): J18.9 - Pneumonia, unspecified organism (4) Acute exacerbation of chronic obstructive airways disease Status: Acute Category: Medical Code(s): J44.1 - Chronic obstructive pulmonary disease with (acute) exacerbation (5) Acute kidney injury Status: Acute Category: Medical Code(s): N17.9 - Acute kidney failure, unspecified (6) Obesity (BMI 30.0-34.9) Status: Chronic Category: Medical Code(s): E66.9 - Obesity, unspecified (7) Functional quadriplegia Status: Chronic Category: Medical Code(s): R53.2 - Functional quadriplegia (8) Malnutrition Status: Acute Category: Medical Code(s): E46 - Unspecified protein-calorie malnutrition - Assessment and plan all Dx Assessment and Plan for all problems:: Improvement, hypernatremia is improved, continue D5 half-normal, increase rate slightly to try to give her some calories. Patient's big problem right now is nutritional support. Simply cannot swallow food as she pockets almost every consistency. We will try a sippy cup today to see if she will be able to drink something, as she is unable to use a straw. I do believe patient will require PEG tube placement in the next 48 hours and less she can start eating or drinking. We will get surgery back involved. Patient's oxygenation status is so much better that her risk of the procedure has gone down quite a bit. Risk of infecting surgical staff is also lower as patient has been in hospital since January 23 and her positive test was before that, technically she is outside the 10 to 14-day window of infectivity. Please note 1 hour critical care time.
--- NOTE | 2020-02-06 15:08 | PC.NURSE ---
PT IS RESTING IN BED. ALERT AND ORIENTED X1. PT HAS BEEN MAKING CONVERSATION EVER SINCE THIS MORNING AND BY THE AFTERNOON WAS EVEN ABLE TO FOLLOW SIMPLE COMMANDS. PT WAS ABLE TO EAT AN ENTIRE CONTAINER OF PUDDING AND WAS DRINKING ORANGE JUICE AND ENSURE THROUGH A STRAW. PT DOES REQUIRE ENCOURAGEMENT TO EAT AND DRINK. TURNED AND REPOSITIONED IN BED. ORAL CARE PROVIDED. LUNG SOUNDS HAVE SCATTERED RHONCHI. ABDOMEN SOFT/NON TENDER WITH ACTIVE BOWEL SOUNDS. PT HAD A LARGE LOOSE BOWEL MOVEMENT THIS MORNING. O2 SATURATION HAS MAINTAINED 92-95% ON 3 L NC. VSS. WILL CONTINUE TO MONITOR.
--- NOTE | 2020-02-06 16:03 | DIET.NUTRFU ---
Pt with mentation improvement today, able to eat some pudding and drink ensure and oj. D5 increased for nutrition as well. NG unsuccessful. Pureed, nectar thick liquids diet with ensure TID given. Continued minimal intakes predicted, pt may continue to have anything desired by request/RN offer. (Please observe dysphagia diet/aspiration precautions) Recommend speech evaluation for diet upgrade as mentation improves. Continued RN efforts encouragement/cueing, total assistance feeding greatly appreciated.
[2020-02-07] VITALS (9 sets, daily range): BP systolic 114–152; BP diastolic 62–79; PULSE 61–81; RESP 17–20; TEMP 36.4–37.2; O2SAT 3–95; BMI 34.5
--- NOTE | 2020-02-07 05:36 | PC.NURSE ---
Pt is A&O to person and slept well through the night. Pt has been on 3L NC throughout the shift and has tolerated well with sats in the 90s. Lung sounds are diminished throughout with scattered rhonchi. Pt has been able to make conversation but refused all medications. PO intake is poor and pt refused a snack. UOP has been adequate via segal. Bowel sounds positive x4, abd soft and nontender. Skin is dry and intact with no sign of breakdown. Pt has been turned q2 throughout the night. PICC is noted to LUE and is patent. VSS, call light in reach, no concerns at this time.
[2020-02-07 07:07] LABS: Anion Gap 6.1 mEq/L (5-15); Blood Urea Nitrogen 9 mg/dl (7-17); Calcium 7.4 mg/dl (8.4-10.2); Carbon Dioxide 24 mmol/L (22.0-30.0); Chloride 113 mmol/L (98-107); Creatinine Clearance Estimated 60 mL/min (50-200); Estimated Glomerular Filt Rate 81 ml/min (>60); GFR (African American) 97 ML/MIN (>60); Glucose 123 mg/dl (74-100); Potassium 4.1 mmoL/L (3.5-5.1); Sodium 139 mmol/L (136-145)
--- NOTE | 2020-02-07 07:18 | PC.NURSE ---
All care supervised by primary RN Kandi Chacon
[2020-02-07 07:39] LABS: Basophils % 0.5 % (0.1-2.0); Eosinophils # 0.1 K/mm3 (0.0-0.4); Eosinophils % 1.6 % (0.1-12.0); Hematocrit 34.2 % (37.0-47.0); Hemoglobin 10.8 g/dL (12.2-16.2); Lymphocytes # 1.5 K/mm3 (0.7-4.5); Lymphocytes % 26.2 % (10-50); Mean Corpuscular HGB Conc 31.5 g/dL (31.8-35.4); Mean Corpuscular Hemoglobin 28.2 pg (27.0-31.2); Mean Corpuscular Volume 89.2 fl (81-99); Monocytes # 0.6 K/mm3 (0.1-1.0); Monocytes % 10.3 % (1.7-9.3); Neutrophils # 3.6 K/mm3 (1.8-7.8); Neutrophils % 61.5 % (37.0-80.0); Platelet Count 201 K/mm3 (142-424); Red Blood Count 3.83 M/mm3 (4.20-5.40); Red Cell Distribution Width 19.3 % (11.5-17.5); White Blood Count 5.9 K/mm3 (4.8-10.8)
--- NOTE | 2020-02-07 08:31 | HMH.ACPN2 ---
Internal Medicine - PN: Subj *Date: 02/07/20 *Time: 14:42 Interval history: Patient continues to tolerate 3 L nasal cannula oxygen. Saturations in the low to mid 90s. Hemodynamically stable, remains afebrile. Is somewhat talkative and interactive this morning on exam. Continues to have trouble swallowing food however has eaten small amounts over the past 24 hours of pudding. We will continue to promote p.o. intake. Speech eval planned for tomorrow. 2 large bowel movements, continues to be incontinent. No nausea or vomiting. No chest pain or worsening shortness of breath. Exam Vital signs and Labs for Last 24 Hours: Temp Pulse Resp BP Pulse Ox 98.0 F 75 20 125/67 93 L 02/07/20 08:00 02/07/20 08:00 02/07/20 08:00 02/07/20 08:00 02/07/20 08:00 Laboratory Results - last 24 hr 02/07/20 06:00: WBC 5.9, RBC 3.83 L, Hgb 10.8 L, Hct 34.2 L, MCV 89.2, MCH 28.2, MCHC 31.5 L, RDW 19.3 H, Plt Count 201, MPV 9.0, Neut % (Auto) 61.5, Lymph % (Auto) 26.2, [place] % (Auto) 10.3 H, Eos % (Auto) 1.6, Baso % (Auto) 0.5, Neut # (Auto) 3.6, Lymph # (Auto) 1.5, [place] # (Auto) 0.6, Eos # (Auto) 0.1, Baso # (Auto) 0.0 02/07/20 06:00: Sodium 139, Potassium 4.1 D, Chloride 113 H, Carbon Dioxide 24, Anion Gap 6.1, BUN 9, Creatinine 0.70, Estimated Creat Clear 60, Estimated GFR 81, Est GFR ( Amer) 97, Glucose 123 H, Calcium 7.4 L I & O for Last 24 hours: Intake & Output 02/04/20 02/05/20 02/06/20 02/07/20 23:59 23:59 23:59 23:59 Intake Total 2407 / 2407 2215 / 2215 2451 / 2451 140 / 140 Output Total 1050 / 1050 1100 / 1325 225 / 225 Balance 2407 / 2407 1165 / 1165 1351 / 1126 -85 / -85 Weight 83.206 kg 86.891 kg 85.36 kg 85.2 kg Narrative: Alert, ornery Responds to verbal stimuli lungs have good air movement, rhonchi present, no wheeze heart rate regular Abdomen soft extremities without perfusion problems; chronic deformity from arthritis. Assessment and Plan (1) Acute and chronic respiratory failure with hypoxia Status: Acute Category: Medical Code(s): J96.21 - Acute and chronic respiratory failure with hypoxia (2) COVID-19 Status: Acute Category: Medical Code(s): U07.1 - COVID-19 (3) Pneumonia Status: Acute Category: Medical Code(s): J18.9 - Pneumonia, unspecified organism (4) Acute exacerbation of chronic obstructive airways disease Status: Acute Category: Medical Code(s): J44.1 - Chronic obstructive pulmonary disease with (acute) exacerbation (5) Acute kidney injury Status: Acute Category: Medical Code(s): N17.9 - Acute kidney failure, unspecified (6) Obesity (BMI 30.0-34.9) Status: Chronic Category: Medical Code(s): E66.9 - Obesity, unspecified (7) Functional quadriplegia Status: Chronic Category: Medical Code(s): R53.2 - Functional quadriplegia (8) Malnutrition Status: Acute Qualifiers: Malnutrition type: protein-calorie malnutrition Category: Medical Code(s): E46 - Unspecified protein-calorie malnutrition - Assessment and plan all Dx Assessment and Plan for all problems:: Improvement, hypernatremia is resolved. - continue D5-1/2 NS - continue to encourage PO intake. Pt eating small amounts, intake at this time limited by her refusal to eat or dislike, rather than inability, feel a G/PEG tube would be contraindicated in this setting - Patient's oxygenation status is so much better that her risk of the procedure has gone down quite a bit. - If needs PEG however, Risk of infecting surgical staff is also lower as patient has been in hospital since January 23 and her positive test was before that, technically she is outside the 10 to 14-day window of infectivity. - continue meds for chronic conditions. remains full code Please note 1 hour critical care time.
--- NOTE | 2020-02-07 10:09 | PC.NURSE ---
This SRNA, was in pt room with MAURICE Lara when RN tried to give pt medicines. Pt yelled No, I'm not taking that mulitple times. RN proceeded to encourage pt to at least try to take meds in pudding, pt refused again. Pt encouraged to take sips of a drink, pt refused.
--- NOTE | 2020-02-07 10:11 | PC.NURSE ---
THIS RN ATTEMPTED TO ADMINISTER MEDICATIONS 3X. PATIENT CONTINUOUSLY CLOSED HER MOUTH AND SHOOK HER HEAD STATING, I AM NOT TAKING THAT! THIS RN EXPLAINED TO PATIENT THAT IT IS IMPORTANT FOR HER TO EAT OR DRINK TO GET WELL AND GO HOME. PATIENT CONTINUED TO SCREAM AT THIS RN THAT SHE WAS NOT GOING TO TAKE IT. THIS RN INQUIRED TO WHAT PATIENT WOULD LIKE, PATIENT STATED, SWEET TEA . THIS RN ATTEMPTED TO GIVE PATIENT HER SWEET TEA AND PATIENT SPIT IT OUT AND STATED, I AM NOT TAKING THAT! THIS RN WILL CONTINUE TO ATTEMPT TO PROVIDE NUTRITION FOR PATIENT.
--- NOTE | 2020-02-07 18:56 | PC.NURSE ---
PATIENT IS A&O X2, LUNGS ARE DIMINSHED, PULSES EQUAL. EDEMA NOTED IN BLE. PATIENT HAS REFUSED ALL FOOD AND DRINK FROM THIS RN. PATIENT REFUSED ORAL MEDICATIONS. THIS RN EXPLAINED TO PATIENT THE IMPORTANCE OF NUTRITION AND THAT SHE MAY POSSIBLY HAVE TO HAVE A TUBE PLACED IN HER STOMACH FOR FEEDING, PATIENT STATED, I DON'T CARE. PATIENT HAS HAD 2 LARGE WATERY BOWEL MOVEMENTS. PATIENT DOES NOT NOTIFY STAFF WHEN SOILED. NO NEW CONCERNS AT THIS TIME.
[2020-02-08] VITALS (9 sets, daily range): BP systolic 102–153; BP diastolic 55–93; PULSE 59–102; RESP 16–23; TEMP 36.6–37.2; O2SAT 95–98; BMI 34.7
--- NOTE | 2020-02-08 05:13 | PC.NURSE ---
Pt is A&O to person and has slept well through the night. Pt repeatedly refused evening meds as well as any food or drink. SHe stated she did not want anything at this time but might eat something for lunch. Pt began shift on 3L NC and was taken down to 2.5L NC with sats around 97%. Lung sounds are diminished but clear overall. Pt is alert and able on conversation but believes she in still in [facility]. UOP has been adequate via segal. Pt has been turned q2 this shift, skin is W/D/I. Abd is soft and nontender, bowel sounds are positive x4. VSS, call light in reach, no concerns at this time.
[2020-02-08 06:08] LABS: Basophils % 0.8 % (0.1-2.0); Eosinophils # 0.1 K/mm3 (0.0-0.4); Eosinophils % 1.3 % (0.1-12.0); Hemoglobin 10.7 g/dL (12.2-16.2); Lymphocytes # 1.6 K/mm3 (0.7-4.5); Lymphocytes % 30.9 % (10-50); Mean Corpuscular HGB Conc 31.5 g/dL (31.8-35.4); Mean Platelet Volume 8.6 fl (7.4-10.4); Monocytes # 0.5 K/mm3 (0.1-1.0); Monocytes % 10.5 % (1.7-9.3); Neutrophils # 2.8 K/mm3 (1.8-7.8); Neutrophils % 56.5 % (37.0-80.0); Platelet Count 193 K/mm3 (142-424); Red Cell Distribution Width 19.9 % (11.5-17.5)
[2020-02-08 06:22] LABS: Alanine Aminotransferase 12 U/L (12-78); Albumin Level 2.6 g/dl (3.5-5.0); Albumin/Globulin Ratio 0.8 (1.1-1.8); Alkaline Phosphatase 150 U/L (38-126); Anion Gap 8.9 mEq/L (5-15); Aspartate Amino Transferase 17 U/L (14-36); Bilirubin,Total 0.4 mg/dl (0.2-1.3); Blood Urea Nitrogen 5 mg/dl (7-17); Calcium 7.2 mg/dl (8.4-10.2); Carbon Dioxide 23 mmol/L (22.0-30.0); Chloride 112 mmol/L (98-107); Creatinine Clearance Estimated 61 mL/min (50-200); Estimated Glomerular Filt Rate 96 ml/min (>60); GFR (African American) 116 ML/MIN (>60); Globulin 3.2 g/dL (1.3-3.2); Glucose 101 mg/dl (74-100); Magnesium 1.3 mg/dl (1.6-2.3); Potassium 4.9 mmoL/L (3.5-5.1); Sodium 139 mmol/L (136-145); Total Protein,Serum 5.8 g/dl (6.3-8.2)
--- NOTE | 2020-02-08 07:54 | HMH.ACPN2 ---
Internal Medicine - PN: Subj *Date: 02/08/20 *Time: 10:00 Interval history: Med hemodynamically stable overnight. Tolerating 2 to 3 L nasal cannula oxygen. Saturations in the low to mid 90s, remains afebrile. Is talkative and interactive on exam. Doing better with swallowing. Difficulty with swallowing at this point appears to be more behavioral than functional. Is refusing multiple different things that are being offered to her including puddings and Jell-O. Have tried to provide things that she states she will enjoy but then she refuses them after 1 or 2 spoonfuls. Taking her medications orally with the use of pudding. Does not appear to have choking after eating. Small amounts of p.o. fluid intake. We will continue to promote p.o. intake. Speech eval consult placed. Having bowel movements and urinating independently/incontinent. No nausea or vomiting. No chest pain or worsening shortness of breath. Exam Vital signs and Labs for Last 24 Hours: Temp Pulse Resp BP Pulse Ox 97.9 F 59 L 18 140/93 H 98 02/08/20 03:54 02/08/20 03:54 02/08/20 03:54 02/08/20 03:54 02/08/20 03:54 Laboratory Results - last 24 hr 02/08/20 05:40: WBC 5.0, RBC 3.70 L, Hgb 10.7 L, Hct 34.0 L, MCV 92.0, MCH 29.0, MCHC 31.5 L, RDW 19.9 H, Plt Count 193, MPV 8.6, Neut % (Auto) 56.5, Lymph % (Auto) 30.9, [place] % (Auto) 10.5 H, Eos % (Auto) 1.3, Baso % (Auto) 0.8, Neut # (Auto) 2.8, Lymph # (Auto) 1.6, [place] # (Auto) 0.5, Eos # (Auto) 0.1, Baso # (Auto) 0.0 02/08/20 05:40: Sodium 139, Potassium 4.9, Chloride 112 H, Carbon Dioxide 23, Anion Gap 8.9, BUN 5 L D, Creatinine 0.60, Estimated Creat Clear 61, Estimated GFR 96, Est GFR ( Amer) 116, Glucose 101 H, Calcium 7.2 L, Magnesium 1.3 L, Total Bilirubin 0.4, AST 17, ALT 12, Alkaline Phosphatase 150 H, Total Protein 5.8 L, Albumin 2.6 L, Globulin 3.2, Albumin/Globulin Ratio 0.8 L I & O for Last 24 hours: Intake & Output 02/05/20 02/06/20 02/07/20 02/08/20 23:59 23:59 23:59 23:59 Intake Total 2215 / 2215 2451 / 2451 140 / 140 Output Total 1050 / 1050 1100 / 1325 2025 / 2425 400 / 400 Balance 1165 / 1165 1351 / 1126 -1885 / -2285 -400 / -400 Weight 86.891 kg 85.36 kg 85.2 kg 85.5 kg Narrative: Alert, ornery Responds to verbal stimuli lungs have good air movement, rhonchi present, no wheeze heart rate regular Abdomen soft extremities without perfusion problems; chronic deformity from arthritis. Assessment and Plan (1) Acute and chronic respiratory failure with hypoxia Status: Acute Category: Medical Code(s): J96.21 - Acute and chronic respiratory failure with hypoxia (2) COVID-19 Status: Acute Category: Medical Code(s): U07.1 - COVID-19 (3) Pneumonia Status: Acute Category: Medical Code(s): J18.9 - Pneumonia, unspecified organism (4) Acute exacerbation of chronic obstructive airways disease Status: Acute Category: Medical Code(s): J44.1 - Chronic obstructive pulmonary disease with (acute) exacerbation (5) Acute kidney injury Status: Acute Category: Medical Code(s): N17.9 - Acute kidney failure, unspecified (6) Obesity (BMI 30.0-34.9) Status: Chronic Category: Medical Code(s): E66.9 - Obesity, unspecified (7) Functional quadriplegia Status: Chronic Category: Medical Code(s): R53.2 - Functional quadriplegia (8) Malnutrition Status: Acute Qualifiers: Malnutrition type: protein-calorie malnutrition Category: Medical Code(s): E46 - Unspecified protein-calorie malnutrition - Assessment and plan all Dx Assessment and Plan for all problems:: 79-year-old female, chronic debility, functional quadriplegia, clinically improving from her COVID-19 pneumonia. Showing gradual improvement with p.o. intake. - hypernatremia is resolved. - continue D5-1/2 NS, decreased rate as she continues to take oral intake. -Speech consult placed - Pt eating small amounts, intake at this time limited by her refusal to eat or di
--- NOTE | 2020-02-08 18:44 | PC.NURSE ---
PATIENT IS A&O X2, AUDIBLE WHEEZING HEARD, PULSES EQUAL. PATIENT ATE A CUP OF VANILLA PUDDING THIS AM, AFTER COMPLETING HER PUDDING, PATIENT BEGAN SCREAMING HELP ME, I CAN'T BREATHE. THIS RN ASSESSED PATIENT O2 WAS 90 ON 3L NC. PATIENT BECAME RED IN FACE AND BEGAN PANICKING. THIS RN ADMINISTERED ORDERED ATIVAN AND PAGED RT, RT CAME TO THE ROOM AND ADMINISTERED A BREATHING TREATMENT. PATIENT RELAXED. PATIENT REFUSED ALL MEALS, DRINKS AND MEDICATION DURING THE REST OF THIS RN SHIFT. NO OTHER CONCERNS AT THIS TIME.
[2020-02-09 03:36] VITALS: PULSE 77; RESP 19; TEMP 37.1; O2SAT 98
[2020-02-09 03:40] VITALS: BP 146/70
--- NOTE | 2020-02-09 04:04 | PC.NURSE ---
Pt is A&O to person and has carried on conversations this shift. Speech is clearer and pt is alert. Pt has slept well through the night. O2 sats have been in the mid to high 90s on 3L NC. Lung sounds are diminished with scattered crackles. Pt has refused all oral intake including medications. She states she doesn't want anything right now, but may eat something for lunch. UOP has been adequate via segal. Bowel sounds positive x4, abd soft and nontender. Pt has been turned q2h this shift. Skin is W/D/I. PICC in LUE is patent. VSS, call light in reach. No concerns at this time.
[2020-02-09 05:00] VITALS: BMI 34.6
[2020-02-09 06:23] LABS: Basophils # 0.1 K/mm3 (0-0.2); Basophils % 0.9 % (0.1-2.0); Eosinophils # 0.2 K/mm3 (0.0-0.4); Eosinophils % 3.5 % (0.1-12.0); Hematocrit 34.9 % (37.0-47.0); Hemoglobin 10.8 g/dL (12.2-16.2); Lymphocytes # 1.4 K/mm3 (0.7-4.5); Lymphocytes % 27.9 % (10-50); Mean Corpuscular HGB Conc 30.9 g/dL (31.8-35.4); Mean Corpuscular Hemoglobin 28.6 pg (27.0-31.2); Mean Corpuscular Volume 92.5 fl (81-99); Mean Platelet Volume 9.1 fl (7.4-10.4); Monocytes # 0.5 K/mm3 (0.1-1.0); Neutrophils # 2.9 K/mm3 (1.8-7.8); Neutrophils % 57.6 % (37.0-80.0); Platelet Count 184 K/mm3 (142-424); Red Blood Count 3.78 M/mm3 (4.20-5.40); Red Cell Distribution Width 19.8 % (11.5-17.5)
[2020-02-09 06:35] LABS: Alanine Aminotransferase 13 U/L (12-78); Albumin Level 2.7 g/dl (3.5-5.0); Albumin/Globulin Ratio 0.8 (1.1-1.8); Alkaline Phosphatase 156 U/L (38-126); Anion Gap 7.9 mEq/L (5-15); Aspartate Amino Transferase 21 U/L (14-36); Bilirubin,Total 0.4 mg/dl (0.2-1.3); Blood Urea Nitrogen 3 mg/dl (7-17); Calcium 7.6 mg/dl (8.4-10.2); Carbon Dioxide 23 mmol/L (22.0-30.0); Chloride 110 mmol/L (98-107); Creatinine Clearance Estimated 60 mL/min (50-200); Estimated Glomerular Filt Rate 81 ml/min (>60); GFR (African American) 97 ML/MIN (>60); Globulin 3.2 g/dL (1.3-3.2); Glucose 106 mg/dl (74-100); Magnesium 1.7 mg/dl (1.6-2.3); Potassium 5.9 mmoL/L (3.5-5.1); Sodium 135 mmol/L (136-145); Total Protein,Serum 5.9 g/dl (6.3-8.2)
[2020-02-09 07:58] VITALS: BP 86/64; PULSE 85; RESP 20; TEMP 36.4; O2SAT 95
[2020-02-09 08:00] VITALS: O2SAT 97
--- NOTE | 2020-02-09 09:02 | SW/DCPLANNER ---
PATIENT IS DISCHARGING BACK TO [facility] WHERE HER BED WAS BEING HELD FOR HER RETURN... NOTIFIED FACILITY OF HER DISCHARGING BACK.
--- NOTE | 2020-02-09 09:16 | HMH.DCSUM ---
General - General Admission date:: 01/24/20 Discharge date: 02/09/20 HPI HPI: Patient is an 79-year-old female presenting with shortness of air with Covid positive status. On arrival, patient does have acute respiratory distress. On nonrebreather at 10 L her saturations are in the mid 90s she does have tachypnea, accessory muscle use. I am concerned that she may need noninvasive positive pressure ventilation or even intubation. No negative pressure rooms available in the emergency department so arrangements for patient to be taken to the ICU while still under ER care made. Patient taken to room 263 and placed on BiPAP. X-ray was obtained on her arrival she was hypertensive to ensure no overt pulmonary edema. No overt currently edema but there does appear to be a right lung infiltrate that could be a superimposed bacterial infection. Sepsis bundle initiated immediately on arrival as infectious source is leading suspicion. Vancomycin and cefepime given for hospital acquired pneumonia. 2 sets of blood cultures obtained prior to this with lactic acid with reflex pending. She is an 79-year-old female I believe 30 cc/kg bolus of crystalloid solution would be more harmful than beneficial. A 500 cc KG bolus given initially. Fluid status/perfusion status will be monitored closely. Other lab work will also be obtained. I did reach out to family, daughter Jnen, and discussed patient's care in detail. Currently, patient is a full code and daughter would like patient to be resuscitated accordingly. She is the guardian. After several minutes on BiPAP patient has had drastic improvement on recheck. ABG demonstrates no hypercapnia or hypoxia. She is resting comfortably in exam bed with resolution of tachycardia and more normotensive at this time. Covid cocktail has been ordered. Per emergency department physician. [facility] is a [facility]. Diagnosed with COVID-19 several days ago, not a candidate for antibody therapy infusion because of increasing oxygen requirement, treated with supportive care at the [facility] but became more tenuous and was transferred to ER as noted above. Events of yesterday noted. Patient now in special care unit on BiPAP. Much more stable through the night. Hospital Course Hospital Course: Patient was admitted, and had a very long course in the Covid unit. She was initially placed on high intensity BiPAP. She did overall, eventually, well with this, but was very tenuous for the first week she was here. Multiple placements of NG tube were considered but she had bradycardia episodes, significant behavior issues and nasal blockages. Ultimately, as documented in our daily progress notes, she improved in a slow but very stepwise fashion and was able to eat some food over the last 3 days and eventually transition from BiPAP to facemask to nasal cannula and today she remains on 2 L nasal cannula with very acceptable saturations. Blood counts and electrolytes have been stable over the past couple of days and acute kidney injury has resolved. She has finished up all needed antibiotic therapy and Covid related therapy, she will be stable to transfer back to [facility] today. Her daughter continues to insist on full CODE STATUS although this seems to be unwise, and is still interested in a PEG tube although I do not think the patient would tolerate this procedure well given her multiple comorbidities. However, hopefully she can ramp up oral intake at the [facility]. Patient does not need to be in isolation as she is over 3 weeks out from Covid diagnosis and is by definition no longer contagious. prison follow-up will be per our rounds at the [facility]. Please note she will need a BMP and CBC on February 11. Objective Vital signs: Temp Pulse Resp BP Pulse Ox 97.5 F L 85 20 86/64 L 95 02/09/20 07:58 02/09/20 07:58 02/09/20 07:58 02/09/20 07:58 02/09/20 07:58 no
== END 2020-02-09 12:29 | DRG 177 ==
LOC: ER 15:44 → ICU 16:53
PROVIDERS: Internal Medicine Adolescent Medicine; Admitting Provider Family Medicine; Emergency Provider Emergency Medicine; PCP Internal Medicine Adolescent Medicine; Visit Provider Internal Medicine Adolescent Medicine
DX: U07.1 COVID-19 (principal); J96.21 Acute and chronic respiratory failure with hypoxia; J12.82 Pneumonia due to coronavirus disease 2019; R53.2 Functional quadriplegia; J44.1 Chronic obstructive pulmonary disease with (acute) exacerbation; E46 Unspecified protein-calorie malnutrition; E87.0 Hyperosmolality and hypernatremia; I13.0 Hypertensive heart and chronic kidney disease with heart failure and stage 1 through stage 4 chronic kidney disease, or unspecified chronic kidney disease; I50.42 Chronic combined systolic (congestive) and diastolic (congestive) heart failure; E78.5 Hyperlipidemia, unspecified; Z99.81 Dependence on supplemental oxygen; N18.30 Chronic kidney disease, stage 3 unspecified; F39 Unspecified mood [affective] disorder; R63.3 Feeding difficulties
CPT/HCPCS: 36415; 36569; 71045; 80048; 80053; 80202; 81001; 82803; 83605; 83735; 84484; 85025; 87040; 87070; 87086; 87205; 87581; 87633; 87798; 92526; 92610; 93306; 93308; 94640; 94660; 94760; 94761; 96365; 96375; 99284; C1751; J2405; J3370

== ENCOUNTER → 2020-05-10 09:30 | Outpatient (CLI) | payer MEDICARE, MEDICAID, SELFPAY ==
[2020-05-10 15:41] LABS: Basophils # 0.1 K/mm3 (0-0.2); Eosinophils # 0.3 K/mm3 (0.0-0.4); Eosinophils % 5.8 % (0.1-12.0); Hematocrit 36.3 % (37.0-47.0); Lymphocytes % 43.2 % (10-50); Mean Corpuscular HGB Conc 30.4 g/dL (31.8-35.4); Mean Corpuscular Hemoglobin 28.6 pg (27.0-31.2); Mean Corpuscular Volume 94.3 fl (81-99); Mean Platelet Volume 8.8 fl (7.4-10.4); Monocytes # 0.3 K/mm3 (0.1-1.0); Monocytes % 6.6 % (1.7-9.3); Neutrophils % 43.5 % (37.0-80.0); Platelet Count 327 K/mm3 (142-424); Red Blood Count 3.85 M/mm3 (4.20-5.40); Red Cell Distribution Width 15.9 % (11.5-17.5); White Blood Count 4.7 K/mm3 (4.8-10.8)
[2020-05-10 15:54] LABS: Chloride 112 mmol/L (98-107); Sodium 141 mmol/L (136-145)
[2020-05-10 15:55] LABS: Potassium 3.6 mmoL/L (3.5-5.1)
[2020-05-10 15:57] LABS: Alanine Aminotransferase 5 U/L (12-78); Albumin Level 2.4 g/dl (3.5-5.0); Albumin/Globulin Ratio 0.8 (1.1-1.8); Alkaline Phosphatase 145 U/L (38-126); Anion Gap 7.6 mEq/L (5-15); Aspartate Amino Transferase 18 U/L (14-36); Bilirubin,Total 0.2 mg/dl (0.2-1.3); Blood Urea Nitrogen 20 mg/dl (7-17); Carbon Dioxide 25 mmol/L (22.0-30.0); Estimated Glomerular Filt Rate 81 ml/min (>60); GFR (African American) 97 ML/MIN (>60); Globulin 3.1 g/dL (1.3-3.2); Total Protein,Serum 5.5 g/dl (6.3-8.2)
[2020-05-10 15:58] LABS: Glucose 72 mg/dl (74-100)
== END ==
PROVIDERS: Visit Provider Nurse Practitioner Family
DX: J44.9 Chronic obstructive pulmonary disease, unspecified (principal); E87.6 Hypokalemia
CPT/HCPCS: 36415; 80053; 85025

== ENCOUNTER → 2020-10-14 07:44 | Outpatient (CLI) | payer MEDICARE, MEDICAID, SELFPAY ==
[2020-10-14 09:08] LABS: Basophils # 0.1 K/mm3 (0-0.2); Basophils % 1.2 % (0.1-2.0); Eosinophils # 0.1 K/mm3 (0.0-0.4); Eosinophils % 1.8 % (0.1-12.0); Hematocrit 42.8 % (37.0-47.0); Hemoglobin 12.8 g/dL (12.2-16.2); Lymphocytes # 3.3 K/mm3 (0.7-4.5); Lymphocytes % 40.9 % (10-50); Mean Corpuscular Hemoglobin 30.3 pg (27.0-31.2); Mean Platelet Volume 9.9 fl (7.4-10.4); Monocytes # 0.7 K/mm3 (0.1-1.0); Monocytes % 8.2 % (1.7-9.3); Neutrophils # 3.8 K/mm3 (1.8-7.8); Neutrophils % 47.9 % (37.0-80.0); Platelet Count 392 K/mm3 (142-424); Red Blood Count 4.24 M/mm3 (4.20-5.40); Red Cell Distribution Width 15.4 % (11.5-17.5)
[2020-10-14 09:29] LABS: Chloride 112 mmol/L (98-107); Potassium 4.8 mmoL/L (3.5-5.1); Sodium 148 mmol/L (136-145)
[2020-10-14 09:31] LABS: Blood Urea Nitrogen 52 mg/dl (7-17); Estimated Glomerular Filt Rate 60 ml/min (>60); GFR (African American) 73 ML/MIN (>60)
[2020-10-14 09:32] LABS: Alanine Aminotransferase 44 U/L (12-78); Albumin Level 2.8 g/dl (3.5-5.0); Albumin/Globulin Ratio 0.8 (1.1-1.8); Alkaline Phosphatase 122 U/L (38-126); Anion Gap 12.8 mEq/L (5-15); Aspartate Amino Transferase 66 U/L (14-36); Bilirubin,Total 0.3 mg/dl (0.2-1.3); Calcium 8.8 mg/dl (8.4-10.2); Carbon Dioxide 28 mmol/L (22.0-30.0); Globulin 3.6 g/dL (1.3-3.2); Glucose 96 mg/dl (74-100); Total Protein,Serum 6.4 g/dl (6.3-8.2)
== END ==
PROVIDERS: Visit Provider Nurse Practitioner Family
DX: N17.9 Acute kidney failure, unspecified (principal)
CPT/HCPCS: 36415; 80053; 85025

== ENCOUNTER → 2020-10-22 22:06 | Outpatient (CLI) | payer MEDICARE, MEDICAID, SELFPAY ==
[2020-10-22 22:08] LABS: Microscopic, Urine URINE MICROSCOPIC (MICROSCOPIC)
[2020-10-22 22:19] LABS: Appearance,Urine CLOUDY (Clear); Bilirubin,Urine Negative (Negative); Blood, Urine 3+ (Negative); Color,Urine YELLOW (Yellow); Glucose,Urine (UA) Negative (Negative); Ketones,Urine Negative (Negative); Leukocyte Esterase,Urine 2+ (Negative); Nitrate,Urine Negative (Negative); Protein,Urine 2+ (Negative); Specific Gravity, Urine >= 1.030 (1.005-1.030)
[2020-10-22 22:42] LABS: Bacteria,Urine 1+ /lpf; RBC,Urine TNTC #/hpf (0-3); WBC,Urine TNTC #/hpf (0-3)
== END ==
PROVIDERS: Visit Provider Nurse Practitioner Family
DX: N39.0 Urinary tract infection, site not specified (principal); B96.20 Unspecified Escherichia coli [E. coli] as the cause of diseases classified elsewhere; B96.4 Proteus (mirabilis) (morganii) as the cause of diseases classified elsewhere
CPT/HCPCS: 81001; 87086; 87088; 87186